=== PATIENT | female | born 1985 | race Caucasian/White ===

== ENCOUNTER 2022-05-26 08:01 | Emergency (ER) | payer BC, SELFPAY ==
[2022-05-26 08:05] VITALS: BP 122/63; PULSE 95; RESP 18; TEMP 36.5; O2SAT 98; BMI 34.7
[2022-05-26 08:13] VITALS: BP 122/63; PULSE 95; RESP 18; TEMP 36.5; O2SAT 98
--- NOTE | 2022-05-26 08:13 | HMH.EDUTC ---
[facility] [place] Clinical Impression: Otitis media Qualifiers: Otitis media type: suppurative Chronicity: acute Laterality: right Recurrence: non-recurrent Spontaneous tympanic membrane rupture: without spontaneous rupture Qualified Code(s): H66.001 - Acute suppurative otitis media without spontaneous rupture of ear drum, right ear Disposition: Home, Self-Care Condition on Discharge: Good Instructions: Middle Ear Infection Additional Instructions: Start antibiotic as soon as possible and be sure to take as ordered for full length of time even though he should start feeling better in 24-48 hours. Tylenol or Motrin as needed for pain or fever Encourage fluids, water, Gatorade, Powerade, Pedialyte if /toddler/child Warm compresses often helps when placed over ear Return immediately for new or worsening symptoms no noticeable improvement in 48-72 hours and in 10-14 days to ensure the ears are return to baseline. Follow-up with primary care Prescriptions: Amoxicillin [Amoxicillin 500mg Tab] 500 mg PO BID 10 Days #20 tab Transmission Status: Pending to [facility] Fluticasone Propionate [Flonase 50mcg nasal spray 16gm] 1 spr NS DAILY 14 Days #9.9 ml Transmission Status: Pending to [facility] Referrals: Jamari Lee APRN [Primary Care Provider] - Time of Disposition: 08:17 Medical Decision Making - Dmitriy Inquiry Pt receiving controlled substance: No Vital Signs: 05/26/22 08:05 Temperature 97.7 F Temperature Source Oral Pulse Rate [Left Brachial] 95 H Respiratory Rate 18 Blood Pressure [Left Arm] 122/63 Blood Pressure Mean [Left Arm] 82 Blood Pressure Source [Left Arm] Automatic Cuff Blood Pressure Position [Left Arm] Sitting 02 Sat by Pulse Oximetry 98 Oxygen Delivery Method Room Air [facility] [place] HPI - General Chief complaint: Urgent [facility] Stated complaint: ear pain,dizzy Time Seen by Provider: 05/26/22 08:13 Mode of Arrival: Ambulatory Source of Information: Patient Limitations: No Limitations Description of Symptoms (Recalled from Triage Doc. by RN): PATIENT C/O STOPPED UP RIGHT EAR AND DIZZINESS X 1 WEEK HEENT Symptoms (Recalled from RN notes): Yes Resp Symptoms (Recalled from RN notes): No Skin Symptoms (Recalled from RN notes): No MS Symptoms (Recalled from RN notes): No Functional Status (Recalled from RN notes): WNL - History of Present Illness Provider Complaint: 37 yr old female presents for rt ear fullnes,cant hear out of rt ear and dizzy for 1 week - Related Data Home Medications Medication Instructions Recorded Confirmed acyclovir 400 mg tablet 400 mg PO .prn tab 03/28/22 03/28/22 buspirone 10 mg tablet 10 mg PO DAILY tab 03/28/22 03/28/22 omeprazole 20 mg capsule,delayed 20 mg PO DAILY cap 03/28/22 03/28/22 release sertraline 50 mg tablet 50 mg PO tab 03/28/22 03/28/22 Previous Rx's Medication Instructions Recorded benzonatate 100 mg capsule 100 mg PO TID PRN #30 cap 03/28/22 zkmcnxiwvzeezzm-tppzaigrapuxwnv-AJ 10 ml PO Q6H PRN #200 ml 03/30/22 2 mg-30 mg-10 mg/5 mL oral syrup Amoxicillin [Amoxicillin 500mg Tab] 500 mg PO BID 10 Days #20 tab 05/26/22 Fluticasone Propionate [Flonase 1 spr NS DAILY 14 Days #9.9 ml 05/26/22 50mcg nasal spray 16gm] Allergies Allergy/AdvReac Type Severity Reaction Status Date / Time No Known Allergies Allergy Verified 03/28/22 13:09 - Worker's Comp Is this a Worker's Comp case?: No [facility] History - Hepatitis A Screen Attestation statement:: This patient has been screened for Hepatitis A risk factors. I have reviewed the patient's past medical history: Yes Medical History: Reports:: Anxiety, Depression, Gastroesophageal Reflux Disease(GERD) - Social History Smoking Status: Never smoker Alcohol Intake: never Substance Use Type: denies use Occupational Status: unemployed - Psychiatric History Pschychiatric History:: Reports:: Anxiety, Depression Family Hx:: No significant family history R
== END 2022-05-26 08:20 | disposition home or self-care (01) ==
PROVIDERS: Emergency Provider Nurse Practitioner Family; PCP Nurse Practitioner Family
DX: H66.001 Acute suppurative otitis media without spontaneous rupture of ear drum, right ear (principal); H92.03 Otalgia, bilateral; R42 Dizziness and giddiness; H93.8X1 Other specified disorders of right ear
CPT/HCPCS: 99212; G0463

== ENCOUNTER 2022-07-05 17:09 | Emergency (ER) | payer BC, SELFPAY ==
--- NOTE | 2022-07-05 17:18 | EXP.UTC ---
Discharge Plan Disposition Patient Disposition: Home, Self-Care Condition: Good Prescriptions Prescriptions: New azithromycin [Zithromax] 250 mg tablet 250 mg PO UD DOSE PK Qty: 6 0RF Rx Instructions: Take two (2) tablets today, then one (1) tablet days #2 thru #5 methylprednisolone 4 mg Tablets,Dose Pack 4 mg PO DIRECTED Qty: 21 0RF ondansetron 4 mg Tablet,Disintegrating 4 mg PO Q8H PRN (Reason: Nausea) Qty: 20 0RF No Action sertraline 50 mg tablet 50 mg PO omeprazole 20 mg capsule,delayed release(DR/EC) 20 mg PO DAILY buspirone 10 mg tablet 10 mg PO DAILY acyclovir 400 mg tablet 400 mg PO .prn benzonatate 100 mg capsule 100 mg PO TID PRN (Reason: cough) Qty: 30 0RF idhrglmnisfhwki-gxiwdeyfa-BY 2-30-10 mg/5 mL syrup 10 ml PO Q6H PRN (Reason: cold symptoms) Qty: 200 0RF Rx Instructions: Tessalon ineffective amoxicillin 500 MG tablet 500 mg PO BID 10 Days Qty: 20 0RF fluticasone propionate 120 SPR/BOT bottle 1 spr NS DAILY 14 Days Qty: 9.9 0RF Referrals Follow up/Referrals: Jamari Lee APRN [Primary Care Provider] - See instructions Activity Restrictions/Add. Instructions Additional Instructions/Restrictions: Drink plenty of fluids. Take tylenol or ibuprofen for pain or fever. Take the medications as directed. Follow up with your regular doctor. GO TO THE ER FOR ANY WORSENING SYMPTOMS Quarantine until you know the results of your covid-19 test. Notify your school or workplace of your results and follow their instructions regarding return to work/school. Clinical Impressions Clinical Impression: Otitis media, Benign paroxysmal positional vertigo Stand Alone Forms Stand Alone Forms: Work/School Release Instructions Patient Instructions: DI for Benign Paroxysmal Positional Vertigo Discharge ED Provider: Ivan Hylton [facility] General Stated complaint: Dizzy nausa Time Seen by Provider: 07/05/22 17:19 History of Present Illness Provider Complaint: She states that she has been having right ear pain and intermittent dizziness since this morning. She has a history of getting vertigo when she has ear infections. Related Data Home Medications Medication Instructions Recorded Confirmed acyclovir 400 mg tablet 400 mg PO .prn 03/28/22 03/28/22 buspirone 10 mg tablet 10 mg PO DAILY 03/28/22 03/28/22 omeprazole 20 mg capsule,delayed 20 mg PO DAILY 03/28/22 03/28/22 release sertraline 50 mg tablet 50 mg PO 03/28/22 03/28/22 Previous Rx's Medication Instructions Recorded benzonatate 100 mg capsule 100 mg PO TID PRN cough #30 caps 03/28/22 orhyunkchnuvrdz-gajxesmemeuelwj-VN 10 ml PO Q6H PRN cold symptoms 03/30/22 2 mg-30 mg-10 mg/5 mL oral syrup #200 mL amoxicillin 500 mg tablet 500 mg PO BID 10 days #20 tabs 05/26/22 fluticasone propionate 50 1 spr intranasal DAILY 14 days 05/26/22 mcg/actuation nasal #9.9 mL spray,suspension azithromycin 250 mg tablet 250 mg PO UD DOSE PK #6 tabs 07/05/22 (Zithromax) methylprednisolone 4 mg tablets in 4 mg PO DIRECTED #21 tabs 07/05/22 a dose pack ondansetron 4 mg disintegrating 4 mg PO Q8H PRN Nausea #20 tabs 07/05/22 tablet Allergies Allergy/AdvReac Type Severity Reaction Status Date / Time No Known Allergies Allergy Verified 03/28/22 13:09 PFSH PFSH Social History Smoking Status: Never smoker alcohol intake: never substance use type: denies use current occupational status: unemployed Travel in the last 8 weeks: None ROS Obtained: Yes All systems reviewed & no additional complaints except as documented Constitutional Constitutional: Denies chills, Reports fever(s) and Reports poor appetite Eyes Eyes: Denies eye discharge ENT Ears, Nose, Mouth, and Throat: Reports otalgia, Denies hearing loss, Denies sinus pain and Reports sore throat Cardiovascular Cardiovascular: Denies chest pain and Denies dyspnea Respiratory
[2022-07-05 17:19] VITALS: BP 113/67; PULSE 89; RESP 16; TEMP 36.9; O2SAT 96; BMI 34.3
[2022-07-05 18:01] VITALS: BP 113/67; PULSE 89; RESP 16; TEMP 36.9
== END 2022-07-05 18:07 | disposition home or self-care (01) ==
PROVIDERS: Emergency Provider Nurse Practitioner Family; PCP Nurse Practitioner Family
DX: H66.90 Otitis media, unspecified, unspecified ear (principal); H81.10 Benign paroxysmal vertigo, unspecified ear
CPT/HCPCS: 99212; C9803; G0463; U0003; U0005

== ENCOUNTER 2022-10-11 09:57 | Emergency (ER) | payer BC, SELFPAY ==
--- NOTE | 2022-10-11 10:45 | EXP.UTC ---
Discharge Plan Disposition Patient Disposition: Home, Self-Care Condition: Good Prescriptions Prescriptions: New azithromycin [Zithromax] 250 mg tablet 250 mg PO UD DOSE PK Qty: 6 0RF Rx Instructions: Take two (2) tablets today, then one (1) tablet days #2 thru #5 benzonatate [benzonatate] 100 mg capsule 100 mg PO TIDP PRN (Reason: Cough) Qty: 30 0RF methylprednisolone 4 mg Tablets,Dose Pack 4 mg PO DIRECTED Qty: 21 0RF No Action sertraline 50 mg tablet 50 mg PO omeprazole 20 mg capsule,delayed release(DR/EC) 20 mg PO DAILY buspirone 10 mg tablet 10 mg PO DAILY acyclovir 400 mg tablet 400 mg PO .prn fluticasone propionate 50 mcg/actuation spray,suspension 1 spray NS DAILY 14 Days Qty: 9.9 1RF phentermine 37.5 mg tablet 37.5 mg PO DAILY Label Comments: Patient states she only takes 1/2 tablet Rx Instructions: must administer 30 minutes before or 1-2 hours after breakfast fluticasone propionate [Flonase Allergy Relief] 50 mcg/actuation spray,suspension 1 spray intranasal DAILY Qty: 16 2RF Rx Instructions: administer into each nostril azelastine 205.5 mcg (0.15 %) spray,non-aerosol 1 spray intranasal HS Qty: 30 2RF Rx Instructions: administer into each nostril ondansetron 4 mg Tablet,Disintegrating 4 mg PO Q8H PRN (Reason: Nausea) Qty: 20 0RF Referrals Follow up/Referrals: Jamari Lee APRN [Primary Care Provider] - See instructions Activity Restrictions/Add. Instructions Additional Instructions/Restrictions: Drink plenty of fluids. Take tylenol or ibuprofen for pain or fever. Take the medications as directed. Follow up with your regular doctor. GO TO THE ER FOR ANY WORSENING SYMPTOMS Clinical Impressions Clinical Impression: Bronchitis, Acute viral syndrome Stand Alone Forms Stand Alone Forms: Work/School Release Instructions Patient Instructions: DI for Acute Bronchitis, DI for Viral Syndrome Discharge ED Provider: Ivan Hylton [facility] [place] Stated complaint: DIXON, body aches, congestion Time Seen by Provider: 10/11/22 10:45 History of Present Illness Provider Complaint: She states that for the past 2 days she has had sore throat, chills, body aches and low grade fever. Related Data Home Medications Medication Instructions Recorded Confirmed acyclovir 400 mg tablet 400 mg PO .prn 03/28/22 10/03/22 buspirone 10 mg tablet 10 mg PO DAILY 03/28/22 10/03/22 omeprazole 20 mg capsule,delayed 20 mg PO DAILY 03/28/22 10/03/22 release sertraline 50 mg tablet 50 mg PO 03/28/22 10/03/22 phentermine 37.5 mg tablet 37.5 mg PO DAILY weight loss 08/02/22 10/03/22 Previous Rx's Medication Instructions Recorded ondansetron 4 mg disintegrating 4 mg PO Q8H PRN Nausea #20 tabs 07/05/22 tablet fluticasone propionate 50 1 spray intranasal DAILY 14 days 08/02/22 mcg/actuation nasal #9.9 mL spray,suspension azelastine 205.5 mcg (0.15 %) 1 spray intranasal HS #30 mL 10/03/22 nasal spray fluticasone propionate 50 1 spray intranasal DAILY #16 grams 10/03/22 mcg/actuation nasal spray,suspension (Flonase Allergy Relief) azithromycin 250 mg tablet 250 mg PO UD DOSE PK #6 tabs 10/11/22 (Zithromax) benzonatate 100 mg capsule 100 mg PO TIDP PRN Cough #30 caps 10/11/22 methylprednisolone 4 mg tablets in 4 mg PO DIRECTED #21 tabs 10/11/22 a dose pack Allergies Allergy/AdvReac Type Severity Reaction Status Date / Time No Known Allergies Allergy Verified 10/11/22 11:02 [facility] Disclaimer: The information contained in this section may have been updated after the patient was seen, as this information can be updated by other users. Medical History Anxiety Bilateral serous otitis media Depression Surgical History History of placement of ear tubes Histo
[2022-10-11 10:57] VITALS: BP 108/77; PULSE 87; RESP 16; TEMP 37; O2SAT 97; BMI 32.4
[2022-10-11 11:05] LABS: UTC Strep Screen (Rapid) Negative (Negative)
[2022-10-11 11:29] VITALS: BP 108/77; PULSE 87; RESP 16; TEMP 37
[2022-10-11 11:54] LABS: Influenza A, PCR Not Detected (NotDetected); Influenza B, PCR Not Detected (NotDetected)
[2022-10-11 12:18] LABS: Coronavirus 19, PCR Detected (NotDetected)
== END 2022-10-11 11:29 | disposition home or self-care (01) ==
PROVIDERS: Emergency Provider Nurse Practitioner Family; PCP Nurse Practitioner Family
DX: U07.1 COVID-19 (principal); H65.93 Unspecified nonsuppurative otitis media, bilateral; J02.9 Acute pharyngitis, unspecified; R50.9 Fever, unspecified; R05.9 Cough, unspecified; R11.0 Nausea; M79.10 Myalgia, unspecified site; R09.81 Nasal congestion; F32.A Depression, unspecified; F41.9 Anxiety disorder, unspecified; Z79.51 Long term (current) use of inhaled steroids; Z79.52 Long term (current) use of systemic steroids; Z79.899 Other long term (current) drug therapy
CPT/HCPCS: 87880; 99213; C9803; G0463; U0003; U0005

== ENCOUNTER → 2022-11-08 06:06 | Outpatient (CLI) | payer BC, SELFPAY ==
[2022-11-08 18:20] LABS: Chloride 107 mmol/L (98-107); Potassium 4.2 mmoL/L (3.5-5.1); Sodium 141 mmol/L (136-145)
[2022-11-08 18:22] LABS: Alanine Aminotransferase 14 U/L (12-78); Aspartate Amino Transferase 34 U/L (14-36); Blood Urea Nitrogen 15 mg/dl (7-17); Estimated Glomerular Filt Rate 82 ml/min (>60); GFR (African American) 99 ML/MIN (>60)
[2022-11-08 18:23] LABS: Albumin Level 4.2 g/dl (3.5-5.0); Albumin/Globulin Ratio 1.5 (1.1-1.8); Alkaline Phosphatase 83 U/L (38-126); Anion Gap 12.2 mEq/L (5-15); Bilirubin,Total 0.6 mg/dl (0.2-1.3); Calcium 8.9 mg/dl (8.4-10.2); Carbon Dioxide 26 mmol/L (22.0-30.0); Chol/HDL Ratio 3.8 (1-3.5); Cholesterol 218 mg/dl (140-200); Globulin 2.8 g/dL (1.3-3.2); Glucose 78 mg/dl (74-100); HDL Cholesterol 57 mg/dl (40-60); Triglycerides 138 mg/dl (30-150); VLDL Cholesterol 28 mg/dL (0-40)
[2022-11-08 18:24] LABS: Basophils # 0.1 K/mm3 (0-0.2); Basophils % 1.2 % (0.1-2.0); Eosinophils # 0.4 K/mm3 (0.0-0.4); Eosinophils % 4.8 % (0.1-12.0); Hematocrit 42.7 % (37.0-47.0); Hemoglobin 13.8 g/dL (12.2-16.2); Lymphocytes # 2.7 K/mm3 (0.7-4.5); Lymphocytes % 36.7 % (10-50); Mean Corpuscular HGB Conc 32.4 g/dL (31.8-35.4); Mean Corpuscular Hemoglobin 28.6 pg (27.0-31.2); Mean Corpuscular Volume 88.3 fl (81-99); Mean Platelet Volume 7.4 fl (7.4-10.4); Monocytes # 0.3 K/mm3 (0.1-1.0); Monocytes % 4.5 % (1.7-9.3); Neutrophils # 3.9 K/mm3 (1.8-7.8); Neutrophils % 52.6 % (37.0-80.0); Platelet Count 346 K/mm3 (142-424); Red Blood Count 4.84 M/mm3 (4.20-5.40); Red Cell Distribution Width 12.4 % (11.5-17.5); White Blood Count 7.3 K/mm3 (4.8-10.8)
[2022-11-08 18:34] LABS: Direct LDL Cholesterol 88.56 mg/dL (100-129)
[2022-11-08 18:51] LABS: Thyroid Stimulating Hormone 0.98 uIU/mL (0.465-4.68)
== END ==
PROVIDERS: PCP Nurse Practitioner Family; Visit Provider Nurse Practitioner Family
DX: R53.83 Other fatigue (principal)
CPT/HCPCS: 80053; 80061; 84443; 85025

== ENCOUNTER 2023-01-22 19:55 | Emergency (ER) | payer BC, SELFPAY ==
[2023-01-22 20:03] VITALS: BP 137/78; PULSE 98; O2SAT 100
[2023-01-22 20:07] VITALS: BP 137/78; PULSE 88; RESP 18; TEMP 36.6; O2SAT 98; BMI 32.3
--- NOTE | 2023-01-22 20:16 | CT_ITS ---
PROCEDURE INFORMATION: Exam: CT Abdomen And Pelvis With Contrast Exam date and time: 01/22/2023 8:58 PM Age: 37 years old Clinical indication: Abdominal pain; Periumbilical; Prior surgery; Surgery date: 6+ months; Surgery type: Cysts removed; Additional info: Abd pain TECHNIQUE: Imaging protocol: Computed tomography of the abdomen and pelvis with contrast. Radiation optimization: All CT scans at this facility use at least one of these dose optimization techniques: automated exposure control; mA and/or kV adjustment per patient size (includes targeted exams where dose is matched to clinical indication); or iterative reconstruction. Contrast material: ISOVUE; Contrast volume: 75 ml; Contrast route: IV; REPORTING DATA: Count of CT and Cardiac NM exams in prior 12 months: This patient has received 0 known CTs and 0 known cardiac nuclear medicine studies in the 12 months prior to the current study. COMPARISON: No relevant prior studies available. FINDINGS: Liver: Normal. No mass. Gallbladder and bile ducts: Normal. No calcified stones. No ductal dilation. Pancreas: Normal. No ductal dilation. Spleen: Normal. No splenomegaly. Adrenal glands: Normal. No mass. Kidneys and ureters: Normal. No hydronephrosis. Stomach and bowel: See Appendix finding. Appendix: The appendix is not visualized with surgical changes at the cecum suggesting appendectomy. Intraperitoneal space: Unremarkable. No free air. No significant fluid collection. Vasculature: Unremarkable. No abdominal aortic aneurysm. Lymph nodes: Unremarkable. No enlarged lymph nodes. Urinary bladder: Unremarkable as visualized. Reproductive: Enlargement of the ovaries left greater than right with left ovary having multiple cysts largest measures up to 4 cm in diameter. Bones/joints: Unremarkable. No acute fracture. Soft tissues: Normal. IMPRESSION: Enlargement of the ovaries left greater than right with left ovary having multiple cysts largest measures up to 4 cm in diameter. Recommend further evaluation with pelvic ultrasound for ovarian torsion.
[2023-01-22 20:26] LABS: Microscopic, Urine URINE MICROSCOPIC (MICROSCOPIC)
[2023-01-22 20:28] LABS: Chloride 105 mmol/L (98-107); Potassium 3.5 mmoL/L (3.5-5.1); Sodium 139 mmol/L (136-145)
[2023-01-22 20:30] LABS: Amylase 94 U/L (30-110); Blood Urea Nitrogen 18 mg/dl (7-17); Creatinine Clearance Estimated 136 mL/min (50-200); Estimated Glomerular Filt Rate 82 ml/min (>60); GFR (African American) 99 ML/MIN (>60)
[2023-01-22 20:31] VITALS: BP 123/81
[2023-01-22 20:31] LABS: Alanine Aminotransferase 15 U/L (12-78); Albumin Level 4.7 g/dl (3.5-5.0); Albumin/Globulin Ratio 1.3 (1.1-1.8); Alkaline Phosphatase 61 U/L (38-126); Anion Gap 11.5 mEq/L (5-15); Aspartate Amino Transferase 21 U/L (14-36); Basophils # 0.1 K/mm3 (0-0.2); Basophils % 1.1 % (0.1-2.0); Bilirubin,Total 0.4 mg/dl (0.2-1.3); Calcium 8.9 mg/dl (8.4-10.2); Carbon Dioxide 26 mmol/L (22.0-30.0); Eosinophils # 0.4 K/mm3 (0.0-0.4); Eosinophils % 4.3 % (0.1-12.0); Globulin 3.5 g/dL (1.3-3.2); Glucose 51 mg/dl (74-100); Hemoglobin 15.1 g/dL (12.2-16.2); Lipase 97 U/L (23-300); Lymphocytes # 2.8 K/mm3 (0.7-4.5); Lymphocytes % 33.1 % (10-50); Mean Corpuscular HGB Conc 32.9 g/dL (31.8-35.4); Mean Corpuscular Hemoglobin 28.6 pg (27.0-31.2); Mean Platelet Volume 7.4 fl (7.4-10.4); Monocytes # 0.5 K/mm3 (0.1-1.0); Monocytes % 6.2 % (1.7-9.3); Neutrophils # 4.7 K/mm3 (1.8-7.8); Neutrophils % 55.3 % (37.0-80.0); Platelet Count 269 K/mm3 (142-424); Red Blood Count 5.29 M/mm3 (4.20-5.40); Red Cell Distribution Width 12.8 % (11.5-17.5); Total Protein,Serum 8.2 g/dl (6.3-8.2); White Blood Count 8.4 K/mm3 (4.8-10.8)
[2023-01-22 20:34] LABS: Appearance,Urine CLEAR (Clear); Bilirubin,Urine Negative (Negative); Blood, Urine Negative (Negative); Color,Urine YELLOW (Yellow); Glucose,Urine (UA) Negative (Negative); Ketones,Urine Negative (Negative); Leukocyte Esterase,Urine Negative (Negative); Nitrate,Urine Negative (Negative); Protein,Urine Negative (Negative); Specific Gravity, Urine >= 1.030 (1.005-1.030); Urobilinogen,Urine 0.2 EU/dl (0.2)
[2023-01-22 20:37] LABS: C-Reactive Protein 4.2 mg/L (0-4)
--- NOTE | 2023-01-22 20:40 | HMH.EDUROGF ---
Discharge Plan Disposition Patient Disposition: Home, Self-Care Chief Complaint: Urogenital-Female Prescriptions Prescriptions: No Action buspirone 10 mg tablet 10 mg PO DAILY sertraline 50 mg tablet 50 mg PO DAILY Referrals Follow up/Referrals: Jamari Lee APRN [Primary Care Provider] - See instructions Clinical Impressions Clinical Impression: Ovarian cyst, Pelvic pain Instructions Patient Instructions: DI for Ovarian Cyst Discharge ED Provider: Ceci (ED)Cooper Female Urogenital HPI General Chief complaint: Urogenital-Female Stated complaint: abd pain Time Seen by Provider: 01/22/23 20:41 Mode of Arrival: Ambulatory Source of Information: Patient and Medical Record Limitations: No Limitations Description of Symptoms (Recalled from ER Triage Doc. by RN): Pt arrives via private vehicle. C/O lower central abdominal pain that radiates into left lower abdominal pain and right lower abdominal pain. States she woke up with the pain. Also states c/o mild cramping following urination for prior week. States that she has been taking azo to treat it. History of Present Illness HPI Narrative: pt with abd pain w/o diarrhea or vomiting - no vaginal bleeding - hx of endometrosis MD Complaint: dysuria Onset (ago): hour(s) Severity: moderate Duration: intermittent : No Associated symptoms: denies other symptoms Related Data Home Medications Medication Instructions Recorded Confirmed buspirone 10 mg tablet 10 mg PO DAILY Depression 01/22/23 01/22/23 sertraline 50 mg tablet 50 mg PO DAILY Depression 01/22/23 01/22/23 Allergies Allergy/AdvReac Type Severity Reaction Status Date / Time No Known Allergies Allergy Verified 11/08/22 15:54 [facility] Disclaimer: The information contained in this section may have been updated after the patient was seen, as this information can be updated by other users. Medical History Anxiety Bilateral serous otitis media Depression Surgical History History of placement of ear tubes History of removal of ovarian cyst Social History Smoking Status: Never smoker alcohol intake: never substance use type: denies use current occupational status: unemployed Travel in the last 8 weeks: None ROS Obtained: Yes All systems reviewed & no additional complaints except as documented Physical Exam General General appearance: alert Head Head exam: normocephalic Eye Eye exam: Present PERRL and EOMI ENT ENT exam: Present mucous membranes moist Neck Neck exam: Present full ROM and trachea midline Respiratory Respiratory exam: Absent respiratory distress Cardiovascular Cardiovascular exam: Present regular rate Abdominal Exam Abdominal exam: Present soft and tenderness; Absent guarding or rebound Abdominal tenderness: Present diffuse and mild Extremities Exam Extremities exam: Present full ROM Neurological Exam Neurological exam: Present alert, oriented X3 and CN II-XII intact; Absent motor sensory deficit Skin Skin exam: Absent rash Medical Decision Making Medical Records Medical records reviewed: Yes I reviewed the patient's medical records. Dmitriy Inquiry Pt receiving controlled substance: No Vital Signs: 01/22/23 20:07 01/22/23 20:03 01/22/23 20:31 Temperature 98 F Temperature Source Oral Pulse Rate 98 H Pulse Rate [Apical] 88 Respiratory Rate 18 Blood Pressure 137/78 123/81 Blood Pressure [Right Arm] 137/78 Blood Pressure Mean 93 Blood Pressure Mean [Right Arm] 97 Blood Pressure Source [Right Arm] Automatic Cuff Blood Pressure Position [Right Arm] Sitting 02 Sat by Pulse Oximetry 98 100 Oxygen Delivery Method Room Air 01/22/23 21:31 01/22/23 22:01 Temperature Temperature Source Pulse Rate 77 Pulse Rate [Apical] Respiratory Rate
[2023-01-22 20:45] LABS: Urine Pregnancy, HCG Qual. Negative (Negative)
[2023-01-22 20:49] LABS: Procalcitonin < 0.030 ng/mL (0.0-2.0)
--- NOTE | 2023-01-22 20:53 | PC.NURSE ---
Pt gone to RAD via wheelchair
--- NOTE | 2023-01-22 21:02 | PC.NURSE ---
PT back from RAD
[2023-01-22 21:08] LABS: Erythrocyte Sedimentation Rate 5 mm/hr (0-20)
--- NOTE | 2023-01-22 21:08 | PC.NURSE ---
Rounded on pt. Pt provided with warm blanket. No other needs or complaints voiced at this time. Call light within reach.
[2023-01-22 21:29] LABS: Bacteria,Urine Trace /lpf; Mucus,Urine Trace /lpf
[2023-01-22 21:31] VITALS: BP 113/70; PULSE 77; O2SAT 100
--- NOTE | 2023-01-22 21:51 | US_ITS ---
PROCEDURE INFORMATION: Exam: US Pelvis, Transvaginal Exam date and time: 01/22/2023 10:25 PM Age: 37 years old Clinical indication: Pain and abnormal findings; Abnormal imaging test; Pelvic pain; Prior surgery; Surgery date: 6+ months; Surgery type: Endometriosis; Additional info: CT reasing TECHNIQUE: Imaging protocol: Real-time transvaginal pelvic ultrasound with image documentation. Transvaginal imaging was used for better evaluation of the endometrium, adnexa, and/or cervix. COMPARISON: CT ABDOMEN PELVIS W CON 01/22/2023 8:58 PM FINDINGS: Uterus: Uterus is normal. Multiple nabothian cysts and several cystic areas in the uterus. Small uterine fibroid. Uterine fibroid measures 0.7 x 0.8 x 1.4 cm. The uterus measures 8.2 with a 4.4 by 5.3 cm. The endometrial stripe 1 cm. Right ovary/adnexa: Innumerable cysts. Normal ovarian blood flow. Right ovary measures 5.3 x 3.2 cm. Left ovary/adnexa: Enlarged left ovary with a few lesions likely reflecting endometriomas. Largest measures 2.5 x 2.2 cm. Normal ovarian blood flow. Left ovary measures 7.5 x 5.4 cm. Intraperitoneal space: No free fluid. IMPRESSION: No acute findings. No torsion. Probable endometriomas in the left ovary and simple cysts in the right ovary. No free fluid. Small uterine fibroid.
[2023-01-22 22:01] VITALS: BP 111/65
--- NOTE | 2023-01-22 22:20 | PC.NURSE ---
Pt gone to U/S via wheelchair
--- NOTE | 2023-01-22 22:53 | PC.NURSE ---
Pt back from U/S
[2023-01-22 22:59] VITALS: BP 111/65; PULSE 80; RESP 16; TEMP 36.6; O2SAT 97
--- NOTE | 2023-01-22 23:05 | PC.NURSE ---
Dr. Ornelas at to update pt on results
== END 2023-01-22 23:12 | disposition home or self-care (01) ==
PROVIDERS: Emergency Provider Emergency Medicine; PCP Nurse Practitioner Family
DX: N94.9 Unspecified condition associated with female genital organs and menstrual cycle (principal); N83.209 Unspecified ovarian cyst, unspecified side
CPT/HCPCS: 74177; 76830; 80053; 81001; 81025; 82150; 83690; 84145; 85025; 85651; 86140; 96361; 96374; 99284; 99285; J2405; Q9967

== ENCOUNTER 2023-03-04 16:51 | Outpatient (CLI) | payer BC, SELFPAY ==
[2023-03-04 17:42] LABS: Adenovirus F 40/41, stool Not Detected (NotDetected); Astrovirus Not Detected (NotDetected); Campylobacter Not Detected (NotDetected); Clostridium Difficile A/B, PCR Not Detected (NotDetected); Cyclospora Cayetanesis Not Detected (NotDetected); Entamoeba histolytica Not Detected (NotDetected); Enteroaggregative E coli Not Detected (NotDetected); Enteropathogenic E coli Not Detected (NotDetected); Enterotoxigenic E coli Not Detected (NotDetected); Giardia lamblia Not Detected (NotDetected); Norovirus Not Detected (NotDetected); Plesimonas Shigalloides, PCR Not Detected (NotDetected); Rotavirus A Not Detected (NotDetected); Salmonella, PCR Not Detected (NotDetected); Sapovirus Not Detected (NotDetected); Shiga-like toxin E coli Not Detected (NotDetected); Shigella Enterovasive E coli Not Detected (NotDetected); Vibrio Cholerae Not Detected (NotDetected); Vibrio, PCR Not Detected (NotDetected); Yersinia Entercolitica, PCR Not Detected (NotDetected)
[2023-03-04 18:00] VITALS: BP 118/72; PULSE 88; RESP 16; O2SAT 100
[2023-03-04 18:19] LABS: Microscopic, Urine URINE MICROSCOPIC (MICROSCOPIC)
[2023-03-04 18:33] LABS: Basophils % 0.6 % (0.1-2.0); Eosinophils # 0.2 K/mm3 (0.0-0.4); Eosinophils % 4.5 % (0.1-12.0); Hematocrit 42.9 % (37.0-47.0); Hemoglobin 14.3 g/dL (12.2-16.2); Lymphocytes # 1.2 K/mm3 (0.7-4.5); Lymphocytes % 24.2 % (10-50); Mean Corpuscular HGB Conc 33.2 g/dL (31.8-35.4); Mean Corpuscular Hemoglobin 28.6 pg (27.0-31.2); Mean Corpuscular Volume 85.9 fl (81-99); Mean Platelet Volume 7.3 fl (7.4-10.4); Monocytes # 0.6 K/mm3 (0.1-1.0); Monocytes % 11.3 % (1.7-9.3); Neutrophils # 2.9 K/mm3 (1.8-7.8); Neutrophils % 59.4 % (37.0-80.0); Platelet Count 207 K/mm3 (142-424); Red Blood Count 4.99 M/mm3 (4.20-5.40); Red Cell Distribution Width 12.7 % (11.5-17.5); White Blood Count 4.9 K/mm3 (4.8-10.8)
[2023-03-04 18:34] LABS: Appearance,Urine CLEAR (Clear); Blood, Urine Negative (Negative); Color,Urine YELLOW (Yellow); Glucose,Urine (UA) Negative (Negative); Ketones,Urine TRACE (Negative); Leukocyte Esterase,Urine Negative (Negative); Nitrate,Urine Negative (Negative); Protein,Urine 1+ (Negative); Specific Gravity, Urine 1.025 (1.005-1.030); Urobilinogen,Urine 0.2 EU/dl (0.2)
[2023-03-04 18:42] LABS: Bilirubin,Urine 1+ (Negative)
[2023-03-04 18:45] LABS: Alanine Aminotransferase 35 U/L (12-78); Albumin Level 3.5 g/dl (3.5-5.0); Albumin/Globulin Ratio 1.2 (1.1-1.8); Alkaline Phosphatase 61 U/L (38-126); Aspartate Amino Transferase 47 U/L (14-36); Bilirubin,Total 0.3 mg/dl (0.2-1.3); Blood Urea Nitrogen 11 mg/dl (7-17); Carbon Dioxide 25 mmol/L (22.0-30.0); Estimated Glomerular Filt Rate 82 ml/min (>60); GFR (African American) 99 ML/MIN (>60); Total Protein,Serum 6.5 g/dl (6.3-8.2)
[2023-03-04 18:46] LABS: Calcium 7.9 mg/dl (8.4-10.2); Glucose 88 mg/dl (74-100)
[2023-03-04 18:53] LABS: Bacteria,Urine 3+ /lpf; Mucus,Urine 3+ /lpf; RBC,Urine Occasional #/hpf (0-3)
[2023-03-04 18:55] LABS: Sodium 137 mmol/L (136-145)
[2023-03-04 18:56] LABS: Chloride 102 mmol/L (98-107)
[2023-03-04 19:03] LABS: Anion Gap 12.9 mEq/L (5-15); Potassium 2.9 mmoL/L (3.5-5.1)
[2023-03-04 19:07] VITALS: BP 110/67; PULSE 76; RESP 16; O2SAT 100
[2023-03-04 23:52] LABS: Cryptosporidium Detected (NotDetected)
[2023-03-05 08:57] LABS: Urine Pregnancy, HCG Qual. Positive (Negative)
[2023-03-05 09:26] LABS: HCG,Quantitative 1332 mIU/ml (0-5.42)
== END 2023-03-04 18:50 | disposition home or self-care (01) ==
PROVIDERS: PCP Physician Assistant; Visit Provider Physician Assistant
DX: E86.0 Dehydration (principal); R11.2 Nausea with vomiting, unspecified
CPT/HCPCS: 36415; 80053; 81001; 81025; 84702; 85025; 87086; 87507; 96365; G0463

== ENCOUNTER → 2023-03-08 17:04 | Outpatient (CLI) | payer BC, SELFPAY ==
[2023-03-08 18:16] LABS: HCG,Quantitative 3878 mIU/ml (0-5.42)
[2023-03-08 18:40] LABS: Alanine Aminotransferase 209 U/L (12-78); Albumin Level 3.7 g/dl (3.5-5.0); Albumin/Globulin Ratio 1.3 (1.1-1.8); Alkaline Phosphatase 78 U/L (38-126); Aspartate Amino Transferase 108 U/L (14-36); Bilirubin,Total 0.3 mg/dl (0.2-1.3); Blood Urea Nitrogen 7 mg/dl (7-17); Calcium 8.5 mg/dl (8.4-10.2); Carbon Dioxide 27 mmol/L (22.0-30.0); Chloride 101 mmol/L (98-107); Estimated Glomerular Filt Rate 95 ml/min (>60); GFR (African American) 115 ML/MIN (>60); Globulin 2.9 g/dL (1.3-3.2); Glucose 84 mg/dl (74-100); Sodium 139 mmol/L (136-145); Total Protein,Serum 6.6 g/dl (6.3-8.2)
== END ==
PROVIDERS: PCP Physician Assistant; Visit Provider Physician Assistant
DX: E87.6 Hypokalemia (principal); Z32.01 Encounter for pregnancy test, result positive
CPT/HCPCS: 80053; 84702

== ENCOUNTER 2023-03-21 07:35 | Emergency (ER) | payer BC, SELFPAY ==
[2023-03-21 07:36] VITALS: BP 125/83; PULSE 106; RESP 18; TEMP 36.6; O2SAT 100; BMI 31.9
--- NOTE | 2023-03-21 07:54 | HMH.EDGENADL ---
Discharge Plan Disposition Patient Disposition: Home, Self-Care Condition: Good Chief Complaint: Vaginal Bleeding Prescriptions Prescriptions: No Action promethazine 12.5 mg tablet 12.5 mg PO TID PRN (Reason: nausea and vomiting) Qty: 30 0RF nitazoxanide [Alinia] 500 mg tablet 500 mg PO BID 3 Days Qty: 6 0RF Rx Instructions: must administer with a meal/food potassium chloride 20 mEq tablet extended release 20 meq PO DAILY Qty: 7 0RF PNV,calcium 72-iron,carb-folic 29 mg iron- 1 mg tablet 1 tab PO DAILY Qty: 30 2RF buspirone 10 mg tablet 10 mg PO DAILY sertraline 50 mg tablet 50 mg PO DAILY Referrals Follow up/Referrals: Chastity Bauman PA [Primary Care Provider] - See instructions Clinical Impressions Clinical Impression: Vaginal bleeding in patient at less than 20 weeks gestation Instructions Patient Instructions: Early Bleeding Print Language Print Language: Sinhala Discharge ED Provider: Randall Leach General Adult HPI General Chief complaint: Vaginal Bleeding Stated complaint: 7 Weeks , bleeding Time Seen by Provider: 03/21/23 10:19 History of Present Illness HPI narrative: Patient presents to the emergency department with lower abdominal cramping and vaginal bleeding. She states that she is approximately 7 weeks . Denies any dysuria, hematuria or frequency. States that this is her first . She has had somewhat intermittent scant amounts of dark vaginal bleeding since she learned she was . She denies any fever, chills, nausea or vomiting. Related Data Home Medications Medication Instructions Recorded Confirmed buspirone 10 mg tablet 10 mg PO DAILY Depression 01/22/23 03/04/23 sertraline 50 mg tablet 50 mg PO DAILY Depression 01/22/23 03/04/23 Previous Rx's Medication Instructions Recorded promethazine 12.5 mg tablet 12.5 mg PO TID PRN nausea and 03/04/23 vomiting #30 tabs nitazoxanide 500 mg tablet (Alinia) 500 mg PO BID 3 days #6 tabs 03/05/23 potassium chloride 20 mEq 20 meq PO DAILY #7 tabs 03/05/23 tablet,extended release vitamins with calcium 1 tab PO DAILY #30 tabs 03/05/23 no.72-iron 29 mg-folic acid 1 mg tablet Allergies Allergy/AdvReac Type Severity Reaction Status Date / Time No Known Allergies Allergy Verified 03/04/23 16:06 [facility] Disclaimer: The information contained in this section may have been updated after the patient was seen, as this information can be updated by other users. Medical History Anxiety Bilateral serous otitis media Depression Surgical History History of placement of ear tubes History of removal of ovarian cyst Social History Smoking Status: Never smoker alcohol intake: never substance use type: denies use current occupational status: unemployed Travel in the last 8 weeks: None ROS Obtained: Yes All systems reviewed & no additional complaints except as documented Genitourinary Female Genitourinary: Reports other (Vaginal bleeding during ) Physical Exam General General appearance: alert and in no apparent distress Head Head exam: atraumatic and normocephalic Eye Eye exam: Present normal appearance and PERRL Respiratory Respiratory exam: Present normal lung sounds bilaterally Cardiovascular Cardiovascular exam: Present regular rate, normal rhythm and normal heart sounds Abdominal Exam Abdominal exam: Present soft, tenderness (Minimal lower quadrant abdominal tenderness bilaterally. No guarding. No rebound. Normal bowel sounds. Nonsurgical abdomen.) and normal bowel sounds Extremities Exam Extremities exam: Present normal inspection Neurological Exam Neurological exam: Present alert and oriented X3 Psychiatric Psychiatric ex
--- NOTE | 2023-03-21 07:58 | US_ITS ---
FINAL REPORT CLINICAL HISTORY: vaginal bleeding FINDINGS: Sonographic images of the pelvis were obtained. A single, living intrauterine is noted. A yolk sac is present and measures 0.44 cm. [place] to rump length measures 11.2 cm which corresponds to 7 weeks 2 days gestation. Heartbeat is identified and measures 111 beats per minute. There is a small cystic area adjacent to the gestational sac versus a small subchorionic hemorrhage. A 6.5 cm complex cystic mass is seen in the left ovary which may represent a hemorrhagic/complex cyst or endometrioma. There is a 1.4 cm right ovarian cyst. IMPRESSION: Single, living, intrauterine gestation with 7 weeks 2 days gestational age. Small cystic area adjacent to the gestational sac versus a small subchorionic hemorrhage. Follow-up ultrasound may be helpful. Bilateral ovarian cysts. Reviewed, Interpreted and Dictated by Jerson Chamberlain III, MD Transcribed by Megan Crenshaw Authenticated and [facility]
[2023-03-21 08:00] VITALS: BP 122/69; PULSE 93; RESP 16; O2SAT 98
--- NOTE | 2023-03-21 08:09 | PC.NURSE ---
Patient to US
--- NOTE | 2023-03-21 08:11 | PC.NURSE ---
pt going for us
[2023-03-21 08:15] LABS: Microscopic, Urine URINE MICROSCOPIC (MICROSCOPIC)
[2023-03-21 08:16] LABS: Appearance,Urine CLEAR (Clear); Bilirubin,Urine Negative (Negative); Blood, Urine 2+ (Negative); Color,Urine YELLOW (Yellow); Glucose,Urine (UA) Negative (Negative); Ketones,Urine Negative (Negative); Leukocyte Esterase,Urine Negative (Negative); Nitrate,Urine Negative (Negative); PH,Urine 5.5 (5.0-8.5); Protein,Urine Negative (Negative); Specific Gravity, Urine >= 1.030 (1.005-1.030); Urobilinogen,Urine 0.2 EU/dl (0.2)
[2023-03-21 08:41] LABS: Bacteria,Urine 2+ /lpf
--- NOTE | 2023-03-21 08:46 | PC.NURSE ---
Patient back from
--- NOTE | 2023-03-21 08:52 | PC.NURSE ---
Rounded on patient; call sanchez within reach of patient
[2023-03-21 09:00] VITALS: BP 108/62; PULSE 91; RESP 18; O2SAT 100
[2023-03-21 09:30] VITALS: BP 122/74; PULSE 93; RESP 18; O2SAT 99
[2023-03-21 10:00] VITALS: BP 122/71; PULSE 87; RESP 16; O2SAT 99
--- NOTE | 2023-03-21 10:10 | PC.NURSE ---
Rounded on patient; call sanchez within reach
[2023-03-21 10:27] VITALS: BP 117/76; PULSE 97; RESP 16; TEMP 36.6
== END 2023-03-21 10:22 | disposition home or self-care (01) ==
PROVIDERS: Emergency Provider Emergency Medicine; PCP Physician Assistant
DX: O26.851 Spotting complicating pregnancy, first trimester (principal); Z3A.01 Less than 8 weeks gestation of pregnancy
CPT/HCPCS: 76801; 81001; 87086; 99284

== ENCOUNTER 2023-04-02 14:12 | Emergency (ER) | payer BC, SELFPAY ==
[2023-04-02] VITALS (9 sets, daily range): BP systolic 103–130; BP diastolic 58–88; PULSE 75–112; RESP 16–18; TEMP 36.6–36.7; O2SAT 96–100; BMI 33.1; BMI 31.8
--- NOTE | 2023-04-02 14:23 | US_ITS ---
FINAL REPORT CLINICAL HISTORY: approx 9 wks , vaginal bleeding FINDINGS: PELVIC ULTRASOUND A single intrauterine gestation is present. [place] lump length is 17.3 mm consistent with 8 weeks 2 days gestation. No movement is noted. No heart tones are recorded. There is a hypoechoic area that may reflect subchorionic hemorrhage. There are multiple left ovarian cysts measuring up to 6.4 cm in aggregate. There is a right corpus luteal cyst. IMPRESSION: Findings concerning for demise. Recommend clinical correlation with quantitative beta HCG. Recommend gynecologic consult and ultrasound follow-up. Possible subchorionic hemorrhage. Multiple left ovarian cysts. Reviewed, Interpreted and Dictated by Sen Valle MD Transcribed by Eyal Pichardo Authenticated and [facility]
--- NOTE | 2023-04-02 14:24 | PC.NURSE ---
rad notified of u/s order
--- NOTE | 2023-04-02 14:27 | PC.WOUNDNOTE ---
DR BARRAGAN AT BEDSIDE
[2023-04-02 14:34] LABS: Microscopic, Urine URINE MICROSCOPIC (MICROSCOPIC)
--- NOTE | 2023-04-02 14:34 | HMH.EDUROGF ---
Discharge Plan Disposition Patient Disposition: Home, Self-Care Condition: Good Prescriptions Prescriptions: No Action promethazine 12.5 mg tablet 12.5 mg PO TID PRN (Reason: nausea and vomiting) Qty: 30 0RF nitazoxanide [Alinia] 500 mg tablet 500 mg PO BID 3 Days Qty: 6 0RF Rx Instructions: must administer with a meal/food potassium chloride 20 mEq tablet extended release 20 meq PO DAILY Qty: 7 0RF PNV,calcium 72-iron,carb-folic 29 mg iron- 1 mg tablet 1 tab PO DAILY Qty: 30 2RF buspirone 10 mg tablet 10 mg PO DAILY sertraline 50 mg tablet 50 mg PO DAILY Referrals Follow up/Referrals: Chastity Bauman PA [Primary Care Provider] - See instructions Activity Restrictions/Add. Instructions Additional Instructions/Restrictions: Follow-up tomorrow with your clarifier. Return for severe bleeding or other concerns. Pelvic rest. Tylenol as needed for discomfort. Clinical Impressions Clinical Impression: demise due to miscarriage, Incomplete miscarriage Stand Alone Forms Stand Alone Forms: Work/School Release Discharge ED Provider: Fredrick Narayanan Female Urogenital HPI General Chief complaint: Vaginal Bleeding Stated complaint: 9 Wks , abd pain vaginal bleeding Time Seen by Provider: 04/02/23 14:25 Mode of Arrival: Ambulatory Limitations: No Limitations Description of Symptoms (Recalled from ER Triage Doc. by RN): PT REPORTS ABOUT 9 WEEKS GESTATION, . REPORTS UPPER ABDOMINAL CRAMPING, SMALL AMOUNT DARK BROWN VAGINAL DISCHARGE WITH WIPING. INTERCOURSE YESTERDAY. STATES ALL SYMPTOMS RESOLVED History of Present Illness HPI Narrative: Patient presents at approximate 9 weeks of with vaginal spotting that began earlier today. On further questioning she has had this intermittently for two or three weeks. She denies pelvic pain at this time. She has had some epigastric discomfort for the last couple days but is currently pain-free with is back to the epigastrium. Related Data Home Medications Medication Instructions Recorded Confirmed buspirone 10 mg tablet 10 mg PO DAILY Depression 01/22/23 03/04/23 sertraline 50 mg tablet 50 mg PO DAILY Depression 01/22/23 03/04/23 Previous Rx's Medication Instructions Recorded promethazine 12.5 mg tablet 12.5 mg PO TID PRN nausea and 03/04/23 vomiting #30 tabs nitazoxanide 500 mg tablet (Alinia) 500 mg PO BID 3 days #6 tabs 03/05/23 potassium chloride 20 mEq 20 meq PO DAILY #7 tabs 03/05/23 tablet,extended release vitamins with calcium 1 tab PO DAILY #30 tabs 03/05/23 no.72-iron 29 mg-folic acid 1 mg tablet Allergies Allergy/AdvReac Type Severity Reaction Status Date / Time No Known Allergies Allergy Verified 03/04/23 16:06 [facility] Disclaimer: The information contained in this section may have been updated after the patient was seen, as this information can be updated by other users. Medical History Anxiety Bilateral serous otitis media Depression Surgical History History of placement of ear tubes History of removal of ovarian cyst Social History Smoking Status: Never smoker alcohol intake: never substance use type: denies use current occupational status: unemployed Travel in the last 8 weeks: None ROS Obtained: Yes All systems reviewed & no additional complaints except as documented Physical Exam General General appearance: alert and in no apparent distress Head Head exam: atraumatic, normocephalic and normal inspection Eye Eye exam: Present normal appearance, PERRL and EOMI ENT ENT exam: Present normal exam, normal oropharynx, mucous membranes moist, TM's normal bilaterally and normal external ear exam Neck Neck exam: Present normal inspection, full ROM and trachea mid
--- NOTE | 2023-04-02 14:35 | PC.NURSE ---
PT TO US
[2023-04-02 14:44] LABS: Appearance,Urine CLEAR (Clear); Bilirubin,Urine Negative (Negative); Blood, Urine Negative (Negative); Color,Urine YELLOW (Yellow); Glucose,Urine (UA) Negative (Negative); Ketones,Urine Negative (Negative); Leukocyte Esterase,Urine Negative (Negative); Nitrate,Urine Negative (Negative); Protein,Urine Negative (Negative); Specific Gravity, Urine >= 1.030 (1.005-1.030); Urobilinogen,Urine 0.2 EU/dl (0.2)
[2023-04-02 14:47] LABS: Basophils % 0.4 % (0.1-2.0); Eosinophils # 0.5 K/mm3 (0.0-0.4); Eosinophils % 5.3 % (0.1-12.0); Hematocrit 45.7 % (37.0-47.0); Hemoglobin 14.9 g/dL (12.2-16.2); Lymphocytes # 2.5 K/mm3 (0.7-4.5); Lymphocytes % 26.9 % (10-50); Mean Corpuscular HGB Conc 32.6 g/dL (31.8-35.4); Mean Corpuscular Hemoglobin 28.4 pg (27.0-31.2); Mean Corpuscular Volume 87.3 fl (81-99); Mean Platelet Volume 7.5 fl (7.4-10.4); Monocytes # 0.5 K/mm3 (0.1-1.0); Neutrophils # 5.9 K/mm3 (1.8-7.8); Neutrophils % 62.4 % (37.0-80.0); Platelet Count 274 K/mm3 (142-424); Red Blood Count 5.24 M/mm3 (4.20-5.40); Red Cell Distribution Width 13.2 % (11.5-17.5); White Blood Count 9.5 K/mm3 (4.8-10.8)
[2023-04-02 14:53] LABS: Alanine Aminotransferase 20 U/L (12-78); Albumin Level 4.3 g/dl (3.5-5.0); Albumin/Globulin Ratio 1.4 (1.1-1.8); Alkaline Phosphatase 56 U/L (38-126); Anion Gap 12.8 mEq/L (5-15); Aspartate Amino Transferase 25 U/L (14-36); Bilirubin,Total 0.3 mg/dl (0.2-1.3); Blood Urea Nitrogen 11 mg/dl (7-17); Carbon Dioxide 27 mmol/L (22.0-30.0); Chloride 103 mmol/L (98-107); Creatinine Clearance Estimated 158 mL/min (50-200); Estimated Glomerular Filt Rate 95 ml/min (>60); GFR (African American) 115 ML/MIN (>60); Globulin 3.1 g/dL (1.3-3.2); Glucose 91 mg/dl (74-100); Potassium 3.8 mmoL/L (3.5-5.1); Sodium 139 mmol/L (136-145); Total Protein,Serum 7.4 g/dl (6.3-8.2)
[2023-04-02 14:57] LABS: Squamous Epithelial Cell,Urine Occasional #/hpf (0-5)
--- NOTE | 2023-04-02 15:04 | PC.NURSE ---
pt return from u/s
[2023-04-02 15:41] LABS: HCG,Quantitative 22507 mIU/ml (0-5.42)
--- NOTE | 2023-04-02 15:54 | PC.NURSE ---
contacted rad to check on status of u/s results, states scan is in locked states looks as though it is being read. notified YANELY GREENBERG
--- NOTE | 2023-04-02 15:59 | PC.NURSE ---
rounded on pt at this time. warm blanket provided
--- NOTE | 2023-04-02 16:04 | PC.NURSE ---
rounded on pt, visitor at BS, states no needs at this time, updated pt that radiology stated u/s is being read.
--- NOTE | 2023-04-02 16:30 | PC.NURSE ---
rad staff reports there is a preliminary report and they are sending it down to ER
--- NOTE | 2023-04-02 16:33 | PC.NURSE ---
preliminary report given to YANELY GREENBERG
--- NOTE | 2023-04-02 16:41 | PC.NURSE ---
at bs with ER while ER discussing test results with pt.
--- NOTE | 2023-04-02 16:43 | PC.NURSE ---
requested disc of images for pt to take to her [employer]
== END 2023-04-02 17:06 | disposition home or self-care (01) ==
PROVIDERS: Emergency Provider Emergency Medicine; PCP Physician Assistant
DX: O03.4 Incomplete spontaneous abortion without complication (principal)
CPT/HCPCS: 76817; 80053; 81001; 84702; 85025; 86900; 86901; 99284; 99285

== ENCOUNTER 2023-06-23 16:21 | Emergency (ER) | payer SELFPAY ==
[2023-06-23 16:55] VITALS: BP 144/87; PULSE 85; RESP 18; TEMP 36.6; O2SAT 98; BMI 35.5
[2023-06-23 17:21] VITALS: BP 144/87; PULSE 85; RESP 18; TEMP 36.6; O2SAT 98
--- NOTE | 2023-06-23 17:24 | EXP.UTC ---
Discharge Plan Disposition Patient Disposition: Home, Self-Care Condition: Good Prescriptions Prescriptions: New amoxicillin 875 mg tablet 875 mg PO BID Qty: 20 0RF methylprednisolone [Medrol ([place])] 4 mg tablets,dose pack See Rx Instructions .Route .COMPLEX 6 Days Qty: 21 0RF Rx Instructions: taper pack; cetirizine 10 mg tablet 10 mg PO DAILY Qty: 30 0RF fluticasone propionate [Flonase Allergy Relief] 50 mcg/actuation spray,suspension 1 - 2 spray intranasal DAILY Qty: 16 0RF Rx Instructions: administer into each nostril No Action potassium chloride 20 mEq tablet extended release 20 meq PO DAILY Qty: 7 0RF PNV,calcium 72-iron,carb-folic 29 mg iron- 1 mg tablet 1 tab PO DAILY Qty: 30 2RF promethazine 12.5 mg tablet 12.5 mg PO TID PRN (Reason: nausea and vomiting) Qty: 30 0RF sertraline 50 mg tablet 50 mg PO DAILY Qty: 90 0RF omeprazole 20 mg capsule,delayed release(DR/EC) 20 mg PO DAILY Qty: 90 3RF acyclovir 400 mg tablet 400 mg PO DAILY Qty: 90 0RF cetirizine 10 mg tablet 10 mg PO DAILY Qty: 90 0RF buspirone 10 mg tablet 10 mg PO DAILY fluticasone propionate [Flonase Allergy Relief] 50 mcg/actuation spray,suspension 1 spray intranasal DAILY Rx Instructions: administer into each nostril Referrals Follow up/Referrals: Chastity Bauman PA [Primary Care Provider] - See instructions Stephanie Caldwell APRN [Nurse Practitioner] - See instructions (call office for appointment) Activity Restrictions/Add. Instructions Additional Instructions/Restrictions: Take medication as prescribed Follow up with ENT for furhter evaluation and treatment Return if needed Straight to ER if any life threatening symptoms Follow up with your Family Doctor if no improvement or any worsening of symptoms Clinical Impressions Clinical Impression: Otitis media Qualifiers: Otitis media type: unspecified Laterality: right Qualified Code(s): H66.91 - Otitis media, unspecified, right ear Instructions Patient Instructions: Middle Ear Infection, DI for Vertigo Discharge ED Provider: Cristel Sams [facility] General Stated complaint: fluid in ears Mode of Arrival: Ambulatory Source of Information: Patient Limitations: No Limitations Time Seen by Provider: 06/23/23 17:25 Description of Symptoms (Recalled from Triage Doc. by RN): PATIENT C/O RIGHT EAR PAIN AND DIZZINESS X 2 DAYS HEENT Symptoms (Recalled from RN notes): Yes Resp Symptoms (Recalled from RN notes): No Skin Symptoms (Recalled from RN notes): No MS Symptoms (Recalled from RN notes): No Functional Status (Recalled from RN notes): WNL History of Present Illness Provider Complaint: Patient states that she has ear problems States that she has been having pain and fullness in her right ear that has got worse over the last couple of days and had dizziness on and off like she gets with them States that she has been taking her cetirizine and using her flonase but wasnt helping so she got some Sudafed and still not helped much Related Data Home Medications Medication Instructions Recorded Confirmed buspirone 10 mg tablet 10 mg PO DAILY Depression 01/22/23 05/29/23 fluticasone propionate 50 1 spray intranasal DAILY Allergy 06/23/23 06/23/23 mcg/actuation nasal Symptoms spray,suspension (Flonase Allergy Relief) Previous Rx's Medication Instructions Recorded potassium chloride 20 mEq 20 meq PO DAILY #7 tabs 03/05/23 tablet,extended release acyclovir 400 mg tablet 400 mg PO DAILY #90 tabs 05/24/23 omeprazole 20 mg capsule,delayed 20 mg PO DAILY #90 caps 05/24/23 release vitamins with calcium 1 tab PO DAILY #30 tabs 05/24/23 no.72-iron 29 mg-folic acid 1 mg tablet promethazine 12.5 mg tablet 12.5 mg PO TID PRN nausea and 05/24/23 vomiting #30 tabs sertraline 50 mg tablet 50 mg PO DAILY Depression #90 tabs 05/24/23 cetirizine 10 mg tablet 10 mg PO DAILY allergi
== END 2023-06-23 17:40 | disposition home or self-care (01) ==
PROVIDERS: Emergency Provider Nurse Practitioner; PCP Physician Assistant
DX: H66.91 Otitis media, unspecified, right ear (principal); F41.9 Anxiety disorder, unspecified; F32.A Depression, unspecified
CPT/HCPCS: 99212; 99214; G0463

== ENCOUNTER → 2023-09-10 14:01 | Outpatient (POV) | payer SELFPAY | PROVIDERS: Visit Provider Specialist/Technologist | DX: Z00.00 Encounter for general adult medical examination without abnormal findings (principal) ==

== ENCOUNTER → 2023-10-10 11:34 | Outpatient (CLI) | payer OTHER, SELFPAY ==
--- NOTE | 2023-10-10 11:34 | MR_ITS ---
FINAL REPORT CLINICAL HISTORY: Asymmetrical hearing loss. LOSS OF HEARING RIGHT EAR FINDINGS: Multiplanar MR imaging of the brain was performed without and with contrast, with attention to the posterior fossa, cerebellopontine angles and internal auditory canals. There is no evidence of intracranial hemorrhage or mass. The ventricular size is within normal limits. There is no evidence of shift of the midline structures. No area of abnormal restricted diffusion is identified. Normal major vessel vascular flow voids are seen. No abnormal contrast enhancement is identified within the brain. There is a retention cyst or polyp in the floor of the left maxillary sinus. No mass or abnormal contrast enhancement is seen within the cerebellopontine angles or internal auditory canals. No focal abnormality is identified of the temporal bones. IMPRESSION: No acute intracranial abnormality identified. No mass or abnormal contrast enhancement identified within the cerebellopontine angles or internal auditory canals. Reviewed, Interpreted and Dictated by Jerson Chamberlain III, MD Transcribed by Mee Fritz Authenticated and [facility]
== END ==
LOC: RAD 11:34
PROVIDERS: PCP Physician Assistant; Visit Provider Nurse Practitioner
DX: H91.8X3 Other specified hearing loss, bilateral (principal)
CPT/HCPCS: 70553; A9576

== ENCOUNTER 2024-09-22 14:15 | Outpatient (POV) | payer OTHER, SELFPAY | END 2024-09-22 23:59 | disposition home or self-care (01) | LOC: SC 09-23 06:59 | PROVIDERS: Visit Provider Dermatology | DX: Z00.00 Encounter for general adult medical examination without abnormal findings (principal) ==

== ENCOUNTER 2025-06-30 19:05 | Emergency (ER) | payer OTHER, SELFPAY ==
[2025-06-30 19:18] VITALS: BP 128/89; PULSE 77; RESP 18; TEMP 37.1; O2SAT 100; BMI 31.9
--- NOTE | 2025-06-30 19:23 | PC.NURSE ---
ice pack provided to patient
--- NOTE | 2025-06-30 19:34 | ED_ITS ---
<Statement entered by Mukul Tuttle DO - 07/01/25 09:06> I was consulted by the ANJELICA, and we discussed the complexity of problems being addressed. I approved the treatment and management plan for this patient's care in the emergency department, thus performing a substantive portion of the medical decision making. I did independently evaluate the patient and obtained history. I do agree with the history and assessment listed above. In summary, this patient had presented after falling off a horse. She was having significant pain in the knee. X-rays show concern for potential tibial plateau fracture so we did proceed with a CT scan of the knee. Prior to the read returning, I did personally interpret this image and felt that this was most consistent with a Schatzker type II tibial plateau fracture. I instructed the midlevel provider to discuss this case with orthopedics. She had an interactive discussion with Dr. Jara who felt that it was appropriate to place the patient in a knee immobilizer and have her nonweightbearing with crutches until follow-up in clinic tomorrow. Patient acknowledged understanding and importance. All questions were answered and all parties were agreeable with the decision of discharge home. Mukul Tuttle DO Discharge Plan Disposition Patient Disposition: Home, Self-Care Condition: Good Prescriptions Prescriptions: New hydrocodone-acetaminophen 5-325 mg tablet 1 tab PO Q8H PRN (Reason: pain) Qty: 12 0RF No Action promethazine 12.5 mg tablet 12.5 mg PO TID PRN (Reason: nausea and vomiting) Qty: 30 0RF sertraline 50 mg tablet 50 mg PO DAILY Qty: 90 0RF omeprazole 20 mg capsule,delayed release(DR/EC) 20 mg PO DAILY Qty: 90 3RF acyclovir 400 mg tablet 400 mg PO DAILY Qty: 90 0RF cetirizine 10 mg tablet 10 mg PO DAILY Qty: 90 0RF buspirone 10 mg tablet 10 mg PO DAILY Referrals Follow up/Referrals: Jamari Lee APRN [Primary Care Provider, Family Practice] - See instructions Alfredo Jara DO [Staff Physician, Orthopedics] - See instructions Activity Restrictions/Add. Instructions Additional Instructions/Restrictions: You were evaluated on an emergency basis. It is very important that you follow- up with your primary care provider and any specialist who we discussed within the next 2 days in order to better assess your health more comprehensively. For example, incidental findings on imaging or laboratory results that were performed today may be discovered, which do not require immediate medical care, but may impact your health in the future. If your symptoms worsen or persist, please return to the emergency department immediately for reassessment. Take all medications as prescribed. In queue for allowing me to participate in your health care, and I hope you feel better soon. Clinical Impressions Clinical Impression: Closed fracture of right tibial plateau Closed fracture of tibial plateau Qualifiers: Encounter type: initial encounter Laterality: right Qualified Code(s): S82.141A - Displaced bicondylar fracture of right tibia, initial encounter for closed fracture Instructions Patient Instructions: DI for Shinbone Fracture Print Language Print Language: [place] Discharge ED Provider: Mukul Tuttle Adult HPI General Chief complaint: PAIN Stated complaint: AO 06/30/25 1830 Injury Right knee Time Seen by Provider: 06/30/25 19:21 Mode of Arrival: Ambulatory Source of Information: Patient Description of Symptoms (Recalled from ER Triage Doc. by RN): patient presents to the ED for right knee pain. patient did fall off a horse at home. landed on her feet, no loss of consciousness, patient did not hit her head. Patient endorses her knee popped, and rotated inward. History of Present Illness HPI narrative: 40-year-old female presents emergency department complaints of right medial knee pain after falling off a horse prior to arrival. She denies hitting her head or loss of consciousness. She has not take any medication for pain prior to arrival. Related Data Home Medications ?Medication ?Instructions ?Recorded ?Confirmed buspirone 10 mg tablet 10 mg PO DAILY Depression 01/22/24 Previous Rx's ?Medication ?Instructions ?Recorded acyclovir 400 mg tablet 400 mg PO DAILY #90 tabs omeprazole 20 mg capsule,delayed 20 mg PO DAILY #90 ca ps 05/24/23 release promethazine 12.5 mg tablet 12.5 mg PO TID PRN nausea and 05/24/23 vomiting #30 tabs sertraline 50 mg tablet 50 mg PO DAILY Depression #9 0 tabs 05/24/23 cetirizine 10 mg tablet 10 mg PO DAILY allergies #90 tabs 05/31/23 hydrocodone 5 mg-acetaminophen 325 1 tab PO Q8H PRN pa in #12 tabs 06/30/25 mg tablet Allergies Allergy/AdvReac Type Severity Reaction Status Date / Time No Known Allergies Allergy Verified 01/22/24 14:05 [facility] Disclaimer: The information contained in this section may have been updated after the p vijay was seen, as this information can be updated by other users. Medical History (Updated 06/30/25 @ 21:57 by Constanza Bobby) Pulsatile tinnitus of right ear Monomeric tympanic membrane of right ear Asymmetrical hearing loss Right SNHL Eustachian tube obstruction Bilateral serous otitis media Depression Anxiety Surgical History History of placement of ear tubes History of removal of ovarian cyst Social History Smoking Status: Never smoker alcohol intake: never substance use type: denies use current occupational status: unemployed Travel in the last 8 weeks?: None Other Medical History Have you received the Pneumonia Vaccine: No ROS Obtained: Yes All systems reviewed & no additional complaints except as documented Musculoskeletal Musculoskeletal: Reports arthralgias Physical Exam Narrative Physical exam: General: Awake, aware, in no acute distress HEENT: Normocephalic, no evidence of trauma CV: RRR, no murmurs, rubs, or gallops Pulm: CTA bilaterally with no rhonchi, rales, wheezes ABD: Nontender, no swelling, guarding, or rebound tenderness Psych, appropriate mood and affect Musculoskeletal: Patient with 5 out of 5 strength in all extremities as well as 2+ pulses. Patient is intact. She reports pain that is predominantly on the medial aspect of her right knee. No obvious deformity noted patient with decreased range of motion. General General appearance: alert Respiratory Respiratory exam: Present normal lung sounds bilaterally Cardiovascular Cardiovascular exam: Present regular rate Neurological Exam Neurological exam: Present alert Medical Decision Making Medical Records Screening: Per USPSTF and CDC recommendations, given the prevalence of disease in our region, it is our hospital?s policy to screen for HIV and viral Hepatitis for all patients aged 18 and over and those with ongoing risk factors. Dmitriy Inquiry Pt receiving controlled substance: Yes Dmitriy was queried for this patient: Yes Risks and benefits of using a controlled substance: were discussed with pt by me Vital Signs: 06/30/25 19:18 06/30/25 22:12 Temperature 98.7 F 98.2 F Temperature Source Temporal Artery Scan Temporal Artery Scan Pulse Rate 74 Pulse Rate [Right Radial] 77 Respiratory Rate 18 18 Blood Pressure 118/76 Blood Pressure [Right Arm] 128/89 Blood Pressure Mean [Right Arm] 102 Blood Pressure Source Automatic Cuff Blood Pressure Source [Right Arm] Automatic Cuff Blood Pressure Position Sitting Blood Pressure Position [Right Arm] Sitting 02 Sat by Pulse Oximetry 100 Oxygen Delivery Method Room Air Room Air Orders (Tests/Meds): ED MEDICATIONS Discontinued Medications Generic Name Dose Route Start Last Admin Trade Name Bebeto PRN Reason Stop Dose Admin Hydrocodone Bitart/Acetaminophen 1 tab 06/30/25 19:39 06/30/25 19:44 Hydrocodone/Apap 5/325 Mg Tablet PO 06/30/25 19:40 1 tab ONCE ONE Administration Hydrocodone Bitart/Acetaminophen 1 tab 06/30/25 21:52 06/30/25 22:03 Hydrocodone/Apap 5/325 Mg Tablet PO 06/30/25 21:53 1 tab ONCE ONE Administration ORDERS Category Date Time Status CT knee RT wo con Stat Cat Scan 06/30/25 20:51 Completed Knee XR right 3 views [XR knee RT 3V] Stat Exams 06/30/25 19:39 Completed Medical Decision Narrative: Initial impression of presenting illness: 40-year-old female presents emergency department complaints of right knee pain after falling off her horse prior to arrival. Denies hitting her head or loss of consciousness. She complains of pain predominantly on the medial aspect of her right knee. She has not any medication for pain prior to arrival. Differential diagnosis includes but is not limited to: Fracture, dislocation, ligament injury, meniscus injury Patient arrives hemodynamically stable, afebrile, without respiratory distress with vital signs interpreted by myself. Initial physical exam reveals tenderness on palpation to the medial aspect of patient's right knee. With decreased range of motion due to pain. Patient is intact with 2+ pulses and 5 out of 5 strength in all extremities. Exam is unremarkable Initial diagnostic plan: [place] for pain, ice for swelling, x-ray Results from initial plan were reviewed and interpreted by myself, pertinent positives include: X-ray of right knee concerning for tibial plateau fracture and recommended CT for further evaluation. CT exam appear to have a tibial plateau fracture. Interventions in the ED: Patient was given [place] for pain control. She was also placed in a knee immobilizer with crutches. Patient was made aware of the results and the findings, upon reevaluation patient has remained stable throughout stay, symptoms remained stable. Upon reevaluation patient is resting in her room. She still reports pain to her knee. Sensations intact with 2+ pulses Consultation/discussion with other physicians: Spoke with orthopedic provider Dr. Jara regarding patient's CT findings. He recommended placing patient in a knee immobilizer with crutches and remaining nonweightbearing until following up with the clinic tomorrow. Disposition: Reviewed findings today's workup with patient and informed her that she does appear to have a tibial plateau fracture. Advised her that she needs to use the knee immobilizer at all times with crutches and remain nonweightbearing until cleared by orthopedics ducted her to contact their office tomorrow morning to schedule outpatient follow-up tomorrow. Advised her that we will also give her a prescription for [place] to help bridge her until she is followed up with orthopedics. Advised that this medication is narcotic based and can cause constipation as well as drowsiness. Advised her she may use ibuprofen with this medication but she should not use any additional Tylenol as they medicine already has Tylenol in it. Patient made aware of findings and had a detailed discussion with symptomatic care and return precautions, patient voiced understanding. Critical Care Critical Care Time Critical Care Time: No
--- OUTSIDE RECORDS SUMMARY | 2025-06-30 19:36 | XMS_ITS | Clinical Summary ---
Author Organization [facility] Address [address] [place] [address] Care Team Providers Care Security Field Supervisor Name Role Phone Unavailable Primary Care Provider Unavailabl e Social History Tobacco Use Types Packs/Day Years Used Date Smoking Tobacco: Never Assessed Comments Unknown Sex and Gender Information Value Date Recorded Sex Assigned at Not on file Legal Sex Female 8:34 PM EDT Gender Identity Not on file Sexual Orientation Not on file Plan of Treatment Health Maintenance Due Date Last Done Comments [facility]-Depression Screening 1987 [facility]-/Child/Adol SDOH Screenings 1987 [facility]-Varicella Vaccines (1 of 2 - 13+ 2-dose series) 2000 [facility]- SDOH Screenings 2005 [facility]-Adult SDOH Screenings 2005 [facility]-Hepatitis B Vaccines (1 of 3 - 19+ 3-dose series) 2006 [facility]-Pap Smear 2008 HPV Vaccines (1 - 3-dose SCDM series) 2014 [facility]-Cervical Cancer Screening 2017 [facility]-HPV/Cotest 2017 [id number] Vaccine (3 - 2023- season) 2024 08/02/2021, 06/26/2021 [facility]-Influenza Vaccine (#1) 2025 07/25/2021 [facility]-DTaP,Tdap,and Td Vaccines (2 - Td or Tdap) 05/19/2031 05/19/2021 [facility]-Zoster Vaccines (1 of 2) 2037 [facility]-HIB Vaccines Aged Out No longer e ligible based on patient's age to complete this topic [facility]-Hepatitis A Vaccines Aged Out No longer eligible based on patient's age to complete this topic [facility]-IPV Vaccines Aged Out No longer e ligible based on patient's age to complete this topic [facility]-Pneumococcal Vaccine: Pediatrics (0 to 5 Years) and At-Risk Patients (6 to 49 Years) Aged Out No longer eligible b ased on patient's age to complete this topic [facility]-Rotavirus Vaccines Aged Out No lo nger eligible based on patient's age to complete this topic Insurance [employer] [address]
--- OUTSIDE RECORDS SUMMARY | 2025-06-30 19:37 | XMS_ITS | Patient Health Record ---
Author Organization [facility] Address [address] [place] [address] Support Name Relationship Address Phone ARNULFO Macario Guarantor Unknown [phone] Reason For Referral No Information Medications Medication SIG (Take, Route, Frequency, Duration) Notes Start Date End Date Status Delsym *Please review a nd pick correct strength-formulation from Zentric options. If intended option is not shown, discontinue and re-order from Quick Search* Active Cefdinir 300 MG 1 cap(s) orally every 12 hours; Duration: 10 day(s) 12/18/2016 Active ZyrTEC Allergy 10 MG 1 tab(s) orally once a day 12/18/2016 Active Immunizations Vaccine Route Administration Date Status Comme nts PFIZER Covid 19 1st Dose (0.3ml) 12yr & up IM Intramuscular 06/26/2021 Administered PFIZER Covid 19 2nd Dose (0.3ml) 12yr & up IM Intramuscular 08/02/2021 Administered Plan Of Treatment No Information Insurance Providers Payer Name Payer Address Payer Phone Subscriber Number Group Number Insured Name Patient Relationship to Insured Coverage Start Date Coverage End Date [facility] [address] [place] [address] [id number] ARNULFO Macario Self - patient is the insured Medical (General) History Medical History History ICD Code depression poss . no confirmed test Surgical History Surgery Date(Month/Year) wisdom tooth extraction 2008
--- OUTSIDE RECORDS SUMMARY | 2025-06-30 19:37 | XMS_ITS | Patient Health Record ---
Author Organization [id number] [facility] Address [address] [place], [place] [id number] Support Name Relationship Address Phone Carli Painter Emergency Contact Unknown [phone] Mimi Vyas Guarantor Unknown [phone] Reason For Referral No Information Plan Of Treatment No Information Insurance Providers Payer Name Payer Address Payer Phone Subscriber Number Group Number Insured Name Patient Relationship to Insured Coverage Start Date Coverage End Date [employer] NON-HMO [address] [place], [place] [id number] Mimi Vyas Self - patient is the insured 8 8
--- NOTE | 2025-06-30 19:39 | XR_ITS ---
PROCEDURE INFORMATION: Exam: XR Right Knee Exam date and time: 06/30/2025 7:50 PM Age: 40 years old Clinical indication: Injury or trauma; Fall; Blunt trauma; Knee; Right; Additional info: Medial pain after falling off horse TECHNIQUE: Imaging protocol: Radiologic exam of the right knee. Views: 3 views. COMPARISON: No relevant prior studies available. FINDINGS: Bones/joints: There is a thin subtle 2.5 mm lucent line at the lateral base of the lateral tibial spine on the AP projection. No definite cortical disruption is appreciated. There is a transverse band of sclerosis within the lateral tibial condyle 1.4 cm below the tibial plateau. No other bony finding is identified. Good preservation of the knee joint. Soft tissues: No large knee joint effusion appreciated. No soft tissue swelling appreciated. IMPRESSION: Small lucent line at the cortical surface at the lateral base of the lateral tibial spine and very mild transverse sclerosis within the lateral tibial condyle approximately 1.4 cm below the knee joint. A nondisplaced lateral tibial plateau fracture is a definite consideration. A follow-up noncontrast CT or MRI of the right knee is recommended in further evaluation.
[2025-06-30] MEDS: HYDROCODONE/APAP 5/325 MG TABLET 1 TAB PO ×2 (19:44→22:03)
--- NOTE | 2025-06-30 20:51 | CT_ITS ---
PROCEDURE INFORMATION: Exam: CT Right Lower Extremity Without Contrast, Knee Exam date and time: 06/30/2025 9:13 PM Age: 40 years old Clinical indication: Pain; Knee; Right; Additional info: Tibial plateau fracture? TECHNIQUE: Imaging protocol: CT of the right lower extremity without contrast was performed. Exam focused on the knee. Radiation optimization: All CT scans at this facility use at least one of these dose optimization techniques: automated exposure control; mA and/or kV adjustment per patient size (includes targeted exams where dose is matched to clinical indication); or iterative reconstruction. COMPARISON: CR XR KNEE RT 3V 06/30/2025 7:50 PM FINDINGS: Bones/joints: There is a comminuted fracture involving the lateral tibial plateau/condyle. There is an anterior to posterior fracture line with a cortical step-off at the lateral tibial spine corresponding to the abnormality on the right knee series performed earlier same day. The more lateral aspect of the fracture is predominantly located within the posterior lateral tibial plateau and condyle with involvement of the posterior cortex. There is approximately 2-3 mm of depression of the posterior right lateral tibial plateau. No other acute bony abnormality of the right knee is identified. Soft tissues: There is a lipohemarthrosis noted within the patellofemoral compartment of the right knee. IMPRESSION: Comminuted fracture involving the right lateral tibial plateau/condyle that is most prominent posteriorly with approximately 2-3 mm of depression of the posterior tibial plateau. Associated lipohemarthrosis resulting in mild joint distension. COMMENT: THIS REPORT CONTAINS FINDINGS THAT MAY BE CRITICAL TO PATIENT CARE. The exam findings were verbally communicated by me to MAGNETOMETER OPERATOR Constanza Bobby via telephone conference at 9:58 PM EDT on 06/30/2025. The findings were acknowledged and understood.
--- NOTE | 2025-06-30 21:06 | PC.NURSE ---
patient to CT with radiology staff via wheelchair
--- NOTE | 2025-06-30 21:15 | PC.NURSE ---
patient back from CT. family as bedside, call light in reach.
--- NOTE | 2025-06-30 21:47 | PC.NURSE ---
provider at bedside updating patient
[2025-06-30 22:12] VITALS: BP 118/76; PULSE 74; RESP 18; TEMP 36.8; O2SAT 100
== END 2025-06-30 22:12 | disposition home or self-care (01) ==
PROVIDERS: Emergency Provider Student in an Organized Health Care Education/Training Program; PCP Nurse Practitioner Family
DX: S82.141A Displaced bicondylar fracture of right tibia, initial encounter for closed fracture (principal); V80.010A Animal-rider injured by fall from or being thrown from horse in noncollision accident, initial encounter
CPT/HCPCS: 73562; 73700; 99283; 99284

== ENCOUNTER 2025-07-01 14:01 | Outpatient (RCR) | payer OTHER, SELFPAY | END 2025-07-01 23:59 | disposition home or self-care (01) | LOC: PT 14:01 | PROVIDERS: Visit Provider Orthopaedic Surgery | DX: S82.141A Displaced bicondylar fracture of right tibia, initial encounter for closed fracture (principal) | CPT/HCPCS: 97760 ==

== ENCOUNTER 2025-07-14 19:41 | Outpatient (CLI) | payer OTHER, SELFPAY ==
--- NOTE | 2025-07-14 19:45 | XR_ITS ---
FINAL REPORT CLINICAL HISTORY: right knee fx FINDINGS: RIGHT KNEE Three views were obtained. There is a lateral tibial plateau fracture which does not appear significantly depressed on plain radiographs. Moderate joint effusion is identified. IMPRESSION: Lateral tibial plateau fracture. Reviewed, Interpreted and Dictated by Viola Sim MD Transcribed by Mee Fritz Authenticated and [facility]
--- OUTSIDE RECORDS SUMMARY | 2025-07-14 19:45 | XMS_ITS | Patient Health Record ---
Author Organization [id number] [facility] Address [address] [place], [place] [id number] Support Name Relationship Address Phone Carli Painter Emergency Contact Unknown [phone] Mimi Vyas Guarantor Unknown [phone] Reason For Referral No Information Plan Of Treatment No Information Insurance Providers Payer Name Payer Address Payer Phone Subscriber Number Group Number Insured Name Patient Relationship to Insured Coverage Start Date Coverage End Date [employer] NON-HMO [address] [place], [place] [id number] Mimi Vyas Self - patient is the insured 8 8
--- OUTSIDE RECORDS SUMMARY | 2025-07-14 19:45 | XMS_ITS | Patient Health Record ---
Author Organization [facility] Address [address] [place] [address] Support Name Relationship Address Phone ARNULFO Macario Guarantor Unknown [phone] Reason For Referral No Information Medications Medication SIG (Take, Route, Frequency, Duration) Notes Start Date End Date Status Delsym *Please review a nd pick correct strength-formulation from awe.sm options. If intended option is not shown, discontinue and re-order from Quick Search* Active Cefdinir 300 MG 1 cap(s) orally every 12 hours; Duration: 10 day(s) 12/18/2016 Active ZyrTEC Allergy 10 MG 1 tab(s) orally once a day 12/18/2016 Active Immunizations Vaccine Route Administration Date Status Comme nts PFIZER Covid 19 2nd Dose (0.3ml) 12yr & up IM Intramuscular 08/02/2021 Administered PFIZER Covid 19 1st Dose (0.3ml) 12yr & up IM Intramuscular 06/26/2021 Administered Plan Of Treatment No Information Insurance Providers Payer Name Payer Address Payer Phone Subscriber Number Group Number Insured Name Patient Relationship to Insured Coverage Start Date Coverage End Date [facility] [address] [place] [address] [id number] ARNULFO Macario Self - patient is the insured Medical (General) History Medical History History ICD Code depression poss . no confirmed test Surgical History Surgery Date(Month/Year) wisdom tooth extraction 2008
== END 2025-07-14 23:59 | disposition home or self-care (01) ==
LOC: RAD 19:43
PROVIDERS: PCP Family Medicine; Visit Provider Orthopaedic Surgery
DX: S82.141A Displaced bicondylar fracture of right tibia, initial encounter for closed fracture (principal)
CPT/HCPCS: 73562

== ENCOUNTER 2025-08-11 12:30 | Outpatient (CLI) | payer OTHER, SELFPAY ==
--- NOTE | 2025-08-11 12:32 | XR_ITS ---
FINAL REPORT CLINICAL HISTORY: right knee pain COMPARISON: 07/14/2025 FINDINGS: AP, lateral and oblique views of the right knee were obtained. There is no acute osseous abnormality of the right knee. There is minimal lateral subluxation of the patella without dislocation. The joint space is preserved. The soft tissues are normal. There is no joint effusion. IMPRESSION: No acute osseous abnormality of the right knee. Minimal lateral patellar subluxation. Reviewed, Interpreted and Dictated by Viola Sim MD Transcribed by Tiki Edmonds Authenticated and [facility]
== END 2025-08-11 23:59 | disposition home or self-care (01) ==
LOC: RAD 12:31
PROVIDERS: Visit Provider Orthopaedic Surgery
DX: S83.011A Lateral subluxation of right patella, initial encounter (principal); X58.XXXA Exposure to other specified factors, initial encounter
CPT/HCPCS: 73562

== ENCOUNTER 2025-08-12 13:05 | Outpatient (CLI) | payer OTHER, SELFPAY | END 2025-08-12 23:59 | disposition home or self-care (01) | LOC: LAB 13:06 | DX: N91.2 Amenorrhea, unspecified (principal) | CPT/HCPCS: 36415; 84144; 84702 ==

== ENCOUNTER 2025-08-14 14:56 | Outpatient (CLI) | payer OTHER, SELFPAY ==
--- OUTSIDE RECORDS SUMMARY | 2025-08-14 15:00 | XMS_ITS | Patient Health Record ---
Author Organization [id number] [facility] Address [address] [place], [place] [id number] Support Name Relationship Address Phone Carli Painter Emergency Contact Unknown Mimi Vyas Guarantor Unknown [phone] Reason For Referral No Information Plan Of Treatment No Information Insurance Providers Payer Name Payer Address Payer Phone Subscriber Number Group Number Insured Name Patient Relationship to Insured Coverage Start Date Coverage End Date [employer] PPO [address] [place], [place] [id number] Mimi Vyas Self - patient is the insured 8 8
--- OUTSIDE RECORDS SUMMARY | 2025-08-14 15:00 | XMS_ITS | Referral Summary ---
Author Organization [employer] ([place], [place], [place], [place]) Address [address] [place] [address] Care Team Providers Care Orthotic And Prosthetic Technician Name Role Phone Unavailable Primary Care Provider Unavailabl e Allergies No known active allergies Social History Tobacco Use Types Packs/Day Years Used Date Smoking Tobacco: Never Assessed Food Insecurity Answer Date Recorded Food run out past 12 months Not on file 03/04 Food did not last past 12 months Not on file 03/13/2024 Employment Answer Date Recorded Help finding and keeping a job Not on file 0 03/13/2024 Family and Community Support Answer Jonas e Recorded Help with Day to Day Activities Not on file 03/13/2024 Feeling Lonely or Isolated Not on file 03/13 Educational Attainment Answer Date Luis rded Speak language other than Georgian at home Not on file 03/13/2024 Want help with school or training Not on file 03/13/2024 Substance Use Answer Date Recorded Used prescription meds for non-medical reasons N ot on file 03/13/2024 Used illegal drugs past 12 months Not on file 03/13/2024 Comments Unknown Sex and Gender Information Value Date Recorded Sex Assigned at Not on file Legal Sex Female 7:29 PM CDT Gender Identity Not on file Sexual Orientation Not on file Plan of Treatment Not on file
--- OUTSIDE RECORDS SUMMARY | 2025-08-14 15:00 | XMS_ITS | Clinical Summary ---
Author Organization [employer] ([place], [place], [place], [place]) Address [address] [place] [address] Care Team Providers Care Welder Metal Fab Name Role Phone Unavailable Primary Care Provider [...] Date Luis rded Speak language other than Uruguayan at home Not on file 03/13/2024 Want [...] Health Maintenance Due Date Last Done Comments Depression Screening (12+) 1999 Tobacco Cessation Counseling and Screening (12+) 1999 HIV Screening 2002 Hepatitis C Screening 2005 Pap Smear 2008 COVID-19 VACCINE (3 - 2024-2 6 season) 2025 08/02/2021, 06/26/2021 Influenza Vaccine (#1) 2025 DTAP/TDAP/TD VACCINES (2 - T d or Tdap) 05/19/2031 05/19/2021 Pneumococcal Vaccine: 0-49 Years Aged Out No longer eligible b ased on patient's age to complete this topic
--- OUTSIDE RECORDS SUMMARY | 2025-08-14 15:01 | XMS_ITS | Data Portability ---
Author Organization [facility] Address [address] [place] [address] Assessment No assessment recorded. Plan of Treatment Reminders Order Date Submit Date Provider Last Modified By Organization Details Last Modified Time Details Appointments None recorded. Lab HIV 1 + 2, meaningful use set 2024 025 [email or web address], [address] [place], [address], 5 15:08:06 Hepatitis C IgG Ab, qual, serum 2024 025 [facility] [address] [facility], [place], [address], 5 15:08:04 lipid panel, serum or plasma 2024 025 [facility], [address] [place], [address], 5 15:08:02 rapid flu (A+B) [address], [address] [facility], [place], [address], 5 11:01:32 rapid SARS CoV 2 Ag, QL, IA, upper respiratory specimen [address], [address] [place], [address], 5 11:01:30 CBC w/ auto diff 2024 025 [facility] ([place]), [address] [place], [address], 5 15:08:00 CMP, serum or plasma 2024 025 [facility] ([place]), [address] [place], [address], 5 15:08:01 dhea-sulfat e, serum 2024 025 [facility] ([place]), [address] [place], [address], 5 15:08:05 insulin, serum 2024 025 [facility] ([place]), [address] [place], [address], 5 15:08:06 TSH, serum, reflex free T4 [email or web address] [place] [address] ([place]), [address] [place], [address], 5 08:53:50 testosteron e, free + total, serum 2024 025 [facility] ([place]), [address] [place], [address], 5 15:08:03 prolactin, serum 2024 025 [facility] ([place]), [address] [place], [address], 5 15:08:05 cobalamin and folate panel, serum 2024 025 [facility]), [address] [place], [address], 15:08:03 Referral None recorded. Procedures None recorded. Surgeries None recorded. Imaging None recorded. Medication Orders acyclovir 400 mg tablet 2024 [facility], [address] [place] [address], [address], [place], [address], 11:46:52 Zepbound 2.5 mg/0.5 mL subcutaneou s pen injector 2024 [facility], [address] [place] [address], [facility] [address], [place], [address], 11:46:54 Patient TargetsNo targets recorded. Patient Instructions Encounter Date Encounter Id Patient Instructions Last Modified By Organization Details Last Modified Time 12/21/2024 [id number] cough: care instructions [email or web address] Not available 12/21/2024 11:01:29 12/30/2024 [id number] body mass index: care instructions Not available 12/30/2024 11:38:16 learning about healthy weight Not available 12/30/2024 11:38:16 Reason for Referral None Reported. Results Created Date Observation Date Name Description Value Unit Range Abnormal Flag Note LastModifiedBy Organization Detail LastModifiedTime 12/21/1912/22/2024 CBC WITH DIFFE RENTI AL/PL ATELE T WBC 4.0 x10e3 /uL 3.4-10 .8 normal Not Available [facility] ([facility]) [address] [place], [address], 12/28/2024 15:08:00 12/21/19 25 12/22/2024 CBC WITH DIFFE RENTI AL/PL ATELE T RBC 5.42 x10e6 /uL 3.77-5 .28 above high normal Not Available [facility] ([facility]) [address] [place], [address], 12/28/2024 15:08:00 12/21/19 25 12/22/2024 CBC WITH DIFFE RENTI AL/PL ATELE T hemoglobin 15.4 g/dL 11.1-1 5.9 normal Not Available [facility] ([facility]) [address] [place], [address], 12/28/2024 15:08:00 12/21/19 25 12/22/2024 CBC WITH DIFFE RENTI AL/PL ATELE T hematocrit 48.4 % 34.0-4 6.6 above high normal Not Available [facility] ([facility]) [address] [place], [address], 12/28/2024 15:08:00 12/21/19 25 12/22/2024 CBC WITH DIFFE RENTI AL/PL ATELE T MCV 89 fL 79-97 normal Not Available [facility] ([facility]) [address] [place], [address], 12/28/2024 15:08:00 12/21/19 25 12/22/2024 CBC WITH DIFFE RENTI AL/PL ATELE T MCH 28.4 pg 26.6-3 3.0 normal Not Available [facility] ([facility]) [address] [place], [address], 12/28/2024 15:08:00 12/21/19 25 12/22/2024 CBC WITH DIFFE RENTI AL/PL ATELE T MCHC 31.8 g/dL 31.5-3 5.7 normal Not Available [facility] ([facility]) [address] [place], [address], 12/28/2024 15:08:00 12/21/19 25 12/22/2024 CBC WITH DIFFE RENTI AL/PL ATELE T RDW 11.9 % 11.7-1 5.4 Not Available [facility] ([facility]) [address] [place], [address], 12/28/2024 15:08:00 12/21/19 25 12/22/2024 CBC WITH DIFFE RENTI AL/PL ATELE T platelets 219 x10e3 /uL 150-45 0 normal Not Available [facility] ([facility]) [address] [facility], [place], [address], 12/28/2024 15:08:00 12/21/19 25 12/22/2024 CBC WITH DIFFE RENTI AL/PL ATELE T neutrophils 47 % not estab. normal Not Available [facility] ([facility]) [address] [facility], [place], [address], 12/28/2024 15:08:00 12/21/19 25 12/22/2024 CBC WITH DIFFE RENTI AL/PL ATELE T lymphs 35 % not estab. normal Not Available [facility] ([facility]) [address] [facility], [place], [address], 12/28/2024 15:08:00 12/21/19 25 12/22/2024 CBC WITH DIFFE RENTI AL/PL ATELE T monocytes 13 % not estab. normal Not Available [facility] ([facility]) [address] [facility], [place], [address], 12/28/2024 15:08:00 12/21/19 25 12/22/2024 CBC WITH DIFFE RENTI AL/PL ATELE T eos 5 % not estab. normal Not Available [facility] ([facility]) [address] [facility], [place], [address], 12/28/2024 15:08:00 12/21/19 25 12/22/2024 CBC WITH DIFFE RENTI AL/PL ATELE T basos 0 % not estab. normal Not Available [facility] ([facility]) [address] [facility], [place], [address], 12/28/2024 15:08:00 12/21/19 25 12/22/2024 CBC WITH DIFFE RENTI AL/PL ATELE T immature cells AQUATIC PERFORMER Not Available [facility] ([facility]) [address] [place], [address], 12/28/2024 15:08:00 12/21/19 25 12/22/2024 CBC WITH DIFFE RENTI AL/PL ATELE T neutrophils (absolute) 1.9 x10e3 /uL 1.4-7. 0 normal Not Available [facility] ([facility]) [address] [place], [address], 12/28/2024 15:08:00 12/21/19 25 12/22/2024 CBC WITH DIFFE RENTI AL/PL ATELE T lymphs (absolute) 1.4 x10e3 /uL 0.7-3. 1 normal Not Available [facility] ([facility]) [address] [place], [address], 12/28/2024 15:08:00 12/21/19 25 12/22/2024 CBC WITH DIFFE RENTI AL/PL ATELE T monocytes(ab solute) 0.5 x10e3 /uL 0.1-0. 9 normal Not Available [facility] ([facility]) [address] [place], [address], 12/28/2024 15:08:00 12/21/19 25 12/22/2024 CBC WITH DIFFE RENTI AL/PL ATELE T eos (absolute) 0.2 x10e3 /uL 0.0-0. 4 normal Not Available [facility] ([facility]) [address] [place], [address], 12/28/2024 15:08:00 12/21/19 25 12/22/2024 CBC WITH DIFFE RENTI AL/PL ATELE T baso (absolute) 0.0 x10e3 /uL 0.0-0. 2 normal Not Available [facility] ([facility]) [address] [place], [address], 12/28/2024 15:08:00 12/21/19 25 12/22/2024 CBC WITH DIFFE RENTI AL/PL ATELE T immature granulocytes 0 % not estab. Not Available [facility] ([facility]) [address] [facility], [place], [address], 12/28/2024 15:08:00 12/21/19 25 12/22/2024 CBC WITH DIFFE RENTI AL/PL ATELE T immature grans (abs) 0.0 x10e3 /uL 0.0-0. 1 Not Available [facility] ([facility]) [address] [facility], [place], [address], 12/28/2024 15:08:00 12/21/19 25 12/22/2024 CBC WITH DIFFE RENTI AL/PL ATELE T NRBC AQUATIC PERFORMER Not Available [facility] ([facility]) [address] [facility], [place], [address], 12/28/2024 15:08:00 12/21/19 25 12/22/2024 CBC WITH DIFFE RENTI AL/PL ATELE T hematology comments: AQUATIC PERFORMER Not Available [facility] ([facility]) [address] [facility], [place], [address], 12/28/2024 15:08:00 12/21/19 25 12/22/2024 COMP. METAB OLIC PANEL (14) glucose 89 mg/dL 70-99 normal Not Available [facility] ([facility]) [address] [facility], [place], [address], 12/28/2024 15:08:13 12/21/19 25 12/22/2024 COMP. METAB OLIC PANEL (14) BUN 12 mg/dL 6-20 normal Not Available [facility] ([facility]) [address] [facility], [place], [address], 12/28/2024 15:08:13 12/21/19 25 12/22/2024 COMP. METAB OLIC PANEL (14) creatinine 0.77 mg/dL 0.57-1 .00 normal Not Available [facility] ([facility]) [address] [facility], [place], [address], 12/28/2024 15:08:13 12/21/19 25 12/22/2024 COMP. METAB OLIC PANEL (14) eGFR 102 mL/mi n/1.7 3 >59 normal Not Available [facility] ([facility]) [address] [facility], [place], [address], 12/28/2024 15:08:13 12/21/19 25 12/22/2024 COMP. METAB OLIC PANEL (14) BUN/creatini ne ratio 16 9-23 normal Not Available [facility] ([facility]) [address] [facility], [place], [address], 12/28/2024 15:08:13 12/21/19 25 12/22/2024 COMP. METAB OLIC PANEL (14) sodium 140 mmol/ L 134-14 4 normal Not Available [facility] ([facility]) [address] [facility], [place], [address], 12/28/2024 15:08:13 12/21/19 25 12/22/2024 COMP. METAB OLIC PANEL (14) potassium 3.5 mmol/ L 3.5-5. 2 normal Not Available [facility] ([facility]) [address] [facility], [place], [address], 12/28/2024 15:08:13 12/21/19 25 12/22/2024 COMP. METAB OLIC PANEL (14) chloride 104 mmol/ L 96-106 normal Not Available [facility] ([facility]) [address] [facility], [place], [address], 12/28/2024 15:08:13 12/21/19 25 12/22/2024 COMP. METAB OLIC PANEL (14) carbon dioxide, total 21 mmol/ L 20-29 normal Not Available [facility] ([facility]) [address] [facility], [place], [address], 12/28/2024 15:08:13 12/21/19 25 12/22/2024 COMP. METAB OLIC PANEL (14) calcium 9.0 mg/dL 8.7-10 .2 normal Not Available [facility] ([facility]) [address] [place], [address], 12/28/2024 15:08:13 12/21/19 25 12/22/2024 COMP. METAB OLIC PANEL (14) protein, total 7.3 g/dL 6.0-8. 5 normal Not Available [facility] ([facility]) [address] [place], [address], 12/28/2024 15:08:13 12/21/19 25 12/22/2024 COMP. METAB OLIC PANEL (14) albumin 4.4 g/dL 3.9-4. 9 normal Not Available [facility] ([facility]) [address] [place], [address], 12/28/2024 15:08:13 12/21/19 25 12/22/2024 COMP. METAB OLIC PANEL (14) globulin, total 2.9 g/dL 1.5-4. 5 Not Available [facility] ([facility]) [address] [place], [address], 12/28/2024 15:08:13 12/21/19 25 12/22/2024 COMP. METAB OLIC PANEL (14) bilirubin, total 0.2 mg/dL 0.0-1. 2 normal Not Available [facility] ([facility]) [address] [place], [address], 12/28/2024 15:08:13 12/21/19 25 12/22/2024 COMP. METAB OLIC PANEL (14) alkaline phosphatase 64 IU/L 44-121 normal Not Available [facility] ([facility]) [address] [place], [address], 12/28/2024 15:08:13 12/21/19 25 12/22/2024 COMP. METAB OLIC PANEL (14) AST (SGOT) 16 IU/L 0-40 normal Not Available [facility] ([facility]) [address] [place], [address], 12/28/2024 15:08:13 12/21/19 25 12/22/2024 COMP. METAB OLIC PANEL (14) ALT (SGPT) 14 IU/L 0-32 normal Not Available [facility] ([facility]) [address] [place], [address], 12/28/2024 15:08:13 12/21/19 25 12/22/2024 LIPID PANEL WITH LDL/H DL RATIO cholesterol, total 175 mg/dL 100-19 9 normal Not Available [facility] ([facility]) [address] [place], [address], 12/28/2024 15:08:14 12/21/19 25 12/22/2024 LIPID PANEL WITH LDL/H DL RATIO triglyceride s 93 mg/dL 0-149 normal Not Available [facility] ([facility]) [address] [place], [address], 12/28/2024 15:08:14 12/21/19 25 12/22/2024 LIPID PANEL WITH LDL/H DL RATIO HDL cholesterol 51 mg/dL >39 normal Not Available [facility] ([facility]) [address] [place], [address], 12/28/2024 15:08:14 12/21/19 25 12/22/2024 LIPID PANEL WITH LDL/H DL RATIO VLDL cholesterol syed 17 mg/dL 5-40 Not Available [facility] ([facility]) [address] [place], [address], 12/28/2024 15:08:14 12/21/19 25 12/22/2024 LIPID PANEL WITH LDL/H DL RATIO LDL chol calc ([facility]) 107 mg/dL 0-99 above high normal Not Available [facility] ([facility]) [address] [facility], [place], [address], 12/28/2024 15:08:14 12/21/19 25 12/22/2024 LIPID PANEL WITH LDL/H DL RATIO LDL calc comment: AQUATIC PERFORMER Not Available [facility] ([facility]) [address] [facility], [place], [address], 12/28/2024 15:08:14 12/21/19 25 12/22/2024 LIPID PANEL WITH LDL/H DL RATIO LDL/HDL ratio 2.1 ratio 0.0-3. 2 LDL/H DL Ratio Men Women 1/2 Avg.R isk 1.0 1.5 Avg.R isk 3.6 3.2 2X Avg.R isk 6.2 5.0 3X Avg.R isk 8.0 6.1 Not Available [facility] ([facility]) [address] [place], [address], 12/28/2024 15:08:14 12/21/19 25 12/22/2024 VITAM IN B12 AND FOLAT E vitamin B12 489 pg/mL 232-12 45 normal Not Available [facility] ([facility]) [address] [facility], [place], [address], 12/28/2024 15:08:16 12/21/19 25 12/22/2024 VITAM IN B12 AND FOLAT E folate (folic acid), serum 19.4 NG/mL >3.0 normal A serum folat e fernando ntrat ion of less than 3.1 ng/mL is consi dered to repre sent clini syed defic iency . Not Available [facility] ([facility]) [address] [facility], [place], [address], 12/28/2024 15:08:16 12/21/19 25 12/26/2024 TESTO STERO NE, FREE+ TOTAL LC/MS free testosterone (direct) 0.4 pg/mL 0.0-4. 2 Not Available [facility] ([facility]) [address] [facility], [place], [address], 12/28/2024 15:08:16 12/21/19 25 12/28/2024 TESTO STERO NE, FREE+ TOTAL LC/MS testosterone , total, lc/MS 16.8 NG/dL 10.0-5 5.0 Not Available [facility] ([facility]) [address] [facility], [place], [address], 12/28/2024 15:08:16 12/21/19 25 12/22/2024 HCV ANTIB LUDMILA CASCA DE(PC R/GEN O) HCV Ab Non Reacti ve non reacti ve Not Available [facility] ([facility]) [address] [facility], [place], [address], 12/28/2024 15:08:04 12/21/19 25 12/22/2024 HCV ANTIB LUDMILA CASCA DE(PC R/GEN O) interpretati on: Commen t Not infec suha with HCV unles s early or acute infec tion is suspe cted (whic h may be delay ed in an immun ocomp romis ed indiv idual ), or other evide nce exist s to indic ate HCV infec tion. Not Available [facility] ([facility]) [address] [facility], [place], [address], 12/28/2024 15:08:04 12/21/1912/28/2024 DHEA- SULFA TE, SERUM DHEA-sulfate , lcms 124 ug/dL This test was devel oped and its perfo rmanc e leandro cteri stics deter mined by [facility]. It has not been clear ed or appro shan by the Food and Drug Admin istra tion. Refer ence Range : Adult Femal es (31 - 40y): 17 - 286 Not Available [facility] [address] [place] [address], [place], [address], 12/28/2024 15:08:15 12/21/19 25 12/22/2024 PROLA CTIN prolactin 6.1 NG/mL 4.8-33 .4 normal Not Available [facility] ([facility]) [address] [place], [address], 12/28/2024 15:08:18 12/21/19 25 12/22/2024 HIV AB/P2 4 AG WITH REFLE X HIV Ab/P24 Ag screen Non Reacti ve non reacti ve HIV-1 /HIV- 2 antib odies and HIV-1 p24 antig en were NOT detec suha. There is no labor atory evide nce of HIV infec tion. HIV Negat fay Not Available [facility] ([facility]) [address] [place], [address], 12/28/2024 15:08:06 12/21/19 25 12/22/2024 INSUL IN insulin 6.6 uIU/m L 2.6-24 .9 normal Not Available [facility] ([facility]) [address] [place], [address], 12/28/2024 15:08:20 12/21/19 25 12/22/2024 TSH+F REE T4 TSH 1.160 uIU/m L 0.450- 4.500 normal Not Available [facility] ([facility]) [address] [place], [address], 12/28/2024 15:08:13 12/21/19 25 12/22/2024 TSH+F REE T4 T4,free(dire ct) 1.13 NG/dL 0.82-1 .77 normal Not Available [facility] ([facility]) [address] [place], [address], 12/28/2024 15:08:13 12/21/19 25 12/21/2024 rapid SARS CoV 2 Ag, QL, IA, upper respi rator y speci men SARS CoV Ag negati ve Not Available [facility] [address] [facility], [place], [address], 12/21/2024 11:01:11 12/21/19 25 12/21/2024 rapid flu (A+B) Flu A negati ve Not Available [facility] [address] [facility], [place], [address], 12/21/2024 11:00:28 12/21/19 25 12/21/2024 rapid flu (A+B) Flu B negati ve Not Available [facility] [address] [facility], [place], [address], 12/21/2024 11:00:28 Result Notes None recorded. Problems Name Problem SNOMED Code Status Onset Date Resolution Date Notes Provider Name and Address Organization Details Recorded Time Irregular periods 37044175 Active 025 Tiki Nye NP [address] [place] [address], [address], [employer] 5 10:58:34 Vitamin D deficiency 84297120 Active 025 Tiki Nye NP [address] [place] [address], [address] 8, [employer] 5 10:59:46 Fatigue 70676554 Active 025 Tiki Nye NP [address] [place] [address], [address] 8, [employer] 5 10:59:50 Cough 77115027 Active 025 Tiki Nye NP [address] [place] [address], [address] 8, [employer] 5 11:00:54 Herpes simplex 64253643 Active 025 Tiki Nye NP [address] [place] [address], [address], [employer] 5 11:32:53 Problem Notes None recorded. Procedures Surgical History Date Name Laterality Status Provider Name and Address Organization Details Recorded Time 06/18/20 24 Date of Last Pap Smear completed [employer] 12/30/2024 11:14:51 Appendectomy completed [employer] 12/21/2024 09:54:40 excision of melanoma completed [employer] 12/21/2024 09:54:56 Ear Tube completed [email or web address] [facility] [employer] 12/21/2024 09:55:20 Imaging Results None recorded. Procedure Notes None recorded. Medical Equipment None Reported. Allergies No known drug allergies Medications Name Sig Start Date Stop Date Status Note LastModified by Organization Details LastModified Time metformin 500 mg tablet Take 1 tablet twice a day by oral route. active Not Available Not Available No t Available Zyrtec 10 mg tablet Take 1 tablet every day by oral route. active Not Available Not Available No t Available acyclovir 400 mg tablet Take 2 tablets twice a day by oral route for 5 days. active Not Available Not Available No t Available omeprazole 20 mg capsule,fabrizio yed release active Not Available Not Available Not Available Vitamin C active Not Available Not Mariana ilable Not Available biotin active Not Available Not Availa ble Not Available Pregnitude 200 mcg-2,000 mg oral powder packet Take by oral route. active Not Available Not Available Not Available Flonase Allergy Relief 1 puff in each nare daily active Not Available Not Available No t Available Wegov[employer] 0.25 mg/0.5 mL subcutaneous pen injector Inject 0.5 mL every week by subcutaneou s route for 30 days. 2024 active Not Available Not Available Not Avai lable Zepbound 2.5 mg/0.5 mL subcutaneous pen injector Inject 0.5 mL every week by subcutaneou s route for 30 days. 2024 active Not Available Not Available Not Avai lable Vitals Date Recorded Body weight Body mass index (BMI) Body height Body temperature Heart rate Oxygen saturation Oxygen saturation in Arterial blood by Pulse oximetry Systolic And Diastolic Provider Name and Address Organization Details Last Updated DateTime 5 00356.8 3 g 34.4 kg/m2 165.1 cm 98.1 [degF] 98 /min 98 % 98 % 116/74 mm[Hg] [employer]. 09:59:23 Date Recorded Body height Body mass index (BMI) Body weight Body temperature Heart rate Oxygen saturation Oxygen saturation in Arterial blood by Pulse oximetry Systolic And Diastolic Provider Name and Address Organization Details Last Updated DateTime 165.1 cm 34.6 kg/m2 52534.2 1 g 97.6 [degF] 75 /min 98 % 98 % 128/80 mm[Hg] [employer]. 11:16:22 Social History Question Answer Notes LastModified by Organizat ion Details LastModified Time Tobacco Smoking Status Never Smoker [employer]. 12/21/2024 09:52:42 Do You Have An Advance Directive? No [email or web address] Information not available 12/30/2024 Is Your Home Air Conditioned? Yes [email or web address] Information not available 12/30/2024 If You Are , What Was Your Level Of Alcohol Consumption Prior To ? None Information not available 12/30/2024 Do You Wear A Helmet When Biking? No Information not available 12/30/2024 Are You Blind Or Do You Have Difficulty Seeing? No [email or web address] Information not available 12/30/2024 What Is Your Level Of Caffeine Consumption? Moderate [email or web address] Information not available 12/30/2024 What Type Of Color Shop Helper Do You Use? Relative Information not available 12/30/2024 Are You Deaf Or Do You Have Serious Difficulty Hearing? No [email or web address] Information not available 12/30/2024 What Type Of Diet Are You Following? REGULAR [email or web address] Information not available 12/30/2024 Who Is Your Employer? [employer] [email or web address] Information not available 12/30/2024 How Many Days Of Moderate To Strenuous Exercise, Like A Brisk Walk, Did You Do In The Last 7 Days? 2 Information not available 12/30/2024 Have There Been Any Changes To Your Family Or Social Situation? No [email or web address] Information no t available 12/30/2024 Are There Any Guns Present In Your Home? No Information not available 12/30/2024 Which Of Your Hands Is Dominant? Right [email or web address] Information not available 12/30/2024 What Is Your Home Situation? Other [email or web address] Information not available 12/30/2024 Do You Have A Medical Power Of Corporate Wellness Coordinator? No Information not available 12/30/2024 What Was The Date Of Your Most Recent Tobacco Screening? 12/30/2024 [email or web address] Information not available 12/30/2024 Are There Any Occupational Health Risks Where You Work? No [email or web address] Information not available 12/30/2024 Do You Have Any Pets? Yes [email or web address] Information not available 12/30/2024 Do You Use Protection During Sex? No [email or web address] Information not available 12/30/2024 What Is Your Relationship Status? Information not available 12/21/2024 Have You Repeated Any Grades? No Information not available 12/30/2024 Do You Use Your Seat Belt Or Car Seat Routinely? Yes Information not available 12/30/2024 Are You Sexually Active? Yes [email or web address] Information not available 12/21/2024 Do You Have Any Siblings? 2 [email or web address] Information not available 12/30/2024 Do You Have Smoke And Carbon Monoxide Detectors In Your Home? Yes [email or web address] Information not available 12/30/2024 Are You Passively Exposed To Smoke? No [email or web address] Information no t available 12/30/2024 Are There Any Smokers In Your House? No [email or web address] Information not available 12/30/2024 How Much Tobacco Do You Smoke? No [email or web address] Information not available 12/21/2024 What Types Of Sporting Activities Do You Participate In? None At This Time [email or web address] Information not available 12/30/2024 Do You Use Sunscreen Routinely? Yes [email or web address] Information not available 12/30/2024 Has Tobacco Cessation Counseling Been Provided? Yes Information not available 12/21/2024 On What Date Was Tobacco Cessation Counseling Provided? 12/30/2024 [email or web address] Information not available 12/30/2024 How Many Years Have You Smoked Tobacco? 0 Information not available 12/21/2024 Do You Have Difficulty Walking Or Climbing Stairs? No [email or web address] Information not available 12/30/2024 Sex: Female Functional Status Question Answer Note LastModified by Organizat ion Details LastModified Time Do you use any illicit or recreational drugs? No Information not available 12/21/2024 What is your level of alcohol consumption? None [email or web address] Information not available 12/21/2024 Are you currently employed? Yes [email or web address] Information not available 12/30/2024 Are you able to walk independently without assistance or assistive devices? [email or web address] Information not available 12/30/2024 Do you have difficulty doing errands alone? No [email or web address] Information not available 12/30/2024 Are you able to care for yourself independently? Yes [email or web address] Information not available 12/30/2024 Do you have difficulty dressing, bathing, grooming, or toileting? No [email or web address] Information not available 12/30/2024 What is your exercise level? Occasional [email or web address] Information not available 12/30/2024 Mental Status Question Answer Note LastModified by Organization D etails LastModified Time Do you have difficulty concentrating, remembering or making decisions? No [email or web address] Information no t available 12/30/2024 Are you or have you been involved with bullying? No [email or web address] Information not available 12/30/2024 Family History Relationship Description Onset Age of this Age Resolved Age Notes LastModified by Organization Details LastModified Time Paternal Grandmother Arthritis Not available 11:14:51 Paternal Grandmother Hypertensive disorder [email or web address] Not available 2024 11:14:51 Medical History Condition Response Allergies (Food, seasonal, environmental ) Y Other Y Obesity Y Gynecological History Statement/Question Response Abnormal Pap N Flow Moderate Date of LMP 12/02/2024 Frequency of Cycle (Q days) 25-28 Menses Monthly Y HPV Vaccine Y Duration of Flow (days) 4-5 Date of Last Pap Smear 06/18/2024 Age at Menarche 14 LMP Approximate Obstetrics History GPAL:G 0 P 0 0 0 0 Past Encounters Encounter ID Performer Location Encounter Start Date Encounter Closed Date Diagnosis/Indication Diagnosis SNOMED-CT Code Diagnosis ICD10 Code Diagnosis IMO Codes Diagnosis Note [id number] Tiki Nye NP [facility] [address] [place] [address] 12/21/2024 09:38:07 12/21/2024 11:18:58 Adult health examination 653713363 Z00.00 Irregular periods 969675 07 N92.6 Hyperlipid emia screening 950056401 Z13.220 Vitamin D deficiency 347 41189 E55.9 Fatigue 21014847 R53.83 Viral screening 10721829 4 Z11.59 Cough 71290629 R05.9 [id number] Tiki Nye NP [facility] [address] [place] [address] 12/30/2024 10:54:47 12/30/2024 11:37:15 Body mass index 30+ - obesity 696344583 Z68.30 STOP metformin Herpes simplex 81673385 B00.9 Health Concerns Section Related Observation LastModified by Organization Detai ls LastModified Time None Recorded Concern Status LastModified by Organization Details LastModified Time None Recorded Advance Directives Directive N: Payers Insurance Date Sequence Insurance Name Policy Number Policy Prabhakar Covered Member ID Prabhakar Member ID Guarantor Name 06/18/2025 1 [place] PREFERRED PRIMARY (HMO) [id number] Mimi Macario [id number] Mimi Macario Notes Date Note Type Note Provider Name and Address Organization Details Recorded Time 12/21/2024 text/html ROS as noted in the HPI Patient patient presented to clinic today to establish care. Patient also reports that she had vomiting and diarrhea yesterday. Patient also complains of intermittent productive cough with greenish sputum. Patient denies any fever or any other symptoms at this time. Patient does state that she is interested in weight loss. Patient states that she sees Dr. Cruz in [place] for fertility. Patient states that she has tried IVF several times without success. Patient states that the last time that she was able to lose weight that she did get however miscarried. Patient states that she has been trying to watch her diet and exercise, but has not had significant results. Patient does report irregular menses. Patient states that she is currently taking metformin. Patient states that her fertility specialist did order her pregnitude but has not started taking it yet. Patient has no further complaints or concerns today. Tiki Nye NP [address] [place], [address], [employer] 12/21/2024 12:51:38 12/30/2024 text/html ROS as noted in the HPI Patient presented to clinic today to f/u on labwork and discuss weight loss. Patient states that she has tried several different things to lose weight patient states that she exercises routinely and eats healthy and organic. Patient states that she did try to tirzepatide in the past but states that she did not continue taking it because the office that she went to was too far away. Patient states that she has been taking metformin to try to lose weight. Patient states that her goal is to be able to lose weight and be able to become . Patient states that she has had little to no success with metformin. Patient also complaining today of fever blister and states that she would like to have a refill of acyclovir. Patient has no additional complaints or concerns for today's visit. Tiki Nye NP [address] [place], [address], [employer] 12/30/2024 12:26:41 OBGyn Episode No OBEpisode recorded.
--- OUTSIDE RECORDS SUMMARY | 2025-08-14 15:01 | XMS_ITS | Patient Health Record ---
Author Organization [facility] Address [address] [place] [address] Support Name Relationship Address Phone ARNULFO Macario Guarantor Unknown [phone] Reason For Referral No Information Medications Medication SIG (Take, Route, Frequency, Duration) Notes Start Date End Date Status Delsym *Please review a nd pick correct strength-formulation from [employer] options. If intended option is not shown, [...] Insured Coverage Start Date Coverage End Date [facility] [address] [place] [address] [id number] ARNULFO Macario Self - patient is the insured Medical (General) History Medical History History ICD Code depression poss . no confirmed test Surgical History Surgery Date(Month/Year) wisdom tooth extraction 2008
== END 2025-08-14 23:59 | disposition home or self-care (01) ==
LOC: LAB 14:58
PROVIDERS: PCP Obstetrics & Gynecology
DX: N91.2 Amenorrhea, unspecified (principal)
CPT/HCPCS: 36415; 84702

== ENCOUNTER 2025-08-16 14:52 | Outpatient (CLI) | payer OTHER, SELFPAY ==
--- OUTSIDE RECORDS SUMMARY | 2025-08-16 14:54 | XMS_ITS | Referral Summary ---
Author Organization [email or web address] ([place], [place], [place], [place]) Address [address] [place] [address] Care Team Providers Care Technical Sme Name Role Phone Unavailable Primary Care Provider [...] Date Luis rded Speak language other than [place]inean at home Not on file 03/13/2024 Want [...]
--- OUTSIDE RECORDS SUMMARY | 2025-08-16 14:55 | XMS_ITS | Clinical Summary ---
Author Organization [employer] ([place], [place], [place], [place]) Address [address] [place] [address] Care Team Providers Care Intraoperative Neuro Tech Name Role Phone Unavailable Primary Care Provider [...] Date Luis rded Speak language other than Cypriot at home Not on file 03/13/2024 Want [...]
--- OUTSIDE RECORDS SUMMARY | 2025-08-16 14:55 | XMS_ITS | Patient Health Record ---
Author Organization [id number] [facility] Address [address] [place], [place] [id number] Support Name Relationship Address Phone Carli Painter Emergency Contact Unknown Mimi Vyas Guarantor Unknown [phone] Reason For Referral No Information Plan Of Treatment No Information Insurance Providers Payer Name Payer Address Payer Phone Subscriber Number Group Number Insured Name Patient Relationship to Insured Coverage Start Date Coverage End Date [employer] PPO [address] [place], [place] [id number] Mimi Vyas Self - patient is the insured 8 [phone]
--- OUTSIDE RECORDS SUMMARY | 2025-08-16 14:55 | XMS_ITS | Patient Health Record ---
Author Organization [facility] Address [address] [place] [address] Support Name Relationship Address Phone ARNULFO Macario Guarantor Unknown [phone] Reason For Referral No Information Medications Medication SIG (Take, Route, Frequency, Duration) Notes Start Date End Date Status Delsym *Please review a nd pick correct strength-formulation from [employer] options. If intended option is not shown, [...] Insured Coverage Start Date Coverage End Date [facility] [address] [place] [address] [id number] ARNULFO Macario Self - patient is the insured Medical (General) History Medical History History ICD Code depression poss . no confirmed test Surgical History Surgery Date(Month/Year) wisdom tooth extraction 2008
== END 2025-08-16 23:59 | disposition home or self-care (01) ==
LOC: LAB 14:53
PROVIDERS: Visit Provider Obstetrics & Gynecology Reproductive Endocrinology
DX: Z32.00 Encounter for pregnancy test, result unknown (principal)
CPT/HCPCS: 36415; 84702

== ENCOUNTER 2025-08-18 11:03 | Outpatient (CLI) | payer OTHER, SELFPAY ==
--- OUTSIDE RECORDS SUMMARY | 2025-08-18 11:07 | XMS_ITS | Patient Health Record ---
Author Organization [id number] [facility] Address [address] [place], [place] [phone] Support Name Relationship Address Phone Carli Painter Emergency Contact Unknown [phone] Mimi Vyas Guarantor Unknown [phone] Reason For Referral No Information Plan Of Treatment No Information Insurance Providers Payer Name Payer Address Payer Phone Subscriber Number Group Number Insured Name Patient Relationship to Insured Coverage Start Date Coverage End Date [employer] PPO [address] [place], [place] [id number] Mimi Vyas Self - patient is the insured 8 8
--- OUTSIDE RECORDS SUMMARY | 2025-08-18 11:07 | XMS_ITS | Clinical Summary ---
Author Organization [employer] ([place], [place], [place], [place]) Address [address] [place] [address] Care Team Providers Care Package Clerk Name Role Phone Unavailable Primary Care Provider [...] Date Luis rded Speak language other than Dutch at home Not on file 03/13/2024 Want [...]
--- OUTSIDE RECORDS SUMMARY | 2025-08-18 11:07 | XMS_ITS | Referral Summary ---
Author Organization [employer] ([place], [place], [place], [place]) Address [address] [place] [address] Care Team Providers Care Desolderer Name Role Phone Unavailable Primary Care Provider [...] Date Luis rded Speak language other than Burundian at home Not on file 03/13/2024 Want [...]
--- OUTSIDE RECORDS SUMMARY | 2025-08-18 11:08 | XMS_ITS | Patient Health Record ---
Author Organization [facility] Address [address] [place] [address] Support Name Relationship Address Phone ARNULFO Macario Guarantor Unknown [phone] Reason For Referral No Information Medications Medication SIG (Take, Route, Frequency, Duration) Notes Start Date End Date Status Delsym *Please review a nd pick correct strength-formulation from [employer] options. If intended option is not shown, [...] Insured Coverage Start Date Coverage End Date [facility] [address] [place] [address] [id number] ARNULFO Macario Self - patient is the insured Medical (General) History Medical History History ICD Code depression poss . no confirmed test Surgical History Surgery Date(Month/Year) wisdom tooth extraction 2008
--- OUTSIDE RECORDS SUMMARY | 2025-08-18 11:08 | XMS_ITS | Data Portability ---
Author Organization [employer] [facility] Address [address] [place] [address] Assessment No assessment recorded. Plan of Treatment Reminders Order Date Submit Date Provider Last Modified By Organization Details Last Modified Time Details Appointments None recorded. Lab HIV 1 + 2, meaningful use set 2024 025 [facility]IR [facility] [place] [address] [place], [address], 5 15:08:06 Hepatitis C IgG Ab, qual, serum 2024 025 [facility]UPAHOEHOE [facility] [address] [facility], [place], [address], 5 15:08:04 lipid panel, serum or plasma 2024 025 [facility], [address] [place], [address], 5 15:08:02 rapid flu (A+B) [address], [address] [facility], [place], [address], 5 11:01:32 rapid SARS CoV 2 Ag, QL, IA, upper respiratory specimen [address], [address] [place], [address], 5 11:01:30 CBC w/ auto diff 2024 025 [facility] ([place]), [address] [place], [address], 5 15:08:00 CMP, serum or plasma 2024 025 [facility] ([place]), [address] [place], [address], 5 15:08:01 dhea-sulfat e, serum 2024 025 [facility] ([place]), [address] [place], [address], 5 15:08:05 insulin, serum 2024 025 [facility] ([place]), [address] [place], [address], 5 15:08:06 TSH, serum, reflex free T4 [email or web address] [place] [address] ([place]), [address] [place], [address], 5 08:53:50 testosteron e, free + total, serum 2024 025 [facility] ([place]), [address] [place], [address], 5 15:08:03 prolactin, serum 2024 025 [facility] ([place]), [address] [place], [address], 5 15:08:05 cobalamin and folate panel, serum 2024 025 [facility]), [address] [place], [address], 15:08:03 Referral None recorded. Procedures None recorded. Surgeries None recorded. Imaging None recorded. Medication Orders acyclovir 400 mg tablet 2024 [facility], [address] [place] [address], [address], [place], [address], 11:46:52 Zepbound 2.5 mg/0.5 mL subcutaneou s pen injector 2024 [facility], [address] [place] [address], [facility], [place], [address], 11:46:54 Patient TargetsNo targets recorded. Patient Instructions Encounter Date Encounter Id Patient Instructions Last Modified By Organization Details Last Modified Time 12/21/2024 [id number] cough: care instructions [email or web address] Not available 12/21/2024 11:01:29 12/30/2024 [id number] body mass index: care instructions Not available 12/30/2024 11:38:16 learning about healthy weight Not available 12/30/2024 11:38:16 Reason for Referral None Reported. Results Created Date Observation Date Name Description Value Unit Range Abnormal Flag Note LastModifiedBy Organization Detail LastModifiedTime 12/21/1912/22/2024 CBC WITH DIFFE RENTI AL/PL ATELE T WBC 4.0 x10e3 /uL 3.4-10 .8 normal Not Available [facility] ([facility]) [address] [place], [address], 12/28/2024 15:08:00 12/21/19 25 12/22/2024 CBC WITH DIFFE RENTI AL/PL ATELE T RBC 5.42 x10e6 /uL 3.77-5 .28 above high normal Not Available [facility] ([facility]) [address] [place], [address], 12/28/2024 15:08:00 12/21/19 25 12/22/2024 CBC WITH DIFFE RENTI AL/PL ATELE T hemoglobin 15.4 g/dL 11.1-1 5.9 normal Not Available [facility] ([facility]) [address] [place], [address], 12/28/2024 15:08:00 12/21/19 25 12/22/2024 CBC WITH DIFFE RENTI AL/PL ATELE T hematocrit 48.4 % 34.0-4 6.6 above high normal Not Available [facility] ([facility]) [address] [place], [address], 12/28/2024 15:08:00 12/21/19 25 12/22/2024 CBC WITH DIFFE RENTI AL/PL ATELE T MCV 89 fL 79-97 normal Not Available [facility] ([facility]) [address] [place], [address], 12/28/2024 15:08:00 12/21/19 25 12/22/2024 CBC WITH DIFFE RENTI AL/PL ATELE T MCH 28.4 pg 26.6-3 3.0 normal Not Available [facility] ([facility]) [address] [place], [address], 12/28/2024 15:08:00 12/21/19 25 12/22/2024 CBC WITH DIFFE RENTI AL/PL ATELE T MCHC 31.8 g/dL 31.5-3 5.7 normal Not Available [facility] ([facility]) [address] [place], [address], 12/28/2024 15:08:00 12/21/19 25 12/22/2024 CBC WITH DIFFE RENTI AL/PL ATELE T RDW 11.9 % 11.7-1 5.4 Not Available [facility] ([facility]) [address] [place], [address], 12/28/2024 15:08:00 12/21/19 25 12/22/2024 CBC WITH DIFFE RENTI AL/PL ATELE T platelets 219 x10e3 /uL 150-45 0 normal Not Available [facility] ([facility]) [address] [facility], [place], [address], 12/28/2024 15:08:00 12/21/19 25 12/22/2024 CBC WITH DIFFE RENTI AL/PL ATELE T neutrophils 47 % not estab. normal Not Available [facility] ([facility]) [address] [facility], [place], [address], 12/28/2024 15:08:00 12/21/19 25 12/22/2024 CBC WITH DIFFE RENTI AL/PL ATELE T lymphs 35 % not estab. normal Not Available [facility] ([facility]) [address] [facility], [place], [address], 12/28/2024 15:08:00 12/21/19 25 12/22/2024 CBC WITH DIFFE RENTI AL/PL ATELE T monocytes 13 % not estab. normal Not Available [facility] ([facility]) [address] [facility], [place], [address], 12/28/2024 15:08:00 12/21/19 25 12/22/2024 CBC WITH DIFFE RENTI AL/PL ATELE T eos 5 % not estab. normal Not Available [facility] ([facility]) [address] [facility], [place], [address], 12/28/2024 15:08:00 12/21/19 25 12/22/2024 CBC WITH DIFFE RENTI AL/PL ATELE T basos 0 % not estab. normal Not Available [facility] ([facility]) [address] [facility], [place], [address], 12/28/2024 15:08:00 12/21/19 25 12/22/2024 CBC WITH DIFFE RENTI AL/PL ATELE T immature cells FAMILY AND CONSUMER EDUCATION TEACHER Not Available [facility] ([facility]) [address] [place], [address], 12/28/2024 15:08:00 12/21/19 25 12/22/2024 CBC WITH DIFFE RENTI AL/PL ATELE T neutrophils (absolute) 1.9 x10e3 /uL 1.4-7. 0 normal Not Available [facility] ([facility]) [address] [place], [address], 12/28/2024 15:08:00 12/21/19 25 12/22/2024 CBC WITH DIFFE RENTI AL/PL ATELE T lymphs (absolute) 1.4 x10e3 /uL 0.7-3. 1 normal Not Available [facility] ([facility]) [address] [place], [address], 12/28/2024 15:08:00 12/21/19 25 12/22/2024 CBC WITH DIFFE RENTI AL/PL ATELE T monocytes(ab solute) 0.5 x10e3 /uL 0.1-0. 9 normal Not Available [facility] ([facility]) [address] [place], [address], 12/28/2024 15:08:00 12/21/19 25 12/22/2024 CBC WITH DIFFE RENTI AL/PL ATELE T eos (absolute) 0.2 x10e3 /uL 0.0-0. 4 normal Not Available [facility] ([facility]) [address] [place], [address], 12/28/2024 15:08:00 12/21/19 25 12/22/2024 CBC WITH DIFFE RENTI AL/PL ATELE T baso (absolute) 0.0 x10e3 /uL 0.0-0. 2 normal Not Available [facility] ([facility]) [address] [place], [address], 12/28/2024 15:08:00 12/21/19 25 12/22/2024 CBC WITH DIFFE RENTI AL/PL ATELE T immature granulocytes 0 % not estab. Not Available [facility] ([facility]) [address] [facility], [place], [address], 12/28/2024 15:08:00 12/21/19 25 12/22/2024 CBC WITH DIFFE RENTI AL/PL ATELE T immature grans (abs) 0.0 x10e3 /uL 0.0-0. 1 Not Available [facility] ([facility]) [address] [facility], [place], [address], 12/28/2024 15:08:00 12/21/19 25 12/22/2024 CBC WITH DIFFE RENTI AL/PL ATELE T NRBC FAMILY AND CONSUMER EDUCATION TEACHER Not Available [facility] ([facility]) [address] [facility], [place], [address], 12/28/2024 15:08:00 12/21/19 25 12/22/2024 CBC WITH DIFFE RENTI AL/PL ATELE T hematology comments: FAMILY AND CONSUMER EDUCATION TEACHER Not Available [facility] ([facility]) [address] [facility], [place], [address], 12/28/2024 15:08:00 12/21/19 25 12/22/2024 COMP. METAB OLIC PANEL (14) glucose 89 mg/dL 70-99 normal Not Available [facility] ([facility]) [address] [facility], [place], [address], 12/28/2024 15:08:13 12/21/19 25 12/22/2024 COMP. METAB OLIC PANEL (14) BUN 12 mg/dL 6-20 normal Not Available [facility] ([facility]) [address] [facility], [place], [address], 12/28/2024 15:08:13 12/21/19 25 12/22/2024 COMP. METAB OLIC PANEL (14) creatinine 0.77 mg/dL 0.57-1 .00 normal Not Available [facility] ([facility]) [address] [facility], [place], [address], 12/28/2024 15:08:13 12/21/19 25 12/22/2024 COMP. METAB OLIC PANEL (14) eGFR 102 mL/mi n/1.7 3 >59 normal Not Available [facility] ([facility]) [address] [facility], [place], [address], 12/28/2024 15:08:13 12/21/19 25 12/22/2024 COMP. METAB OLIC PANEL (14) BUN/creatini ne ratio 16 9-23 normal Not Available [facility] ([facility]) [address] [facility], [place], [address], 12/28/2024 15:08:13 12/21/19 25 12/22/2024 COMP. METAB OLIC PANEL (14) sodium 140 mmol/ L 134-14 4 normal Not Available [facility] ([facility]) [address] [facility], [place], [address], 12/28/2024 15:08:13 12/21/19 25 12/22/2024 COMP. METAB OLIC PANEL (14) potassium 3.5 mmol/ L 3.5-5. 2 normal Not Available [facility] ([facility]) [address] [facility], [place], [address], 12/28/2024 15:08:13 12/21/19 25 12/22/2024 COMP. METAB OLIC PANEL (14) chloride 104 mmol/ L 96-106 normal Not Available [facility] ([facility]) [address] [facility], [place], [address], 12/28/2024 15:08:13 12/21/19 25 12/22/2024 COMP. METAB OLIC PANEL (14) carbon dioxide, total 21 mmol/ L 20-29 normal Not Available [facility] ([facility]) [address] [facility], [place], [address], 12/28/2024 15:08:13 12/21/19 25 12/22/2024 COMP. METAB OLIC PANEL (14) calcium 9.0 mg/dL 8.7-10 .2 normal Not Available [facility] ([facility]) [address] [place], [address], 12/28/2024 15:08:13 12/21/19 25 12/22/2024 COMP. METAB OLIC PANEL (14) protein, total 7.3 g/dL 6.0-8. 5 normal Not Available [facility] ([facility]) [address] [place], [address], 12/28/2024 15:08:13 12/21/19 25 12/22/2024 COMP. METAB OLIC PANEL (14) albumin 4.4 g/dL 3.9-4. 9 normal Not Available [facility] ([facility]) [address] [place], [address], 12/28/2024 15:08:13 12/21/19 25 12/22/2024 COMP. METAB OLIC PANEL (14) globulin, total 2.9 g/dL 1.5-4. 5 Not Available [facility] ([facility]) [address] [place], [address], 12/28/2024 15:08:13 12/21/19 25 12/22/2024 COMP. METAB OLIC PANEL (14) bilirubin, total 0.2 mg/dL 0.0-1. 2 normal Not Available [facility] ([facility]) [address] [place], [address], 12/28/2024 15:08:13 12/21/19 25 12/22/2024 COMP. METAB OLIC PANEL (14) alkaline phosphatase 64 IU/L 44-121 normal Not Available [facility] ([facility]) [address] [place], [address], 12/28/2024 15:08:13 12/21/19 25 12/22/2024 COMP. METAB OLIC PANEL (14) AST (SGOT) 16 IU/L 0-40 normal Not Available [facility] ([facility]) [address] [place], [address], 12/28/2024 15:08:13 12/21/19 25 12/22/2024 COMP. METAB OLIC PANEL (14) ALT (SGPT) 14 IU/L 0-32 normal Not Available [facility] ([facility]) [address] [place], [address], 12/28/2024 15:08:13 12/21/19 25 12/22/2024 LIPID PANEL WITH LDL/H DL RATIO cholesterol, total 175 mg/dL 100-19 9 normal Not Available [facility] ([facility]) [address] [place], [address], 12/28/2024 15:08:14 12/21/19 25 12/22/2024 LIPID PANEL WITH LDL/H DL RATIO triglyceride s 93 mg/dL 0-149 normal Not Available [facility] ([facility]) [address] [place], [address], 12/28/2024 15:08:14 12/21/19 25 12/22/2024 LIPID PANEL WITH LDL/H DL RATIO HDL cholesterol 51 mg/dL >39 normal Not Available [facility] ([facility]) [address] [place], [address], 12/28/2024 15:08:14 12/21/19 25 12/22/2024 LIPID PANEL WITH LDL/H DL RATIO VLDL cholesterol syed 17 mg/dL 5-40 Not Available [facility] ([facility]) [address] [place], [address], 12/28/2024 15:08:14 12/21/19 25 12/22/2024 LIPID PANEL WITH LDL/H DL RATIO LDL chol calc (rust) 107 mg/dL 0-99 above high normal Not Available [facility] ([facility]) [address] [facility], [place], [address], 12/28/2024 15:08:14 12/21/19 25 12/22/2024 LIPID PANEL WITH LDL/H DL RATIO LDL calc comment: FAMILY AND CONSUMER EDUCATION TEACHER Not Available [facility] ([facility]) [address] [facility], [place], [address], 12/28/2024 15:08:14 12/21/19 25 12/22/2024 LIPID PANEL WITH LDL/H DL RATIO LDL/HDL ratio 2.1 ratio 0.0-3. 2 LDL/H DL Ratio Men Women 1/2 Avg.R isk 1.0 1.5 Avg.R isk 3.6 3.2 2X Avg.R isk 6.2 5.0 3X Avg.R isk 8.0 6.1 Not Available [facility] ([facility]) [address] [place], [address], 12/28/2024 15:08:14 12/21/19 25 12/22/2024 VITAM IN B12 AND FOLAT E vitamin B12 489 pg/mL 232-12 45 normal Not Available [facility] ([facility]) [address] [facility], [place], [address], 12/28/2024 15:08:16 12/21/19 25 12/22/2024 VITAM IN B12 AND FOLAT E folate (folic acid), serum 19.4 NG/mL >3.0 normal A serum folat e fernando ntrat ion of less than 3.1 ng/mL is consi dered to repre sent clini syed defic iency . Not Available [facility] ([facility]) [address] [facility], [place], [address], 12/28/2024 15:08:16 12/21/19 25 12/26/2024 TESTO STERO NE, FREE+ TOTAL LC/MS free testosterone (direct) 0.4 pg/mL 0.0-4. 2 Not Available [facility] ([facility]) [address] [facility], [place], [address], 12/28/2024 15:08:16 12/21/19 25 12/28/2024 TESTO STERO NE, FREE+ TOTAL LC/MS testosterone , total, lc/MS 16.8 NG/dL 10.0-5 5.0 Not Available [facility] ([facility]) [address] [facility], [place], [address], 12/28/2024 15:08:16 12/21/19 25 12/22/2024 HCV ANTIB LUDMILA CASCA DE(PC R/GEN O) HCV Ab Non Reacti ve non reacti ve Not Available [facility] ([facility]) [address] [facility], [place], [address], 12/28/2024 15:08:04 12/21/19 25 12/22/2024 HCV ANTIB LUDMILA CASCA DE(PC R/GEN O) interpretati on: Commen t Not infec suha with HCV unles s early or acute infec tion is suspe cted (whic h may be delay ed in an immun ocomp romis ed indiv idual ), or other evide nce exist s to indic ate HCV infec tion. Not Available [facility] ([facility]) [address] [facility], [place], [address], 12/28/2024 15:08:04 12/21/1912/28/2024 DHEA- SULFA TE, SERUM [...] - 286 Not Available [facility] [address] [place] [address], [place], [address], 12/28/2024 15:08:15 12/21/19 25 12/22/2024 PROLA CTIN prolactin 6.1 NG/mL 4.8-33 .4 normal Not Available [facility] ([facility]) [address] [place], [address], 12/28/2024 15:08:18 12/21/19 25 12/22/2024 HIV AB/P2 4 AG WITH REFLE X HIV Ab/P24 Ag screen Non Reacti ve non reacti ve HIV-1 /HIV- 2 antib odies and HIV-1 p24 antig en were NOT detec suha. There is no labor atory evide nce of HIV infec tion. HIV Negat fay Not Available [facility] ([facility]) [address] [place], [address], 12/28/2024 15:08:06 12/21/19 25 12/22/2024 INSUL IN insulin 6.6 uIU/m L 2.6-24 .9 normal Not Available [facility] ([facility]) [address] [place], [address], 12/28/2024 15:08:20 12/21/19 25 12/22/2024 TSH+F REE T4 TSH 1.160 uIU/m L 0.450- 4.500 normal Not Available [facility] ([facility]) [address] [place], [address], 12/28/2024 15:08:13 12/21/19 25 12/22/2024 TSH+F REE T4 T4,free(dire ct) 1.13 NG/dL 0.82-1 .77 normal Not Available [facility] ([facility]) [address] [place], [address], 12/28/2024 15:08:13 12/21/19 25 12/21/2024 rapid SARS CoV 2 Ag, QL, IA, upper respi rator y speci men SARS CoV Ag negati ve Not Available [facility] [address] [facility], [place], [address], 12/21/2024 11:01:11 12/21/19 25 12/21/2024 rapid flu (A+B) Flu A negati ve Not Available [facility] [address] [facility], [place], [address], 12/21/2024 11:00:28 12/21/19 25 12/21/2024 rapid flu (A+B) Flu B negati ve Not Available [facility] [address] [facility], [place], [address], 12/21/2024 11:00:28 Result Notes None recorded. Problems Name Problem SNOMED Code Status Onset Date Resolution Date Notes Provider Name and Address Organization Details Recorded Time Irregular periods 72982904 Active 025 Tiki Nye NP [address] [place] [address], [address], [employer] 5 10:58:34 Vitamin D deficiency 77750616 Active 025 Tiki Nye NP [address] [place] [address], [address] 8, [employer] 5 10:59:46 Fatigue 75804223 Active 025 Tiki Nye NP [address] [place] [address], [address] 8, [employer] 5 10:59:50 Cough 44747202 Active 025 Tiki Nye NP [address] [place] [address], [address] 8, [employer] 5 11:00:54 Herpes simplex 70067918 Active 025 SUMMER LEONE NP [address] [place] [address], [address] 8, [employer] 5 10:14:08 Problem Notes None recorded. Procedures Surgical History Date Name Laterality Status Provider Name and Address Organization Details Recorded Time 06/18/20 24 Date of Last Pap Smear completed [employer] 12/30/2024 11:14:51 Appendectomy completed [employer] 12/21/2024 09:54:40 excision of melanoma completed [employer] 12/21/2024 09:54:56 Ear Tube completed [facility] [facility]. 12/21/2024 09:55:20 Imaging Results None recorded. Procedure [...] day by oral route for 5 days. 2024 active Not Available Not Available Not Avai lable omeprazole 20 mg capsule,fabrizio yed release active [...] and Address Organization Details Last Updated DateTime 76991.8 3 g 34.4 kg/m2 165.1 cm 98.1 [degF] 98 /min 98 % 98 % 116/74 mm[Hg] [employer] 5 09:59:23 Date Recorded Body height Body mass index (BMI) Body weight Body temperature Heart rate Oxygen saturation Oxygen saturation in Arterial blood by Pulse oximetry Systolic And Diastolic Provider Name and Address Organization Details Last Updated DateTime 5 165.1 cm 34.6 kg/m2 52415.2 1 g 97.6 [degF] 75 /min 98 % 98 % 128/80 mm[Hg] [employer]. 5 11:16:22 Social History Question Answer Notes LastModified by Organizat ion Details LastModified Time Tobacco Smoking Status Never Smoker [employer]. 12/21/2024 09:52:42 Do You Have An Advance Directive? No [email or web address] Information not available 12/30/2024 Is Your Home Air Conditioned? Yes Information not available 12/30/2024 If You Are , What Was Your Level Of Alcohol Consumption Prior To ? None [email or web address] Information not available 12/30/2024 Do You Wear A Helmet When Biking? No [email or web address] Information not available 12/30/2024 Are You Blind Or Do You Have Difficulty Seeing? No [email or web address] Information not available 12/30/2024 What Is Your Level Of Caffeine Consumption? Moderate [email or web address] Information not available 12/30/2024 What Type Of Wire Walker Do You Use? Relative [email or web address] Information not available 12/30/2024 Are You Deaf Or Do You Have Serious Difficulty Hearing? No [email or web address] Information not available 12/30/2024 What Type Of Diet Are You Following? REGULAR [email or web address] Information not available 12/30/2024 Who Is Your Employer? [employer] [email or web address] Information not available 12/30/2024 How Many Days Of Moderate To Strenuous Exercise, Like A Brisk Walk, Did You Do In The Last 7 Days? 2 [email or web address] Information not available 12/30/2024 Have There Been Any Changes To Your Family Or Social Situation? No [email or web address] Information no t available 12/30/2024 Are There Any Guns Present In Your Home? No [email or web address] Information not available 12/30/2024 Which Of Your Hands Is Dominant? Right [email or web address] Information not available 12/30/2024 What Is Your Home Situation? Other [email or web address] Information not available 12/30/2024 Do You Have A Medical Power Of Etl Software Engineer? No [email or web address] Information not available 12/30/2024 What Was The Date Of Your Most Recent Tobacco Screening? 12/30/2024 [email or web address] Information not available 12/30/2024 Are There Any Occupational Health Risks Where You Work? No [email or web address] Information not available 12/30/2024 Do You Have Any Pets? Yes [email or web address] Information not available 12/30/2024 Do You Use Protection During Sex? No [email or web address] Information not available 12/30/2024 What Is Your Relationship Status? [email or web address] Information not available 12/21/2024 Have You Repeated Any Grades? No [email or web address] Information not available 12/30/2024 Do You Use Your Seat Belt Or Car Seat Routinely? Yes [email or web address] Information not available 12/30/2024 Are You Sexually Active? Yes [email or web address] Information not available 12/21/2024 Do You Have Any Siblings? 2 [email or web address] Information not available 12/30/2024 Do You Have Smoke And Carbon Monoxide Detectors In Your Home? Yes [email or web address] Information not available 12/30/2024 Are You Passively Exposed To Smoke? No [email or web address] Information no t available 12/30/2024 Are There Any Smokers In Your House? No [email or web address] Information not available 12/30/2024 How Much Tobacco Do You Smoke? No [email or web address] Information not available 12/21/2024 What Types Of Sporting Activities Do You Participate In? None At This Time [email or web address] Information not available 12/30/2024 Do You Use Sunscreen Routinely? Yes [email or web address] Information not available 12/30/2024 Has Tobacco Cessation Counseling Been Provided? Yes [email or web address] Information not available 12/21/2024 On What Date Was Tobacco Cessation Counseling Provided? 12/30/2024 Information not available 12/30/2024 How Many Years Have You Smoked Tobacco? 0 [email or web address] Information not available 12/21/2024 Do You Have Difficulty Walking Or Climbing Stairs? No [email or web address] Information not available 12/30/2024 Sex: Female Functional Status Question Answer Note LastModified by Organizat ion Details LastModified Time Do you use any illicit or recreational drugs? No [email or web address] Information not available 12/21/2024 What is your level of alcohol consumption? None [email or web address] Information not available 12/21/2024 Are you currently employed? Yes [email or web address] Information not available 12/30/2024 Are you able to walk independently without assistance or assistive devices? YESWOREST [email or web address] Information not available 12/30/2024 Do you have difficulty doing errands alone? No [email or web address] Information not available 12/30/2024 Are you able to care for yourself independently? Yes Information not available 12/30/2024 Do you have difficulty dressing, bathing, grooming, or toileting? No [email or web address] Information not available 12/30/2024 What is your exercise level? Occasional [email or web address] Information not available 12/30/2024 Mental Status Question Answer Note LastModified by Organization D etails LastModified Time Do you have difficulty concentrating, remembering or making decisions? No [email or web address] Information no t available 12/30/2024 Are you or have you been involved with bullying? No [email or web address] Information not available 12/30/2024 Family History Relationship Description Onset Age of this Age Resolved Age Notes LastModified by Organization Details LastModified Time Paternal Grandmother Arthritis [email or web address] Not available 11:14:51 Paternal Grandmother Hypertensive disorder [email or web address] Not available 2024 11:14:51 Medical History Condition Response Allergies (Food, seasonal, environmental ) Y Obesity Y Other Y Gynecological History Statement/Question Response Abnormal Pap [...] ICD10 Code Diagnosis IMO Codes Diagnosis Note [id number] Tiki Nye NP [facility] [address] [place] [address] 12/21/2024 09:38:07 12/21/2024 11:18:58 Adult health examination 262555643 Z00.00 Irregular periods 255552 07 N92.6 Hyperlipid emia screening 422390205 Z13.220 Vitamin D deficiency [id number] E55.9 Fatigue [id number] R53.83 Viral screening [id number] Z11.59 Cough 45024052 R05.9 [id number] Tiki Nye NP [facility] [address] [place] [address] 12/30/2024 10:54:47 12/30/2024 11:37:15 Body mass index 30+ - obesity [id number] Z68.30 STOP metformin Herpes simplex [id number] B00.9 Health Concerns Section Related Observation LastModified by Organization Detai ls LastModified Time None Recorded Concern Status LastModified by Organization Details LastModified Time None Recorded Advance Directives Directive N: Payers Insurance Date Sequence Insurance Name Policy Number Policy Prabhakar Covered Member ID Prabhakar Member ID Guarantor Name 06/18/2025 1 [place] PR[place] (HMO) [id number] Mimi Macario [id number] Mimi Macario Notes Date Note Type [...] states that she sees Dr. Cruz in [place] for fertility. Patient states that she has [...] or concerns today. Tiki Nye NP [address] [place], [address], [employer], [employer]. 12/21/2024 12:51:38 12/30/2024 text/html ROS as noted [...] for today's visit. Tiki Nye NP [address] [place], [address], [employer] 12/30/2024 12:26:41 OBGyn Episode No OBEpisode recorded.
== END 2025-08-18 23:59 | disposition home or self-care (01) ==
LOC: LAB 11:05
PROVIDERS: Visit Provider Obstetrics & Gynecology Reproductive Endocrinology
DX: Z32.01 Encounter for pregnancy test, result positive (principal)
CPT/HCPCS: 36415; 84702

== ENCOUNTER 2025-09-09 10:20 | Outpatient (CLI) | payer OTHER, SELFPAY ==
--- NOTE | 2025-09-09 10:00 | US_ITS ---
PROCEDURE: US OB TRANSVAGINAL CLINICAL INDICATION: spotting during ; viability COMPARISON: No exams were available for comparison FINDINGS: Transvaginal sonographic images of the pelvis were obtained. From her last menstrual period she is 8weeks 1day. An intrauterine gestational sac is present with a pole with a crown-rump length of 1.84cm This correlates to a gestational age of 8weeks 3days. RICHIE will remain 04/20/2026. heart tones are present with an FHR of 176bpm. Yolk sac is noted. The yolk sac measures 6.5mm. There appears to be a small collection of fluid in the lower uterine segment possibly consistent with a small subchorionic hemorrhage. There is a nabothian cyst in the cervix that measures 0.9 cm in size. The right ovary is seen and appears normal. The left ovary is seen and appears normal. There is a cystic area within the left ovary that appears to be an endometrioma that measures 5.0 cm x 1.9 cm x 3.3 cm. It has a ground-glass appearance. There is no fluid in the cul-de-sac. IMPRESSION: 1. Viable embryo within the uterine cavity. Heart rate activity is seen. 2. The embryo measures 8 weeks 3 days and her RICHIE will remain 04/20/2026. 3. Both ovaries are seen. The right ovary contains a 5.0 cm x 3.3 cm endometrioma. 4. No fluid in the cul-de-sac. Dictated by: Tremaine Krueger MD 09/09/2025 11:09 Tremaine Krueger MD in OV 09/09/2025 11:09
--- OUTSIDE RECORDS SUMMARY | 2025-09-09 10:25 | XMS_ITS | Patient Health Record ---
Author Organization [facility] Billing Info Address [address] [place], [place] [address] Support Name Relationship Address Phone Carli Painter Emergency Contact Unknown [phone] Mimi Vyas Guarantor Unknown [phone] Reason For Referral No Information Plan Of Treatment No Information Insurance Providers Payer Name Payer Address Payer Phone Subscriber Number Group Number Insured Name Patient Relationship to Insured Coverage Start Date Coverage End Date [employer] PPO [address] [place], [place] [id number] [phone] [id number] Mimi Vyas Self - patient is the insured 8 [phone]
--- OUTSIDE RECORDS SUMMARY | 2025-09-09 10:25 | XMS_ITS | Referral Summary ---
Author Organization [employer] ([place], [place], [place], [place], [place]) Address [address] [place] [address] Care Team Providers Care Dermatological Surgeon Name Role Phone Unavailable Primary Care Provider [...] Date Luis rded Speak language other than [place]alander at home Not on file 03/13/2024 Want [...]
--- OUTSIDE RECORDS SUMMARY | 2025-09-09 10:25 | XMS_ITS | Clinical Summary ---
Author Organization [email or web address] ([place], [place], [place], [place], [place]) Address [address] [place] [address] Care Team Providers Care Director Microbiology Name Role Phone Unavailable Primary Care Provider [...] Date Luis rded Speak language other than Senegalese at home Not on file 03/13/2024 Want [...]
--- OUTSIDE RECORDS SUMMARY | 2025-09-09 10:25 | XMS_ITS | Patient Health Record ---
Author Organization [facility] Address [address] [place] [address] Support Name Relationship Address Phone ARNULFO Macario Guarantor Unknown [phone] Reason For Referral No Information Medications Medication SIG (Take, Route, Frequency, Duration) Notes Start Date End Date Status Delsym *Please review a nd pick correct strength-formulation from Plink options. If intended option is not shown, [...] Insured Coverage Start Date Coverage End Date [facility] [address] [place] [address] [id number] ARNULFO Macario Self - patient is the insured Medical (General) History Medical History History ICD Code depression poss . no confirmed test Surgical History Surgery Date(Month/Year) wisdom tooth extraction 2008
--- OUTSIDE RECORDS SUMMARY | 2025-09-09 10:25 | XMS_ITS | Data Portability ---
Author Organization [employer] [place] - MSE Address [address] [place] [id number] Assessment No assessment recorded. Plan of Treatment Reminders Order Date Submit Date Provider Last Modified By Organization Details Last Modified Time Details Appointments None recorded. Lab HIV 1 + 2, meaningful use set [address]24 [address] [facility], [address] [place], [address], 5 15:08:06 Hepatitis C IgG Ab, qual, serum 2024 025 [facility] [address] [facility], [place], [address], 5 15:08:04 lipid panel, serum or plasma 2024 025 [facility], [address] [place], [address], 5 15:08:02 rapid flu (A+B) [email or web address], [address] [facility], [place], [address], 5 11:01:32 rapid SARS CoV 2 Ag, QL, IA, upper respiratory specimen [email or web address], [address] [place], [address], 5 11:01:30 CBC w/ auto diff 2024 025 [facility] ([place]), [address] [place], [address], 5 15:08:00 CMP, serum or plasma 2024 025 [facility] ([place]), [address] [place], [address], 5 15:08:01 dhea-sulfat e, serum 2024 025 [facility] ([place]), [address] [place], [address], 5 15:08:05 insulin, serum 2024 025 [facility] ([place]), [address] [place], [address], 5 15:08:06 TSH, serum, reflex free T4 [email or web address] [place] [address] ([place]), [address] [place], [address], 5 08:53:50 testosteron e, free + total, serum 2024 025 [facility] ([place]), [address] [place], [address], 5 15:08:03 prolactin, serum 2024 025 [facility] ([place]), [address] [place], [address], 5 15:08:05 cobalamin and folate panel, serum 2024 025 [facility]), [address] [place], [address], 15:08:03 Referral None recorded. Procedures None recorded. Surgeries None recorded. Imaging None recorded. Medication Orders acyclovir 400 mg tablet 2024 [facility], [address], [place], [address], 11:46:52 Zepbound 2.5 mg/0.5 mL subcutaneou s pen injector 2024 025 [facility], [address], [place], [address], 11:46:54 Patient TargetsNo targets recorded. Patient Instructions Encounter Date Encounter Id Patient Instructions Last Modified By Organization Details Last Modified Time 12/21/2024 [id number] cough: care instructions [email or web address] Not available 12/21/2024 11:01:29 12/30/2024 [id number] body mass index: care instructions Not available 12/30/2024 11:38:16 learning about healthy weight Not available 12/30/2024 11:38:16 Reason for Referral None Reported. Results Created Date Observation Date Name Description Value Unit Range Abnormal Flag Note LastModifiedBy Organization Detail LastModifiedTime 12/21/1912/22/2024 CBC WITH DIFFE RENTI AL/PL ATELE T WBC 4.0 x10e3 /uL 3.4-10 .8 normal Not Available [facility] ([facility]) [address] [place], [address], 12/28/2024 15:08:00 12/21/19 25 12/22/2024 CBC WITH DIFFE RENTI AL/PL ATELE T RBC 5.42 x10e6 /uL 3.77-5 .28 above high normal Not Available [facility] ([facility]) [address] [place], [address], 12/28/2024 15:08:00 12/21/19 25 12/22/2024 CBC WITH DIFFE RENTI AL/PL ATELE T hemoglobin 15.4 g/dL 11.1-1 5.9 normal Not Available [facility] ([facility]) [address] [place], [address], 12/28/2024 15:08:00 12/21/19 25 12/22/2024 CBC WITH DIFFE RENTI AL/PL ATELE T hematocrit 48.4 % 34.0-4 6.6 above high normal Not Available [facility] ([facility]) [address] [place], [address], 12/28/2024 15:08:00 12/21/19 25 12/22/2024 CBC WITH DIFFE RENTI AL/PL ATELE T MCV 89 fL 79-97 normal Not Available [facility] ([facility]) [address] [place], [address], 12/28/2024 15:08:00 12/21/19 25 12/22/2024 CBC WITH DIFFE RENTI AL/PL ATELE T MCH 28.4 pg 26.6-3 3.0 normal Not Available [facility] ([facility]) [address] [place], [address], 12/28/2024 15:08:00 12/21/19 25 12/22/2024 CBC WITH DIFFE RENTI AL/PL ATELE T MCHC 31.8 g/dL 31.5-3 5.7 normal Not Available [facility] ([facility]) [address] [place], [address], 12/28/2024 15:08:00 12/21/19 25 12/22/2024 CBC WITH DIFFE RENTI AL/PL ATELE T RDW 11.9 % 11.7-1 5.4 Not Available [facility] ([facility]) [address] [place], [address], 12/28/2024 15:08:00 12/21/19 25 12/22/2024 CBC WITH DIFFE RENTI AL/PL ATELE T platelets 219 x10e3 /uL 150-45 0 normal Not Available [facility] ([facility]) [address] [facility], [place], [address], 12/28/2024 15:08:00 12/21/19 25 12/22/2024 CBC WITH DIFFE RENTI AL/PL ATELE T neutrophils 47 % not estab. normal Not Available [facility] ([facility]) [address] [facility], [place], [address], 12/28/2024 15:08:00 12/21/19 25 12/22/2024 CBC WITH DIFFE RENTI AL/PL ATELE T lymphs 35 % not estab. normal Not Available [facility] ([facility]) [address] [facility], [place], [address], 12/28/2024 15:08:00 12/21/19 25 12/22/2024 CBC WITH DIFFE RENTI AL/PL ATELE T monocytes 13 % not estab. normal Not Available [facility] ([facility]) [address] [facility], [place], [address], 12/28/2024 15:08:00 12/21/19 25 12/22/2024 CBC WITH DIFFE RENTI AL/PL ATELE T eos 5 % not estab. normal Not Available [facility] ([facility]) [address] [facility], [place], [address], 12/28/2024 15:08:00 12/21/19 25 12/22/2024 CBC WITH DIFFE RENTI AL/PL ATELE T basos 0 % not estab. normal Not Available [facility] ([facility]) [address] [facility], [place], [address], 12/28/2024 15:08:00 12/21/19 25 12/22/2024 CBC WITH DIFFE RENTI AL/PL ATELE T immature cells MANAGER ROUTE Not Available [facility] ([facility]) [address] [place], [address], 12/28/2024 15:08:00 12/21/19 25 12/22/2024 CBC WITH DIFFE RENTI AL/PL ATELE T neutrophils (absolute) 1.9 x10e3 /uL 1.4-7. 0 normal Not Available [facility] ([facility]) [address] [place], [address], 12/28/2024 15:08:00 12/21/19 25 12/22/2024 CBC WITH DIFFE RENTI AL/PL ATELE T lymphs (absolute) 1.4 x10e3 /uL 0.7-3. 1 normal Not Available [facility] ([facility]) [address] [place], [address], 12/28/2024 15:08:00 12/21/19 25 12/22/2024 CBC WITH DIFFE RENTI AL/PL ATELE T monocytes(ab solute) 0.5 x10e3 /uL 0.1-0. 9 normal Not Available [facility] ([facility]) [address] [place], [address], 12/28/2024 15:08:00 12/21/19 25 12/22/2024 CBC WITH DIFFE RENTI AL/PL ATELE T eos (absolute) 0.2 x10e3 /uL 0.0-0. 4 normal Not Available [facility] ([facility]) [address] [place], [address], 12/28/2024 15:08:00 12/21/19 25 12/22/2024 CBC WITH DIFFE RENTI AL/PL ATELE T baso (absolute) 0.0 x10e3 /uL 0.0-0. 2 normal Not Available [facility] ([facility]) [address] [place], [address], 12/28/2024 15:08:00 12/21/19 25 12/22/2024 CBC WITH DIFFE RENTI AL/PL ATELE T immature granulocytes 0 % not estab. Not Available [facility] ([facility]) [address] [facility], [place], [address], 12/28/2024 15:08:00 12/21/19 25 12/22/2024 CBC WITH DIFFE RENTI AL/PL ATELE T immature grans (abs) 0.0 x10e3 /uL 0.0-0. 1 Not Available [facility] ([facility]) [address] [facility], [place], [address], 12/28/2024 15:08:00 12/21/19 25 12/22/2024 CBC WITH DIFFE RENTI AL/PL ATELE T NRBC MANAGER ROUTE Not Available [facility] ([facility]) [address] [facility], [place], [address], 12/28/2024 15:08:00 12/21/19 25 12/22/2024 CBC WITH DIFFE RENTI AL/PL ATELE T hematology comments: MANAGER ROUTE Not Available [facility] ([facility]) [address] [facility], [place], [address], 12/28/2024 15:08:00 12/21/19 25 12/22/2024 COMP. METAB OLIC PANEL (14) glucose 89 mg/dL 70-99 normal Not Available [facility] ([facility]) [address] [facility], [place], [address], 12/28/2024 15:08:13 12/21/19 25 12/22/2024 COMP. METAB OLIC PANEL (14) BUN 12 mg/dL 6-20 normal Not Available [facility] ([facility]) [address] [facility], [place], [address], 12/28/2024 15:08:13 12/21/19 25 12/22/2024 COMP. METAB OLIC PANEL (14) creatinine 0.77 mg/dL 0.57-1 .00 normal Not Available [facility] ([facility]) [address] [facility], [place], [address], 12/28/2024 15:08:13 12/21/19 25 12/22/2024 COMP. METAB OLIC PANEL (14) eGFR 102 mL/mi n/1.7 3 >59 normal Not Available [facility] ([facility]) [address] [facility], [place], [address], 12/28/2024 15:08:13 12/21/19 25 12/22/2024 COMP. METAB OLIC PANEL (14) BUN/creatini ne ratio 16 9-23 normal Not Available [facility] ([facility]) [address] [facility], [place], [address], 12/28/2024 15:08:13 12/21/19 25 12/22/2024 COMP. METAB OLIC PANEL (14) sodium 140 mmol/ L 134-14 4 normal Not Available [facility] ([facility]) [address] [facility], [place], [address], 12/28/2024 15:08:13 12/21/19 25 12/22/2024 COMP. METAB OLIC PANEL (14) potassium 3.5 mmol/ L 3.5-5. 2 normal Not Available [facility] ([facility]) [address] [facility], [place], [address], 12/28/2024 15:08:13 12/21/19 25 12/22/2024 COMP. METAB OLIC PANEL (14) chloride 104 mmol/ L 96-106 normal Not Available [facility] ([facility]) [address] [facility], [place], [address], 12/28/2024 15:08:13 12/21/19 25 12/22/2024 COMP. METAB OLIC PANEL (14) carbon dioxide, total 21 mmol/ L 20-29 normal Not Available [facility] ([facility]) [address] [facility], [place], [address], 12/28/2024 15:08:13 12/21/19 25 12/22/2024 COMP. METAB OLIC PANEL (14) calcium 9.0 mg/dL 8.7-10 .2 normal Not Available [facility] ([facility]) [address] [place], [address], 12/28/2024 15:08:13 12/21/19 25 12/22/2024 COMP. METAB OLIC PANEL (14) protein, total 7.3 g/dL 6.0-8. 5 normal Not Available [facility] ([facility]) [address] [place], [address], 12/28/2024 15:08:13 12/21/19 25 12/22/2024 COMP. METAB OLIC PANEL (14) albumin 4.4 g/dL 3.9-4. 9 normal Not Available [facility] ([facility]) [address] [place], [address], 12/28/2024 15:08:13 12/21/19 25 12/22/2024 COMP. METAB OLIC PANEL (14) globulin, total 2.9 g/dL 1.5-4. 5 Not Available [facility] ([facility]) [address] [place], [address], 12/28/2024 15:08:13 12/21/19 25 12/22/2024 COMP. METAB OLIC PANEL (14) bilirubin, total 0.2 mg/dL 0.0-1. 2 normal Not Available [facility] ([facility]) [address] [place], [address], 12/28/2024 15:08:13 12/21/19 25 12/22/2024 COMP. METAB OLIC PANEL (14) alkaline phosphatase 64 IU/L 44-121 normal Not Available [facility] ([facility]) [address] [place], [address], 12/28/2024 15:08:13 12/21/19 25 12/22/2024 COMP. METAB OLIC PANEL (14) AST (SGOT) 16 IU/L 0-40 normal Not Available [facility] ([facility]) [address] [place], [address], 12/28/2024 15:08:13 12/21/19 25 12/22/2024 COMP. METAB OLIC PANEL (14) ALT (SGPT) 14 IU/L 0-32 normal Not Available [facility] ([facility]) [address] [place], [address], 12/28/2024 15:08:13 12/21/19 25 12/22/2024 LIPID PANEL WITH LDL/H DL RATIO cholesterol, total 175 mg/dL 100-19 9 normal Not Available [facility] ([facility]) [address] [place], [address], 12/28/2024 15:08:14 12/21/19 25 12/22/2024 LIPID PANEL WITH LDL/H DL RATIO triglyceride s 93 mg/dL 0-149 normal Not Available [facility] ([facility]) [address] [place], [address], 12/28/2024 15:08:14 12/21/19 25 12/22/2024 LIPID PANEL WITH LDL/H DL RATIO HDL cholesterol 51 mg/dL >39 normal Not Available [facility]) [address] [place], [address], 12/28/2024 15:08:14 12/21/19 25 12/22/2024 LIPID PANEL WITH LDL/H DL RATIO VLDL cholesterol syed 17 mg/dL 5-40 Not Available [facility] ([facility]) [address] [place], [address], 12/28/2024 15:08:14 12/21/19 25 12/22/2024 LIPID PANEL WITH LDL/H DL RATIO LDL chol calc ([facility]) 107 mg/dL 0-99 above high normal Not Available [facility] ([facility]) [address] [facility], [place], [address], 12/28/2024 15:08:14 12/21/19 25 12/22/2024 LIPID PANEL WITH LDL/H DL RATIO LDL calc comment: MANAGER ROUTE Not Available [facility] ([facility]) [address] [facility], [place], [address], 12/28/2024 15:08:14 12/21/19 25 12/22/2024 LIPID PANEL WITH LDL/H DL RATIO LDL/HDL ratio 2.1 ratio 0.0-3. 2 LDL/H DL Ratio Men Women 1/2 Avg.R isk 1.0 1.5 Avg.R isk 3.6 3.2 2X Avg.R isk 6.2 5.0 3X Avg.R isk 8.0 6.1 Not Available [facility] ([facility]) [address] [place], [address], 12/28/2024 15:08:14 12/21/19 25 12/22/2024 VITAM IN B12 AND FOLAT E vitamin B12 489 pg/mL 232-12 45 normal Not Available [facility] ([facility]) [address] [facility], [place], [address], 12/28/2024 15:08:16 12/21/19 25 12/22/2024 VITAM IN B12 AND FOLAT E folate (folic acid), serum 19.4 NG/mL >3.0 normal A serum folat e fernando ntrat ion of less than 3.1 ng/mL is consi dered to repre sent clini syed defic iency . Not Available [facility] ([facility]) [address] [facility], [place], [address], 12/28/2024 15:08:16 12/21/19 25 12/26/2024 TESTO STERO NE, FREE+ TOTAL LC/MS free testosterone (direct) 0.4 pg/mL 0.0-4. 2 Not Available [facility] ([facility]) [address] [facility], [place], [address], 12/28/2024 15:08:16 12/21/19 25 12/28/2024 TESTO STERO NE, FREE+ TOTAL LC/MS testosterone , total, lc/MS 16.8 NG/dL 10.0-5 5.0 Not Available [facility] ([facility]) [address] [facility], [place], [address], 12/28/2024 15:08:16 12/21/19 25 12/22/2024 HCV ANTIB LUDMILA CASCA DE(PC R/GEN O) HCV Ab Non Reacti ve non reacti ve Not Available [facility] ([facility]) [address] [facility], [place], [address], 12/28/2024 15:08:04 12/21/19 25 12/22/2024 HCV ANTIB LUDMILA CASCA DE(PC R/GEN O) interpretati on: Commen t Not infec suha with HCV unles s early or acute infec tion is suspe cted (whic h may be delay ed in an immun ocomp romis ed indiv idual ), or other evide nce exist s to indic ate HCV infec tion. Not Available [facility] ([facility]) [address] [facility], [place], [address], 12/28/2024 15:08:04 12/21/1912/28/2024 DHEA- SULFA TE, SERUM [...] - 286 Not Available [facility] [address] [place] [address], [place], [address], 12/28/2024 15:08:15 12/21/19 25 12/22/2024 PROLA CTIN prolactin 6.1 NG/mL 4.8-33 .4 normal Not Available [facility] ([facility]) [address] [place], [address], 12/28/2024 15:08:18 12/21/19 25 12/22/2024 HIV AB/P2 4 AG WITH REFLE X HIV Ab/P24 Ag screen Non Reacti ve non reacti ve HIV-1 /HIV- 2 antib odies and HIV-1 p24 antig en were NOT detec suha. There is no labor atory evide nce of HIV infec tion. HIV Negat fay Not Available [facility] ([facility]) [address] [place], [address], 12/28/2024 15:08:06 12/21/19 25 12/22/2024 INSUL IN insulin 6.6 uIU/m L 2.6-24 .9 normal Not Available [facility] ([facility]) [address] [place], [address], 12/28/2024 15:08:20 12/21/19 25 12/22/2024 TSH+F REE T4 TSH 1.160 uIU/m L 0.450- 4.500 normal Not Available [facility] ([facility]) [address] [place], [address], 12/28/2024 15:08:13 12/21/19 25 12/22/2024 TSH+F REE T4 T4,free(dire ct) 1.13 NG/dL 0.82-1 .77 normal Not Available [facility] ([facility]) [address] [place], [address], 12/28/2024 15:08:13 12/21/19 25 12/21/2024 rapid SARS CoV 2 Ag, QL, IA, upper respi rator y speci men SARS CoV Ag negati ve Not Available [facility] [address] [facility], [place], [address], 12/21/2024 11:01:11 12/21/19 25 12/21/2024 rapid flu (A+B) Flu A negati ve Not Available [facility] [address] [facility], [place], [address], 12/21/2024 11:00:28 12/21/19 25 12/21/2024 rapid flu (A+B) Flu B negati ve Not Available [facility] [address] [facility], [place], [address], 12/21/2024 11:00:28 Result Notes None recorded. Problems Name Problem SNOMED Code Status Onset Date Resolution Date Notes Provider Name and Address Organization Details Recorded Time Irregular periods 11399619 Active 025 Tiki Nye NP [address] [place] [address], [phone], [employer] 5 10:58:34 Vitamin D deficiency 35457716 Active 025 Tiki Nye NP [address] [place] [address], [phone], [employer] 5 10:59:46 Fatigue 54284599 Active 025 Tiki Nye NP [address] [place] [address], [phone] 8, [employer] 5 10:59:50 Cough 29003993 Active 025 Tiki Nye NP [address] [place] [address], [phone], [place] [employer] 5 11:00:54 Herpes simplex 10488927 Active 025 SUMMER LEONE NP [address] [place] [address], [phone], [employer] 5 10:14:08 Problem Notes None recorded. Procedures Surgical History Date Name Laterality Status Provider Name and Address Organization Details Recorded Time 06/18/20 24 Date of Last Pap Smear completed [employer] 12/30/2024 11:14:51 Appendectomy completed [email or web address] 12/21/2024 09:54:40 excision of melanoma completed [employer] 12/21/2024 09:54:56 Ear Tube completed [employer] [facility] 12/21/2024 09:55:20 Imaging Results None recorded. Procedure [...] and Address Organization Details Last Updated DateTime 04774.8 3 g 34.4 kg/m2 165.1 cm 98.1 [degF] 98 /min 98 % 98 % 116/74 mm[Hg] [facility] [employer] 5 09:59:23 Date Recorded Body height Body mass index (BMI) Body weight Body temperature Heart rate Oxygen saturation Oxygen saturation in Arterial blood by Pulse oximetry Systolic And Diastolic Provider Name and Address Organization Details Last Updated DateTime 5 165.1 cm 34.6 kg/m2 91845.2 1 g 97.6 [degF] 75 /min 98 % 98 % 128/80 mm[Hg] [employer] [employer] 5 11:16:22 Social History Question Answer Notes LastModified by Organizat ion Details LastModified Time Tobacco Smoking Status Never Smoker [employer] 12/21/2024 09:52:42 Do You Have An Advance Directive? No [email or web address] Information not available 12/30/2024 Is Your Home Air Conditioned? Yes [email or web address] Information not available 12/30/2024 If You Are , What Was Your Level Of Alcohol Consumption Prior To ? None [email or web address] Information not available 12/30/2024 Do You Wear A Helmet When Biking? No [email or web address] Information not available 12/30/2024 Are You Blind Or Do You Have Difficulty Seeing? No Information not available 12/30/2024 What Is Your Level Of Caffeine Consumption? Moderate Information not available 12/30/2024 What Type Of Sustainable Products Marketing Manager Do You Use? Relative [email or web address] Information not available 12/30/2024 Are You Deaf Or Do You Have Serious Difficulty Hearing? No [email or web address] Information not available 12/30/2024 What Type Of Diet Are You Following? REGULAR [email or web address] Information not available 12/30/2024 Who Is Your Employer? [employer] [email or web address] Information not available 12/30/2024 How Many Days Of Moderate To Strenuous Exercise, Like A Brisk Walk, Did You Do In The Last 7 Days? 2 [email or web address] Information not available 12/30/2024 Have There Been Any Changes To Your Family Or Social Situation? No [email or web address] Information no t available 12/30/2024 Are There Any Guns Present In Your Home? No [email or web address] Information not available 12/30/2024 Which Of Your Hands Is Dominant? Right [email or web address] Information not available 12/30/2024 What Is Your Home Situation? Other [email or web address] Information not available 12/30/2024 Do You Have A Medical Power Of Cosmetics Counter Manager? No [email or web address] Information not available 12/30/2024 What Was The Date Of Your Most Recent Tobacco Screening? 12/30/2024 [email or web address] Information not available 12/30/2024 Are There Any Occupational Health Risks Where You Work? No [email or web address] Information not available 12/30/2024 Do You Have Any Pets? Yes [email or web address] Information not available 12/30/2024 Do You Use Protection During Sex? No [email or web address] Information not available 12/30/2024 What Is Your Relationship Status? [email or web address] Information not available 12/21/2024 Have You Repeated Any Grades? No [email or web address] Information not available 12/30/2024 Do You Use Your Seat Belt Or Car Seat Routinely? Yes [email or web address] Information not available 12/30/2024 Are You Sexually Active? Yes Information not available 12/21/2024 Do You Have Any Siblings? 2 [email or web address] Information not available 12/30/2024 Do You Have Smoke And Carbon Monoxide Detectors In Your Home? Yes [email or web address] Information not available 12/30/2024 Are You Passively Exposed To Smoke? No [email or web address] Information no t available 12/30/2024 Are There Any Smokers In Your House? No [email or web address] Information not available 12/30/2024 How Much Tobacco Do You Smoke? No [email or web address] Information not available 12/21/2024 What Types Of Sporting Activities Do You Participate In? None At This Time [email or web address] Information not available 12/30/2024 Do You Use Sunscreen Routinely? Yes [email or web address] Information not available 12/30/2024 Has Tobacco Cessation Counseling Been Provided? Yes [email or web address] Information not available 12/21/2024 On What Date Was Tobacco Cessation Counseling Provided? 12/30/2024 [email or web address] Information not available 12/30/2024 How Many Years Have You Smoked Tobacco? 0 [email or web address] Information not available 12/21/2024 Do You Have Difficulty Walking Or Climbing Stairs? No [email or web address] Information not available 12/30/2024 Sex: Female Functional Status Question Answer Note LastModified by Organizat ion Details LastModified Time Do you use any illicit or recreational drugs? No [email or web address] Information not available 12/21/2024 What is your level of alcohol consumption? None Information not available 12/21/2024 Are you currently employed? Yes [email or web address] Information not available 12/30/2024 Are you able to walk independently without assistance or assistive devices? YESWOREST [email or web address] Information not available 12/30/2024 Do you have difficulty doing errands alone? No [email or web address] Information not available 12/30/2024 Are you able to care for yourself independently? Yes [email or web address] Information not available 12/30/2024 Do you have difficulty dressing, bathing, grooming, or toileting? No [email or web address] Information not available 12/30/2024 What is your exercise level? Occasional Information not available 12/30/2024 Mental Status Question Answer Note LastModified by Organization D etails LastModified Time Do you have difficulty concentrating, remembering or making decisions? No [email or web address] Information no t available 12/30/2024 Are you or have you been involved with bullying? No [email or web address] Information not available 12/30/2024 Family History Relationship Description Onset Age of this Age Resolved Age Notes LastModified by Organization Details LastModified Time Paternal Grandmother Arthritis [email or web address] Not available 11:14:51 Paternal Grandmother Hypertensive disorder [email or web address] Not available 2024 11:14:51 Medical History Condition [...] ICD10 Code Diagnosis IMO Codes Diagnosis Note [id number] Tiki Nye NP [facility] [address] [place] [address] 12/21/2024 09:38:07 12/21/2024 11:18:58 Adult health examination 707423069 Z00.00 Irregular periods 040739 07 N92.6 Hyperlipid emia screening 636173321 Z13.220 Vitamin D deficiency 347 34537 E55.9 Fatigue 78466698 R53.83 Viral screening 28846555 4 Z11.59 Cough 03203209 R05.9 [id number] Tiki Nye NP [facility] [address] [facility] [place] [address] 12/30/2024 10:54:47 12/30/2024 11:37:15 Body mass index 30+ - obesity 170643785 Z68.30 STOP metformin Herpes simplex 03984260 B00.9 Health Concerns Section Related Observation LastModified by Organization Detai ls LastModified Time None Recorded Concern Status LastModified by Organization Details LastModified Time None Recorded Advance Directives Directive N: Payers Insurance Date Sequence Insurance Name Policy Number Policy Prabhakar Covered Member ID Prabhakar Member ID Guarantor Name 06/18/2025 1 [place] PREFERRED PRIMARY (HMO) [id number] Mimi Macario [id number] Mimi Macario Notes Date Note Type [...] states that she sees Dr. Cruz in [place] for fertility. Patient states that she has [...] or concerns today. Tiki Nye NP [address] [place], [address], [employer] 12/21/2024 12:51:38 12/30/2024 text/html ROS as noted [...] for today's visit. Tiki Nye NP [address] [place], [address], [employer] 12/30/2024 12:26:41 OBGyn Episode No OBEpisode recorded.
== END 2025-09-09 23:59 | disposition home or self-care (01) ==
LOC: RAD 10:20
PROVIDERS: Visit Provider Nurse Practitioner Obstetrics & Gynecology
DX: O09.811 Supervision of pregnancy resulting from assisted reproductive technology, first trimester (principal); O09.291 Supervision of pregnancy with other poor reproductive or obstetric history, first trimester; O26.851 Spotting complicating pregnancy, first trimester; O99.891 Other specified diseases and conditions complicating pregnancy; N80.121 Deep endometriosis of right ovary; Z3A.08 8 weeks gestation of pregnancy
CPT/HCPCS: 76817

== ENCOUNTER 2025-09-17 17:02 | Emergency (ER) | payer OTHER, SELFPAY ==
[2025-09-17] VITALS (8 sets, daily range): BP systolic 106–135; BP diastolic 73–91; PULSE 80–99; RESP 15–18; TEMP 36.7–37.2; O2SAT 97–100; BMI 32.4
--- NOTE | 2025-09-17 17:09 | ED_ITS ---
<Statement entered by Mukul Tuttle DO - 09/18/25 01:18> I was consulted by the ANJELICA, and we discussed the complexity of problems being addressed. I approved the treatment and management plan for this patient's care in the emergency department, thus performing a substantive portion of the medical decision making. 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 She receives OB care through [facility]. The patient tells me that over the last 24 hours she has developed new onset shortness of breath and palpitations at home. She states that her shortness of breath is significantly impacting her quality of life as she is unable to perform usual activities that she is used to secondary to her shortness of breath impacting her performance and making her easily fatigued and causing her to feel out of breath. She does state that her was recently sick with streptococcal pharyngitis, but he did not have any evidence of viral infection and she is not currently feeling ill herself. She does not have any clinical findings consistent with DVT in any of her limbs. She is not having any chest pain. We decided to obtain hematologic labs including a D-dimer for restratification of pulmonary embolism. Patient's D-dimer was 0.64. Per years criteria I felt that the most likely diagnosis was a PE so used a cutoff of 0.5. Given that she is above this I felt that it was most prudent to proceed with a CT PE study. Therefore I presented to the bedside and had a very long approximate 25-minute conversation with the patient about our next Epson moving forward. We discussed risks and benefits of doing the scan as well as alternative therapies including empirically starting her on anticoagulation and deferring further workup of PE to her primary care provider/[facility]YROMETER MECHANIC. The patient actually reached out to her PYROMETER MECHANIC over the phone as she has good friends with this physician and they agreed with my assessment and plan to obtain a CT PE. I also presented to the bedside and performed a cardiac POCUS assessment. I found that the patient had an RV LV ratio less than 1 with no evidence of right heart strain or pericardial effusion. Still, I thought it was imperative to proceed with the scan and the patient was agreeable. She acknowledged understanding of risks and benefits of undergoing the scan while . She wished to proceed. CT scan ultimately showed no evidence of pulmonary embolism. Patient was discharged home in stable condition Limited cardiac ultrasound note Indication: Shortness of breath Identified cardiac views: [Cardiac parasternal long axis] [Cardiac parasternal short axis] [Cardiac apical four-chamber] [Cardiac subxiphoid] Findings: Cardiac activity: Present Gross wall motion: Normal Pericardial effusion: Absent Right heart strain: Absent Impression: Normal limited cardiac echo Images were saved to permanent archive This study was technically adequate CPT: 18833 This study was performed by me and I personally interpreted all images/videos. Based on my clinical judgment these images were adequate and did not necessitate further imaging. Discharge Plan Disposition Patient Disposition: Home, Self-Care Condition: Good Prescriptions Prescriptions: New nitrofurantoin monohyd/m-cryst [Macrobid] 100 mg capsule 100 mg PO BID 5 Days Qty: 10 0RF Rx Instructions: must administer with a meal/food No Action valacyclovir 500 mg tablet 500 mg PO DAILY progesterone micronized 200 mg capsule 200 mg PO TID estradiol 2 mg tablet 2 mg PO TID aspirin 81 mg tablet 81 mg PO DAILY Classic 28 mg iron- 800 mcg tablet 1 tab PO DAILY Referrals Follow up/Referrals: Provider,Referral, [Primary Care Provider, Medical] - See instructions Schuyler Strong MD [Staff Physician, Cardiology] - See instructions Activity Restrictions/Add. Instructions Additional Instructions/Restrictions: Please follow-up with your PCP lieutenant governor and PYROMETER MECHANIC in the upcoming days/weeks. Please take your antibiotic as prescribed with food. Please return to the emergency department with any worsening signs or symptoms. Clinical Impressions Clinical Impression: Heart palpitations, Asymptomatic bacteriuria Instructions Patient Instructions: DI for Palpitations Print Language Print Language: Moldovan Discharge ED Provider: Mukul Tuttle General Adult HPI <MANISH Lee - Last Filed: 09/17/25 21:28> General Chief complaint: Shortness of Breath/Dyspnea Stated complaint: 9 weeks AP, SOA, She feels like heart is racing Time Seen by Provider: 09/17/25 17:07 Mode of Arrival: Ambulatory Source of Information: Patient and Medical Record Limitations: No Limitations History of Present Illness HPI narrative: 40-year-old female A1, at approximately 9 weeks gestation, via IVF, presents to the emergency department with a 2-week history of heart palpitations, and dyspnea that started the last couple of days, with rhinorrhea no fever no chills,. Known sick contact being the patient's who had strep . Patient denies any overt chest pain, denies any abdominal pain, has nausea and vomiting but has been in line with her current thus far, denies any vaginal bleeding vaginal discharge denies any constipation diarrhea urinary symptomatology, patient is a non-smoker denies any alcohol or drug use, other past medical history is consistent with prior spontaneous , patient is on estradiol and progesterone therapy via the IVF clinic as well as aspirin, initial triage vitals unremarkable. Also of note, patient had recent PYROMETER MECHANIC consultation with transvaginal ultrasound performed showing viable embryo/IUP. Please note that above description of symptoms, in this electronic medical record under categorization of recalled from ER triage doctor by RN are reflective of an initial nursing assessment, however, is not reflective of my full history and physical exam that was personally taken and clarified. Consequentially, this preceding description of symptoms, which may include the patient's categorized chief complaint in the EMR, do not reflect my personal clinical impression, and the ultimate description of history of present illness and patient stated complaints should be deferred to this section of the note. Unless stated otherwise or congruent with this section of the note, additional signs, symptoms, or incongruence should be interpreted as inaccurate with my clinical impression. Onset (ago): week(s) Related Data Home Medications ?Medication ?Instructions ?Recorded ?Confirmed aspirin 81 mg tablet 81 mg PO DAILY 09/09/2504/28 estradiol 2 mg tablet 2 mg PO TID 09/09/25 5 vits no.126-ferrous fum 1 tab PO DAILY 09/09/25 28 mg iron-folic acid 800 mcg tablet (Classic ) progesterone micronized 200 mg 200 mg PO TID 09/09/25 09/09/25 capsule valacyclovir 500 mg tablet 500 mg PO DAILY 09/09/25 Previous Rx's ?Medication ?Instructions ?Recorded nitrofurantoin 100 mg PO BID 5 days #10 cap s 09/17/25 monohydrate/macrocrystals 100 mg capsule (Macrobid) Allergies Allergy/AdvReac Type Severity Reaction Status Date / Time No Known Allergies Allergy Verified 09/09/25 09:32 [facility] <MANISH Lee - Last Filed: 09/17/25 21:28> [facility] Disclaimer: The information contained in this section may have been updated after the patient was seen, as this information can be updated by other users. Medical History (Updated 09/17/25 @ 21:28 by MANISH Lee) Hematuria without proteinuria Conceived by in vitro fertilization Pulsatile tinnitus of right ear Monomeric tympanic membrane of right ear Asymmetrical hearing loss Right SNHL Eustachian tube obstruction Bilateral serous otitis media Depression Anxiety Surgical History (Updated 09/09/25 @ 09:41 by ANDREA Archer) [place] teeth extracted History of placement of ear tubes History of removal of ovarian cyst Family History Other No significant family history Social History Smoking Status: Never smoker alcohol intake: never substance use type: denies use current occupational status: unemployed Travel in the last 8 weeks?: None Have you lived/traveled outside US in past 30 days?: No Contact w/someone who lives/traveled outside US past 30 days?: No Exposure to someone with infectious disease in past 14 days?: No Do you have a fever (greater than 100.4 F or 38 C)?: No Have you tested positive for COVID-19?: No Exposed to someone with COVID-19 in past 14 days?: No Do you have a sore throat?: No Do you have a cough?: No Do you have any weakness?: No Do you have any diarrhea?: No Are you experiencing any unusual bleeding?: No Do you have any muscle aches/pain?: No Do you have any abdominal pain?: No Are you experiencing loss of taste or smell?: No Other Medical History Have you received the Pneumonia Vaccine: No <MANISH Lee - Last Filed: 09/17/25 21:28> ROS Obtained: Yes All systems reviewed & no additional complaints except as documented Physical Exam <MANISH Lee - Last Filed: 09/17/25 21:28> General General appearance: alert and in no apparent distress Head Head exam: atraumatic and normocephalic Eye Eye exam: Present PERRL and EOMI ENT ENT exam: Present mucous membranes moist Neck Neck exam: Present normal inspection Chest Chest inspection: Present normal inspection and symmetric chest wall rise Respiratory Respiratory exam: Present normal lung sounds bilaterally; Absent respiratory distress, wheezes or stridor Cardiovascular Cardiovascular exam: Present regular rate and normal rhythm Abdominal Exam Abdominal exam: Present soft; Absent tenderness, guarding or rebound Extremities Exam Extremities exam: Present normal inspection Neurological Exam Neurological exam: Present alert and oriented X3 Psychiatric Psychiatric exam: Present normal affect Skin Skin exam: Present warm and dry Medical Decision Making <MANISH Lee - Last Filed: 09/17/25 21:28> Medical Records Screening: Per USPSTF and CDC recommendations, given the prevalence of disease in our region, it is our hospital?s policy to screen for HIV and viral Hepatitis for all patients aged 18 and over and those with ongoing risk factors. Vital Signs: 09/17/25 17:19 09/17/25 17:32 09/17/25 18:30 Temperature 98.1 F Temperature Source Oral Pulse Rate 80 90 Pulse Rate [Right Radial] 84 Respiratory Rate 15 Blood Pressure 106/86 L 128/91 H Blood Pressure [Right Arm] 135/82 Blood Pressure Mean [Right Arm] 99 Blood Pressure Source [Right Arm] Automatic Cuff Blood Pressure Position [Right Arm] Supine 02 Sat by Pulse Oximetry 99 99 100 Oxygen Delivery Method Room Air Room Air 09/17/25 19:00 09/17/25 19:30 09/17/25 20:00 Temperature Temperature Source Pulse Rate 98 H 99 H 98 H Pulse Rate [Right Radial] Respiratory Rate Blood Pressure 121/82 118/80 125/75 Blood Pressure [Right Arm] Blood Pressure Mean [Right Arm] Blood Pressure Source [Right Arm] Blood Pressure Position [Right Arm] 02 Sat by Pulse Oximetry 99 99 97 Oxygen Delivery Method 09/17/25 21:00 Temperature Temperature Source Pulse Rate 95 H Pulse Rate [Right Radial] Respiratory Rate Blood Pressure 117/81 Blood Pressure [Right Arm] Blood Pressure Mean [Right Arm] Blood Pressure Source [Right Arm] Blood Pressure Position [Right Arm] 02 Sat by Pulse Oximetry 97 Oxygen Delivery Method Lab Data Lab results reviewed: Yes I reviewed the patient's lab results. Lab Results 09/17/25 17:17: WBC 9.9, RBC 4.67, Hgb 13.7, Hct 40.7, MCV 87.2, MCH 29.3, MCHC 33.7, RDW 12.1, Plt Count 270, MPV 9.7, Neut % (Auto) 63.4, Lymph % (Auto) 25.6, Woodward % (Auto) 7.7, Eos % (Auto) 2.4, Baso % (Auto) 0.5, Neut # (Auto) 6.3, Lymph # (Auto) 2.5, Woodward # (Auto) 0.8, Eos # (Auto) 0.2, Baso # (Auto) 0.1, PT 11.4, INR 1.03, D-Dimer 0.63 H, Sodium 138, Potassium 3.8, Chloride 105, Carbon Dioxide 24, Anion Gap 12.8, BUN 17, Creatinine 0.80, Estimated Creat Clear 133, Estimated GFR 80, Est GFR ( Amer) 97, Glucose 86, Calcium 9.3, Magnesium 1.9, Total Bilirubin 0.2, AST 33, ALT 22, Alkaline Phosphatase 68, Troponin I < 0.01, NT-Pro-B Natriuret Pep 45.6, Total Protein 7.9, Albumin 4.4, Globulin 3.5 H, Albumin/Globulin Ratio 1.3, TSH 1.16, Thyroxine (T4) 14.6 H, HCG, Quant 427049 H, HCV Ab JACLYN w/Rflx PCR Qn Negative, HIV Ag/Ab Combo Qual Negative 09/17/25 17:22: Urine Color Yellow, Urine Appearance Clear, Urine pH 6.0, Ur Specific Lyman 1.034 H, Urine Protein Negative, Urine Glucose (UA) Negative, Urine Ketones Trace, Urine Blood Trace-i, Urine Nitrate Negative, Urine Bilirubin Negative, Urine Urobilinogen 0.2, Ur Leukocyte Esterase Negative, Urine RBC None, Urine WBC None, Ur Squamous Epith Cells 3-5, Urine Bacteria 3+ 09/17/25 17:32: SARS-CoV-2 (PCR) Not detected, Influenza A Untype (PCR) Not detected, Influenza Type B (PCR) Not detected 09/17/25 19:08: Group A Strep Rapid Negative 09/17/25 20:45: Troponin I < 0.01 09/17/25 17:17 09/17/25 17:17 Orders (Tests/Meds): ED MEDICATIONS Discontinued Medications Generic Name Dose Route Start Last Admin Trade Name Freq PRN Reason Stop Dose Admin Sodium Chloride 1,000 mls @ 999 mls/hr 09/17/25 17:25 09/17/25 18:40 Sod Chlor 0.9% 1000ml Bag IV 09/17/25 18:25 Infused .Q1H1M ONE Infusion Iopamidol 70 ml 09/17/25 20:26 09/17/25 20:26 Iopamidol-370 (76%);100ml Bottle IV 09/17/25 20:27 70 ml ONCE ONE Administration Sodium Chloride 50 ml 09/17/25 20:26 09/17/25 20:26 0.9 % Sodium Chloride 50 Ml Vial IV 09/17/25 20:27 50 ml ONCE ONE Administration Sodium Chloride 10 ml 09/17/25 20:26 09/17/25 20:26 Sodium Chloride 0.9% 10ml Syr (Rad Only) IV 09/17/25 20:27 10 ml ONCE ONE Administration ORDERS Category Date Time Status CT angio chest PE protocol Stat Cat Scan 09/17/25 19:11 Completed POCUS Point of Care (ER Only) Stat Exams 09/17/25 19:11 Completed Complete Blood Count Auto Diff Stat Lab 09/17/25 17:17 Completed Comprehensive Metabolic Panel Stat Lab 09/17/25 17:17 Completed D-Dimer Stat Lab 09/17/25 17:17 Completed HCG,Quantitative Stat Lab 09/17/25 17:17 Completed HIV Combo Stat Lab 09/17/25 17:17 Completed Hepatitis C Ab Qual. W/ RFX Stat Lab 09/17/25 17:17 Completed Magnesium Stat Lab 09/17/25 17:17 Completed NT Pro Brain Natriuretic Pep. Stat Lab 09/17/25 17:17 Completed PT INR [Prothrombin Time INR] Stat Lab 09/17/25 17:17 Completed Rapid PCR Covid and Flu A/B Stat Lab 09/17/25 17:32 Completed Strep Scrn Group A (Rapid) Stat Lab 09/17/25 19:08 Completed T4 (Thyroxine) Stat Lab 09/17/25 17:17 Completed TSH [Thyroid Stimulating Hormone] Stat Lab 09/17/25 17:17 Completed Troponin I Q3H Lab 09/17/25 20:45 Completed Troponin I Q3H Lab 09/17/25 23:30 Ordered Troponin I Stat Lab 09/17/25 17:17 Completed Urinalysis and Microscopic Stat Lab 09/17/25 17:22 Completed Strep Screen Confirmation Stat Micro 09/17/25 19:08 Received Urine Culture Stat Micro 09/17/25 17:22 Received Medical Decision Narrative: 40-year-old female presents to the emergency department with palpitation for 2 weeks and dyspnea and rhinorrhea for the last 2 days, differential diagnose include but not limited to cardiac arrhythmia, electrolyte disturbance, acute bronchitis, viral URI, anxiety reaction, panic attack, hypovolemia, PE among others I discussed this patient's case with the attending physician Dr. Tuttle he saw and examined the patient as well. Will obtain basic laboratory studies, EKG, hCG quant, magnesium level proBNP troponin urinalysis, and coagulation studies, TSH, T4, rapid PCR COVID, and flu and streptococcal rapid antigen swab, D-dimer. Also of note, nursing staff notified me that the patient was requesting fluids , will give patient 1 L IV NS. CBC unremarkable. Coags within normal limits CMP is unremarkable UA notable for elevated urine specific gravity 1.034, trace ketonuria trace hematuria, negative nitrites, negative leukocyte esterase. D-dimer is minimally elevated at 0.63 T4 is minimally elevated at 14.6, troponin within normal limits less than 0.01 proBNP within normal limit. Microscopic analysis of the patient's urine is notable for no WBCs 35 squamous epithelial cells and 3+ bacteria. TSH within normal limits COVID-19 and influenza are negative via PCR. Attending physician had a long discussion with the patient at the bedside about risk and benefits of obtaining advanced imaging for elevated D-dimer and PE risk. Patient would like to discuss this with her significant other/ over the phone. Will give patient time to do this. hcg is [id number] Patient was also able to discuss this with her PYROMETER MECHANIC, PYROMETER MECHANIC is in agreement with CT imaging patient would also like echocardiogram prior to CTA. Will obtain CTA chest without contrast PE protocol as well as echocardiogram. Group A rapid strep is negative. Please review attending physician note for POCUS bedside echocardiogram. Limited cardiac ultrasound Indication: [- -Shortness of breath ] Identified cardiac views: [-Cardiac parasternal long axis] [-Cardiac parasternal short axis] [-Cardiac apical four-chamber] [-Cardiac subxiphoid] Findings: [-Cardiac activity present -Wall motion grossly normal -Pericardial effusion absent -Right heart strain absent] Impression: -[Normal cardiac ultrasound] Images [were saved] to permanent archive The study [was] technically adequate CPT: 21695 This study was performed by me, and I personally interpreted all images/videos. Based on my clinical judgement, these images were [adequate/inadequate] and [did/did not] necessitate further imaging. I reviewed the patient's CTA chest with without contrast PE protocol along the corresponding radiologic report, no CT angiographic evidence of pulmonary embolism, motion artifact slightly limits sensitivity and specificity of the exam. Repeat troponin is less than 0.01. I discussed all results with the patient at the bedside patient is in agreement with the current discharge plan chest treatment plan, sure of the cause of patient's palpitations and episode of dyspnea, could have been URI versus anxiety type reaction, recommend follow-up with cardiology PCP and PYROMETER MECHANIC in the upcoming days/weeks. Patient has slated PYROMETER MECHANIC follow-up. Discussed presence of asymptomatic bacteria on the patient's urinalysis, patient would like to be treated for this, discussed all risks and benefits of treating with antibiotic therapy, will treat the patient with 100 mg p.o. Macrobid twice daily for asymptomatic bacteria. Patient was given strict ED return precautions. Patient voiced understanding and agreed with the current treatment plan/discharge plan <Mukul Tuttle, - Last Filed: 09/17/25 17:14> Medical Records Medical records reviewed: Yes I reviewed the patient's medical records. Dmitriy Inquiry Pt receiving controlled substance: No Dmitriy was queried for this patient: No Vital Signs: 09/17/25 17:19 09/17/25 17:32 09/17/25 18:30 Temperature 98.1 F Temperature Source Oral Pulse Rate 80 90 Pulse Rate [Right Radial] 84 Respiratory Rate 15 Blood Pressure 106/86 L 128/91 H Blood Pressure [Right Arm] 135/82 Blood Pressure Mean [Right Arm] 99 Blood Pressure Source [Right Arm] Automatic Cuff Blood Pressure Position [Right Arm] Supine 02 Sat by Pulse Oximetry 99 99 100 Oxygen Delivery Method Room Air Room Air 09/17/25 19:00 09/17/25 19:30 09/17/25 20:00 Temperature Temperature Source Pulse Rate 98 H 99 H 98 H Pulse Rate [Right Radial] Respiratory Rate Blood Pressure 121/82 118/80 125/75 Blood Pressure [Right Arm] Blood Pressure Mean [Right Arm] Blood Pressure Source [Right Arm] Blood Pressure Position [Right Arm] 02 Sat by Pulse Oximetry 99 99 97 Oxygen Delivery Method 09/17/25 21:00 Temperature Temperature Source Pulse Rate 95 H Pulse Rate [Right Radial] Respiratory Rate Blood Pressure 117/81 Blood Pressure [Right Arm] Blood Pressure Mean [Right Arm] Blood Pressure Source [Right Arm] Blood Pressure Position [Right Arm] 02 Sat by Pulse Oximetry 97 Oxygen Delivery Method Lab Data Lab Results 09/17/25 17:17: WBC 9.9, RBC 4.67, Hgb 13.7, Hct 40.7, MCV 87.2, MCH 29.3, MCHC 33.7, RDW 12.1, Plt Count 270, MPV 9.7, Neut % (Auto) 63.4, Lymph % (Auto) 25.6, Woodward % (Auto) 7.7, Eos % (Auto) 2.4, Baso % (Auto) 0.5, Neut # (Auto) 6.3, Lymph # (Auto) 2.5, Woodward # (Auto) 0.8, Eos # (Auto) 0.2, Baso # (Auto) 0.1, PT 11.4, INR 1.03, D-Dimer 0.63 H, Sodium 138, Potassium 3.8, Chloride 105, Carbon Dioxide 24, Anion Gap 12.8, BUN 17, Creatinine 0.80, Estimated Creat Clear 133, Estimated GFR 80, Est GFR ( Amer) 97, Glucose 86, Calcium 9.3, Magnesium 1.9, Total Bilirubin 0.2, AST 33, ALT 22, Alkaline Phosphatase 68, Troponin I < 0.01, NT-Pro-B Natriuret Pep 45.6, Total Protein 7.9, Albumin 4.4, Globulin 3.5 H, Albumin/Globulin Ratio 1.3, TSH 1.16, Thyroxine (T4) 14.6 H, HCG, Quant [id number] H, HCV Ab JACLYN w/Rflx PCR Qn Negative, HIV Ag/Ab Combo Qual Negative 09/17/25 17:22: Urine Color Yellow, Urine Appearance Clear, Urine pH 6.0, Ur Specific Lyman 1.034 H, Urine Protein Negative, Urine Glucose (UA) Negative, Urine Ketones Trace, Urine Blood Trace-i, Urine Nitrate Negative, Urine Bilirubin Negative, Urine Urobilinogen 0.2, Ur Leukocyte Esterase Negative, Urine RBC None, Urine WBC None, Ur Squamous Epith Cells 3-5, Urine Bacteria 3+ 09/17/25 17:32: SARS-CoV-2 (PCR) Not detected, Influenza A Untype (PCR) Not detected, Influenza Type B (PCR) Not detected 09/17/25 19:08: Group A Strep Rapid Negative 09/17/25 20:45: Troponin I < 0.01 Orders (Tests/Meds): ED MEDICATIONS Discontinued Medications Generic Name Dose Route Start Last Admin Trade Name Bebeto PRN Reason Stop Dose Admin Sodium Chloride 1,000 mls @ 999 mls/hr 09/17/25 17:25 09/17/25 18:40 Sod Chlor 0.9% 1000ml Bag IV 09/17/25 18:25 Infused .Q1H1M ONE Infusion Iopamidol 70 ml 09/17/25 20:26 09/17/25 20:26 Iopamidol-370 (76%);100ml Bottle IV 09/17/25 20:27 70 ml ONCE ONE Administration Sodium Chloride 50 ml 09/17/25 20:26 09/17/25 20:26 0.9 % Sodium Chloride 50 Ml Vial IV 09/17/25 20:27 50 ml ONCE ONE Administration Sodium Chloride 10 ml 09/17/25 20:26 09/17/25 20:26 Sodium Chloride 0.9% 10ml Syr (Rad Only) IV 09/17/25 20:27 10 ml ONCE ONE Administration ORDERS Category Date Time Status CT angio chest PE protocol Stat Cat Scan 09/17/25 19:11 Completed POCUS Point of Care (ER Only) Stat Exams 09/17/25 19:11 Completed Complete Blood Count Auto Diff Stat Lab 09/17/25 17:17 Completed Comprehensive Metabolic Panel Stat Lab 09/17/25 17:17 Completed D-Dimer Stat Lab 09/17/25 17:17 Completed HCG,Quantitative Stat Lab 09/17/25 17:17 Completed HIV Combo Stat Lab 09/17/25 17:17 Completed Hepatitis C Ab Qual. W/ RFX Stat Lab 09/17/25 17:17 Completed Magnesium Stat Lab 09/17/25 17:17 Completed NT Pro Brain Natriuretic Pep. Stat Lab 09/17/25 17:17 Completed PT INR [Prothrombin Time INR] Stat Lab 09/17/25 17:17 Completed Rapid PCR Covid and Flu A/B Stat Lab 09/17/25 17:32 Completed Strep Scrn Group A (Rapid) Stat Lab 09/17/25 19:08 Completed T4 (Thyroxine) Stat Lab 09/17/25 17:17 Completed TSH [Thyroid Stimulating Hormone] Stat Lab 09/17/25 17:17 Completed Troponin I Q3H Lab 09/17/25 20:45 Completed Troponin I Q3H Lab 09/17/25 23:30 Ordered Troponin I Stat Lab 09/17/25 17:17 Completed Urinalysis and Microscopic Stat Lab 09/17/25 17:22 Completed Strep Screen Confirmation Stat Micro 09/17/25 19:08 Received Urine Culture Stat Micro 09/17/25 17:22 Received ECG Data Tracing #1: I reviewed this ECG and interpreted as documented below: EKG personally interpreted by me demonstrates normal sinus rhythm at a rate of 81 bpm, normal axis, no IL prolongation, narrow QRS, no QTc prolongation. No ST elevation. There is [address] depression in leads III with T wave inversions Critical Care <MANISH Lee - Last Filed: 09/17/25 21:28> Critical Care Time Critical Care Time: No
--- NOTE | 2025-09-17 17:12 | ECG_ITS ---
APPROVED REPORT Exam: Resting ECG HR:81 bpm ECG Measurements Heart Rate 81 AXES AL 122 P 19 QRSd 93 QRS 66 QT 353 T 25 QTc 390 Conclusion Normal sinus rhythm Normal axis Normal intervals No STEMI Electronically signed by : Mukul Tuttle, 09/18/2025 01:28:01
--- OUTSIDE RECORDS SUMMARY | 2025-09-17 17:21 | XMS_ITS | Referral Summary ---
Author Organization [facility] ([place], [place], [place], [place], [place]) Address [address] [place] [address] Care Team Providers Care Support Clerk Name Role Phone Unavailable Primary Care [...] Date Luis rded Speak language other than [place] at home Not on file 03/13/2024 Want [...]
--- OUTSIDE RECORDS SUMMARY | 2025-09-17 17:22 | XMS_ITS | Patient Health Record ---
Author Organization [facility] Billing Info Address [address] [place], [place] [id number] Support Name Relationship Address Phone Carli Painter Emergency Contact Unknown Mimi Vyas Guarantor Unknown [phone] Reason For Referral No Information Plan Of Treatment No Information Insurance Providers Payer Name Payer Address Payer Phone Subscriber Number Group Number Insured Name Patient Relationship to Insured Coverage Start Date Coverage End Date [employer] PPO [address] [place], [place] [id number] [phone] [id number] Mimi Vyas Self - patient is the insured [phone]
--- OUTSIDE RECORDS SUMMARY | 2025-09-17 17:23 | XMS_ITS | Data Portability ---
Author Organization [employer] [facility] Address [address] [place] [address] Assessment No assessment recorded. Plan of Treatment Reminders Order Date Submit Date Provider Last Modified By Organization Details Last Modified Time Details Appointments None recorded. Lab HIV 1 + 2, meaningful use set 2024 025 [facility], [address] [place], [address], 5 15:08:06 Hepatitis C IgG Ab, qual, serum 2024 025 [facility] [address] [facility], [place], [address], 5 15:08:04 lipid panel, serum or plasma 2024 025 [facility], [address] [place], [address], 5 15:08:02 rapid flu (A+B) [address], [address] [facility], [place], [address], 5 11:01:32 rapid SARS CoV 2 Ag, QL, IA, upper respiratory specimen [address], [address] [place], [address], 5 11:01:30 CBC w/ auto diff 2024 025 [facility] ([place]), [address] [place], [address], 5 15:08:00 CMP, serum or plasma 2024 025 [facility] ([place]), [address] [place], [address], 5 15:08:01 dhea-sulfat e, serum 2024 025 [facility] ([place]), [address] [place], [address], 5 15:08:05 insulin, serum 2024 025 [facility] ([place]), [address] [place], [address], 5 15:08:06 TSH, serum, reflex free T4 [id number] [place] [address] ([place]), [address] [place], [address], 5 08:53:50 testosteron e, free + total, serum 2024 025 [facility] ([place]), [address] [place], [address], 5 15:08:03 prolactin, serum 2024 025 [facility] ([place]), [address] [place], [address], 5 15:08:05 cobalamin and folate panel, serum 2024 025 [facility]), [address] [place], [address], 15:08:03 Referral None recorded. Procedures None recorded. Surgeries None recorded. Imaging None recorded. Medication Orders acyclovir 400 mg tablet 2024 [facility], [address] [address], [place], [address], 11:46:52 Zepbound 2.5 mg/0.5 mL subcutaneou s pen injector 2024 025 [facility], [address] [facility] [address], [place], [address], 11:46:54 Patient TargetsNo targets recorded. Patient Instructions Encounter Date Encounter Id Patient Instructions Last Modified By Organization Details Last Modified Time 12/21/2024 [id number] cough: care instructions [email or web address] Not available 12/21/2024 11:01:29 12/30/2024 [id number] body mass index: care instructions Not available 12/30/2024 11:38:16 learning about healthy weight Not available 12/30/2024 11:38:16 Reason for Referral None Reported. Results Created Date Observation Date Name Description Value Unit Range Abnormal Flag Note LastModifiedBy Organization Detail LastModifiedTime 12/21/1912/22/2024 CBC WITH DIFFE RENTI AL/PL ATELE T WBC 4.0 x10e3 /uL 3.4-10 .8 normal Not Available [facility] ([facility]) [address] [place], [address], 12/28/2024 15:08:00 12/21/19 25 12/22/2024 CBC WITH DIFFE RENTI AL/PL ATELE T RBC 5.42 x10e6 /uL 3.77-5 .28 above high normal Not Available [facility] ([facility]) [address] [place], [address], 12/28/2024 15:08:00 12/21/19 25 12/22/2024 CBC WITH DIFFE RENTI AL/PL ATELE T hemoglobin 15.4 g/dL 11.1-1 5.9 normal Not Available [facility] ([facility]) [address] [place], [address], 12/28/2024 15:08:00 12/21/19 25 12/22/2024 CBC WITH DIFFE RENTI AL/PL ATELE T hematocrit 48.4 % 34.0-4 6.6 above high normal Not Available [facility] ([facility]) [address] [place], [address], 12/28/2024 15:08:00 12/21/19 25 12/22/2024 CBC WITH DIFFE RENTI AL/PL ATELE T MCV 89 fL 79-97 normal Not Available [facility] ([facility]) [address] [place], [address], 12/28/2024 15:08:00 12/21/19 25 12/22/2024 CBC WITH DIFFE RENTI AL/PL ATELE T MCH 28.4 pg 26.6-3 3.0 normal Not Available [facility] ([facility]) [address] [place], [address], 12/28/2024 15:08:00 12/21/19 25 12/22/2024 CBC WITH DIFFE RENTI AL/PL ATELE T MCHC 31.8 g/dL 31.5-3 5.7 normal Not Available [facility] ([facility]) [address] [place], [address], 12/28/2024 15:08:00 12/21/19 25 12/22/2024 CBC WITH DIFFE RENTI AL/PL ATELE T RDW 11.9 % 11.7-1 5.4 Not Available [facility] ([facility]) [address] [place], [address], 12/28/2024 15:08:00 12/21/19 25 12/22/2024 CBC WITH DIFFE RENTI AL/PL ATELE T platelets 219 x10e3 /uL 150-45 0 normal Not Available [facility] ([facility]) [address] [facility], [place], [address], 12/28/2024 15:08:00 12/21/19 25 12/22/2024 CBC WITH DIFFE RENTI AL/PL ATELE T neutrophils 47 % not estab. normal Not Available [facility] ([facility]) [address] [facility], [place], [address], 12/28/2024 15:08:00 12/21/19 25 12/22/2024 CBC WITH DIFFE RENTI AL/PL ATELE T lymphs 35 % not estab. normal Not Available [facility] ([facility]) [address] [facility], [place], [address], 12/28/2024 15:08:00 12/21/19 25 12/22/2024 CBC WITH DIFFE RENTI AL/PL ATELE T monocytes 13 % not estab. normal Not Available [facility] ([facility]) [address] [facility], [place], [address], 12/28/2024 15:08:00 12/21/19 25 12/22/2024 CBC WITH DIFFE RENTI AL/PL ATELE T eos 5 % not estab. normal Not Available [facility] ([facility]) [address] [facility], [place], [address], 12/28/2024 15:08:00 12/21/19 25 12/22/2024 CBC WITH DIFFE RENTI AL/PL ATELE T basos 0 % not estab. normal Not Available [facility] ([facility]) [address] [facility], [place], [address], 12/28/2024 15:08:00 12/21/19 25 12/22/2024 CBC WITH DIFFE RENTI AL/PL ATELE T immature cells VALET PARKING ATTENDANT Not Available [facility] ([facility]) [address] [place], [address], 12/28/2024 15:08:00 12/21/19 25 12/22/2024 CBC WITH DIFFE RENTI AL/PL ATELE T neutrophils (absolute) 1.9 x10e3 /uL 1.4-7. 0 normal Not Available [facility] ([facility]) [address] [place], [address], 12/28/2024 15:08:00 12/21/19 25 12/22/2024 CBC WITH DIFFE RENTI AL/PL ATELE T lymphs (absolute) 1.4 x10e3 /uL 0.7-3. 1 normal Not Available [facility] ([facility]) [address] [place], [address], 12/28/2024 15:08:00 12/21/19 25 12/22/2024 CBC WITH DIFFE RENTI AL/PL ATELE T monocytes(ab solute) 0.5 x10e3 /uL 0.1-0. 9 normal Not Available [facility] ([facility]) [address] [place], [address], 12/28/2024 15:08:00 12/21/19 25 12/22/2024 CBC WITH DIFFE RENTI AL/PL ATELE T eos (absolute) 0.2 x10e3 /uL 0.0-0. 4 normal Not Available [facility] ([facility]) [address] [place], [address], 12/28/2024 15:08:00 12/21/19 25 12/22/2024 CBC WITH DIFFE RENTI AL/PL ATELE T baso (absolute) 0.0 x10e3 /uL 0.0-0. 2 normal Not Available [facility] ([facility]) [address] [place], [address], 12/28/2024 15:08:00 12/21/19 25 12/22/2024 CBC WITH DIFFE RENTI AL/PL ATELE T immature granulocytes 0 % not estab. Not Available [facility] ([facility]) [address] [facility], [place], [address], 12/28/2024 15:08:00 12/21/19 25 12/22/2024 CBC WITH DIFFE RENTI AL/PL ATELE T immature grans (abs) 0.0 x10e3 /uL 0.0-0. 1 Not Available [facility] ([facility]) [address] [facility], [place], [address], 12/28/2024 15:08:00 12/21/19 25 12/22/2024 CBC WITH DIFFE RENTI AL/PL ATELE T NRBC VALET PARKING ATTENDANT Not Available [facility] ([facility]) [address] [facility], [place], [address], 12/28/2024 15:08:00 12/21/19 25 12/22/2024 CBC WITH DIFFE RENTI AL/PL ATELE T hematology comments: VALET PARKING ATTENDANT Not Available [facility] ([facility]) [address] [facility], [place], [address], 12/28/2024 15:08:00 12/21/19 25 12/22/2024 COMP. METAB OLIC PANEL (14) glucose 89 mg/dL 70-99 normal Not Available [facility] ([facility]) [address] [facility], [place], [address], 12/28/2024 15:08:13 12/21/19 25 12/22/2024 COMP. METAB OLIC PANEL (14) BUN 12 mg/dL 6-20 normal Not Available [facility] ([facility]) [address] [facility], [place], [address], 12/28/2024 15:08:13 12/21/19 25 12/22/2024 COMP. METAB OLIC PANEL (14) creatinine 0.77 mg/dL 0.57-1 .00 normal Not Available [facility] ([facility]) [address] [facility], [place], [address], 12/28/2024 15:08:13 12/21/19 25 12/22/2024 COMP. METAB OLIC PANEL (14) eGFR 102 mL/mi n/1.7 3 >59 normal Not Available [facility] ([facility]) [address] [facility], [place], [address], 12/28/2024 15:08:13 12/21/19 25 12/22/2024 COMP. METAB OLIC PANEL (14) BUN/creatini ne ratio 16 9-23 normal Not Available [facility] ([facility]) [address] [facility], [place], [address], 12/28/2024 15:08:13 12/21/19 25 12/22/2024 COMP. METAB OLIC PANEL (14) sodium 140 mmol/ L 134-14 4 normal Not Available [facility] ([facility]) [address] [facility], [place], [address], 12/28/2024 15:08:13 12/21/19 25 12/22/2024 COMP. METAB OLIC PANEL (14) potassium 3.5 mmol/ L 3.5-5. 2 normal Not Available [facility] ([facility]) [address] [facility], [place], [address], 12/28/2024 15:08:13 12/21/19 25 12/22/2024 COMP. METAB OLIC PANEL (14) chloride 104 mmol/ L 96-106 normal Not Available [facility] ([facility]) [address] [facility], [place], [address], 12/28/2024 15:08:13 12/21/19 25 12/22/2024 COMP. METAB OLIC PANEL (14) carbon dioxide, total 21 mmol/ L 20-29 normal Not Available [facility] ([facility]) [address] [facility], [place], [address], 12/28/2024 15:08:13 12/21/19 25 12/22/2024 COMP. METAB OLIC PANEL (14) calcium 9.0 mg/dL 8.7-10 .2 normal Not Available [facility] ([facility]) [address] [place], [address], 12/28/2024 15:08:13 12/21/19 25 12/22/2024 COMP. METAB OLIC PANEL (14) protein, total 7.3 g/dL 6.0-8. 5 normal Not Available [facility] ([facility]) [address] [place], [address], 12/28/2024 15:08:13 12/21/19 25 12/22/2024 COMP. METAB OLIC PANEL (14) albumin 4.4 g/dL 3.9-4. 9 normal Not Available [facility] ([facility]) [address] [place], [address], 12/28/2024 15:08:13 12/21/19 25 12/22/2024 COMP. METAB OLIC PANEL (14) globulin, total 2.9 g/dL 1.5-4. 5 Not Available [facility] ([facility]) [address] [place], [address], 12/28/2024 15:08:13 12/21/19 25 12/22/2024 COMP. METAB OLIC PANEL (14) bilirubin, total 0.2 mg/dL 0.0-1. 2 normal Not Available [facility] ([facility]) [address] [place], [address], 12/28/2024 15:08:13 12/21/19 25 12/22/2024 COMP. METAB OLIC PANEL (14) alkaline phosphatase 64 IU/L 44-121 normal Not Available [facility] ([facility]) [address] [place], [address], 12/28/2024 15:08:13 12/21/19 25 12/22/2024 COMP. METAB OLIC PANEL (14) AST (SGOT) 16 IU/L 0-40 normal Not Available [facility] ([facility]) [address] [place], [address], 12/28/2024 15:08:13 12/21/19 25 12/22/2024 COMP. METAB OLIC PANEL (14) ALT (SGPT) 14 IU/L 0-32 normal Not Available [facility] ([facility]) [address] [place], [address], 12/28/2024 15:08:13 12/21/19 25 12/22/2024 LIPID PANEL WITH LDL/H DL RATIO cholesterol, total 175 mg/dL 100-19 9 normal Not Available [facility] ([facility]) [address] [place], [address], 12/28/2024 15:08:14 12/21/19 25 12/22/2024 LIPID PANEL WITH LDL/H DL RATIO triglyceride s 93 mg/dL 0-149 normal Not Available [facility] ([facility]) [address] [place], [address], 12/28/2024 15:08:14 12/21/19 25 12/22/2024 LIPID PANEL WITH LDL/H DL RATIO HDL cholesterol 51 mg/dL >39 normal Not Available [facility] ([facility]) [address] [place], [address], 12/28/2024 15:08:14 12/21/19 25 12/22/2024 LIPID PANEL WITH LDL/H DL RATIO VLDL cholesterol syed 17 mg/dL 5-40 Not Available [facility] ([facility]) [address] [place], [address], 12/28/2024 15:08:14 12/21/19 25 12/22/2024 LIPID PANEL WITH LDL/H DL RATIO LDL chol calc ([facility]) 107 mg/dL 0-99 above high normal Not Available [facility] ([facility]) [address] [facility], [place], [address], 12/28/2024 15:08:14 12/21/19 25 12/22/2024 LIPID PANEL WITH LDL/H DL RATIO LDL calc comment: VALET PARKING ATTENDANT Not Available [facility] ([facility]) [address] [facility], [place], [address], 12/28/2024 15:08:14 12/21/19 25 12/22/2024 LIPID PANEL WITH LDL/H DL RATIO LDL/HDL ratio 2.1 ratio 0.0-3. 2 LDL/H DL Ratio Men Women 1/2 Avg.R isk 1.0 1.5 Avg.R isk 3.6 3.2 2X Avg.R isk 6.2 5.0 3X Avg.R isk 8.0 6.1 Not Available [facility] ([facility]) [address] [place], [address], 12/28/2024 15:08:14 12/21/19 25 12/22/2024 VITAM IN B12 AND FOLAT E vitamin B12 489 pg/mL 232-12 45 normal Not Available [facility] ([facility]) [address] [facility], [place], [address], 12/28/2024 15:08:16 12/21/19 25 12/22/2024 VITAM IN B12 AND FOLAT E folate (folic acid), serum 19.4 NG/mL >3.0 normal A serum folat e fernando ntrat ion of less than 3.1 ng/mL is consi dered to repre sent clini syed defic iency . Not Available [facility] ([facility]) [address] [facility], [place], [address], 12/28/2024 15:08:16 12/21/19 25 12/26/2024 TESTO STERO NE, FREE+ TOTAL LC/MS free testosterone (direct) 0.4 pg/mL 0.0-4. 2 Not Available [facility] ([facility]) [address] [facility], [place], [address], 12/28/2024 15:08:16 12/21/19 25 12/28/2024 TESTO STERO NE, FREE+ TOTAL LC/MS testosterone , total, lc/MS 16.8 NG/dL 10.0-5 5.0 Not Available [facility] ([facility]) [address] [facility], [place], [address], 12/28/2024 15:08:16 12/21/19 25 12/22/2024 HCV ANTIB LUDMILA CASCA DE(PC R/GEN O) HCV Ab Non Reacti ve non reacti ve Not Available [facility] ([facility]) [address] [facility], [place], [address], 12/28/2024 15:08:04 12/21/19 25 12/22/2024 HCV ANTIB LUDMILA CASCA DE(PC R/GEN O) interpretati on: Commen t Not infec suha with HCV unles s early or acute infec tion is suspe cted (whic h may be delay ed in an immun ocomp romis ed indiv idual ), or other evide nce exist s to indic ate HCV infec tion. Not Available [facility] ([facility]) [address] [facility], [place], [address], 12/28/2024 15:08:04 12/21/1912/28/2024 DHEA- SULFA TE, SERUM [...] - 286 Not Available [facility] [address] [place] [address], [place], [address], 12/28/2024 15:08:15 12/21/19 25 12/22/2024 PROLA CTIN prolactin 6.1 NG/mL 4.8-33 .4 normal Not Available [facility] ([facility]) [address] [place], [address], 12/28/2024 15:08:18 12/21/19 25 12/22/2024 HIV AB/P2 4 AG WITH REFLE X HIV Ab/P24 Ag screen Non Reacti ve non reacti ve HIV-1 /HIV- 2 antib odies and HIV-1 p24 antig en were NOT detec suha. There is no labor atory evide nce of HIV infec tion. HIV Negat afy Not Available [facility] ([facility]) [address] [place], [address], 12/28/2024 15:08:06 12/21/19 25 12/22/2024 INSUL IN insulin 6.6 uIU/m L 2.6-24 .9 normal Not Available [facility] ([facility]) [address] [place], [address], 12/28/2024 15:08:20 12/21/19 25 12/22/2024 TSH+F REE T4 TSH 1.160 uIU/m L 0.450- 4.500 normal Not Available [facility] ([facility]) [address] [place], [address], 12/28/2024 15:08:13 12/21/19 25 12/22/2024 TSH+F REE T4 T4,free(dire ct) 1.13 NG/dL 0.82-1 .77 normal Not Available [facility] ([facility]) [address] [place], [address], 12/28/2024 15:08:13 12/21/19 25 12/21/2024 rapid SARS CoV 2 Ag, QL, IA, upper respi rator y speci men SARS CoV Ag negati ve Not Available [facility] [address], [place], [address], 12/21/2024 11:01:11 12/21/19 25 12/21/2024 rapid flu (A+B) Flu A negati ve Not Available [facility] [address], [place], [address], 12/21/2024 11:00:28 12/21/19 25 12/21/2024 rapid flu (A+B) Flu B negati ve Not Available [facility] [address], [place], [address], 12/21/2024 11:00:28 Result Notes None recorded. Problems Name Problem SNOMED Code Status Onset Date Resolution Date Notes Provider Name and Address Organization Details Recorded Time Irregular periods 63011990 Active 025 Tiki Nye NP [address] [place] [address], [phone] 8, [employer] 5 10:58:34 Vitamin D deficiency 23229811 Active 025 Tiki Nye NP [address] [place] [address], [phone] 8, [employer] 5 10:59:46 Fatigue 43182050 Active 025 Tiki Nye NP [address] [place] [address], [phone] 8, [employer] 5 10:59:50 Cough 69800828 Active 025 Tiki Nye NP [address] [place] [address], [phone] 8, [employer] 5 11:00:54 Herpes simplex 81470306 Active 025 SUMMER LEONE NP [address] [place] [address], [phone] 8, [employer] 5 10:14:08 Problem Notes None recorded. Procedures Surgical History Date Name Laterality Status Provider Name and Address Organization Details Recorded Time 06/18/20 24 Date of Last Pap Smear completed [employer] 12/30/2024 11:14:51 Appendectomy completed [employer] 12/21/2024 09:54:40 excision of melanoma completed [employer] 12/21/2024 09:54:56 Ear Tube completed [facility] [employer] 12/21/2024 09:55:20 Imaging Results None recorded. Procedure [...] and Address Organization Details Last Updated DateTime 99586.8 3 g 34.4 kg/m2 165.1 cm 98.1 [degF] 98 /min 98 % 98 % 116/74 mm[Hg] Parth Mosso. 5 09:59:23 Date Recorded Body height Body mass index (BMI) Body weight Body temperature Heart rate Oxygen saturation Oxygen saturation in Arterial blood by Pulse oximetry Systolic And Diastolic Provider Name and Address Organization Details Last Updated DateTime 5 165.1 cm 34.6 kg/m2 38574.2 1 g 97.6 [degF] 75 /min 98 % 98 % 128/80 mm[Hg] Parth Mosso. 5 11:16:22 Social History Question Answer Notes LastModified by Organizat ion Details LastModified Time Tobacco Smoking Status Never Smoker [employer]. 12/21/2024 09:52:42 Do You Have An Advance Directive? No [email or web address] Information not available 12/30/2024 Is Your Home Air Conditioned? Yes [email or web address] Information not available 12/30/2024 If You Are , What Was Your Level Of Alcohol Consumption Prior To ? None [email or web address] Information not available 12/30/2024 Do You Wear A Helmet When Biking? No [email or web address] Information not available 12/30/2024 Are You Blind Or Do You Have Difficulty Seeing? No [email or web address] Information not available 12/30/2024 What Is Your Level Of Caffeine Consumption? Moderate Information not available 12/30/2024 What Type Of Water Pump Assembler Do You Use? Relative [email or web address] Information not available 12/30/2024 Are You Deaf Or Do You Have Serious Difficulty Hearing? No [email or web address] Information not available 12/30/2024 What Type Of Diet Are You Following? REGULAR [email or web address] Information not available 12/30/2024 Who Is Your Employer? [employer] [email or web address] Information not available 12/30/2024 How Many Days Of Moderate To Strenuous Exercise, Like A Brisk Walk, Did You Do In The Last 7 Days? 2 [email or web address] Information not available 12/30/2024 Have There Been Any Changes To Your Family Or Social Situation? No [email or web address] Information no t available 12/30/2024 Are There Any Guns Present In Your Home? No Information not available 12/30/2024 Which Of Your Hands Is Dominant? Right [email or web address] Information not available 12/30/2024 What Is Your Home Situation? Other [email or web address] Information not available 12/30/2024 Do You Have A Medical Power Of Line Maintainer Section? No [email or web address] Information not available 12/30/2024 What Was The Date Of Your Most Recent Tobacco Screening? 12/30/2024 [email or web address] Information not available 12/30/2024 Are There Any Occupational Health Risks Where You Work? No [email or web address] Information not available 12/30/2024 Do You Have Any Pets? Yes Information not available 12/30/2024 Do You Use Protection During Sex? No [email or web address] Information not available 12/30/2024 What Is Your Relationship Status? [email or web address] Information not available 12/21/2024 Have You Repeated Any Grades? No [email or web address] Information not available 12/30/2024 Do You Use Your Seat Belt Or Car Seat Routinely? Yes [email or web address] Information not available 12/30/2024 Are You Sexually Active? Yes [email or web address] Information not available 12/21/2024 Do You Have Any Siblings? 2 Information not available 12/30/2024 Do You Have Smoke And Carbon Monoxide Detectors In Your Home? Yes [email or web address] Information not available 12/30/2024 Are You Passively Exposed To Smoke? No [email or web address] Information no t available 12/30/2024 Are There Any Smokers In Your House? No [email or web address] Information not available 12/30/2024 How Much Tobacco Do You Smoke? No [email or web address] Information not available 12/21/2024 What Types Of Sporting Activities Do You Participate In? None At This Time [email or web address] Information not available 12/30/2024 Do You Use Sunscreen Routinely? Yes [email or web address] Information not available 12/30/2024 Has Tobacco Cessation Counseling Been Provided? Yes [email or web address] Information not available 12/21/2024 On What Date Was Tobacco Cessation Counseling Provided? 12/30/2024 [email or web address] Information not available 12/30/2024 How Many Years Have You Smoked Tobacco? 0 [email or web address] Information not available 12/21/2024 Do You Have Difficulty Walking Or Climbing Stairs? No Information not available 12/30/2024 Sex: Female Functional Status Question Answer Note LastModified by Organizat ion Details LastModified Time Do you use any illicit or recreational drugs? No [email or web address] Information not available 12/21/2024 What is your level of alcohol consumption? None [email or web address] Information not available 12/21/2024 Are you currently employed? Yes [email or web address] Information not available 12/30/2024 Are you able to walk independently without assistance or assistive devices? YESWOREST [email or web address] Information not available 12/30/2024 Do you have difficulty doing errands alone? No [email or web address] Information not available 12/30/2024 Are you able to care for yourself independently? Yes [email or web address] Information not available 12/30/2024 Do you have difficulty dressing, bathing, grooming, or toileting? No [email or web address] Information not available 12/30/2024 What is your exercise level? Occasional [email or web address] Information not available 12/30/2024 Mental Status Question Answer Note LastModified by Organization D etails LastModified Time Do you have difficulty concentrating, remembering or making decisions? No [email or web address] Information no t available 12/30/2024 Are you or have you been involved with bullying? No Information not available 12/30/2024 Family History Relationship Description Onset Age of this Age Resolved Age Notes LastModified by Organization Details LastModified Time Paternal Grandmother Arthritis [email or web address] Not available 11:14:51 Paternal Grandmother Hypertensive disorder Not available 2024 11:14:51 Medical History Condition [...] ICD10 Code Diagnosis IMO Codes Diagnosis Note [id number] Tiki Nye NP [facility] [address] [place] [address] 12/21/2024 09:38:07 12/21/2024 11:18:58 Adult health examination [id number] Z00.00 Irregular periods 499477 07 N92.6 Hyperlipid emia screening 820066801 Z13.220 Vitamin D deficiency 347 72576 E55.9 Fatigue 67791298 R53.83 Viral screening 92118954 4 Z11.59 Cough 57361481 R05.9 [id number] Tiki Nye NP [facility] [address] [facility] [place] [address] 12/30/2024 10:54:47 12/30/2024 11:37:15 Body mass index 30+ - obesity 975423871 Z68.30 STOP metformin Herpes simplex 45371106 B00.9 Health Concerns Section Related Observation LastModified by Organization Detai ls LastModified Time None Recorded Concern Status LastModified by Organization Details LastModified Time None Recorded Advance Directives Directive N: Payers Insurance Date Sequence Insurance Name Policy Number Policy Prabhakar Covered Member ID Prabhakar Member ID Guarantor Name 06/18/2025 1 [place]REFERRED PRIMARY (HMO) [id number] Mimi Macario [id number] Mimi Macario Notes Date Note Type [...] states that she sees Dr. Cruz in [place] for fertility. Patient states that she has [...] or concerns today. Tiki Nye NP [address] [place], [address], [employer] 12/21/2024 12:51:38 12/30/2024 text/html ROS as noted [...] for today's visit. Tiki Nye NP [address] [place], [address], [employer] 12/30/2024 12:26:41 OBGyn Episode No OBEpisode recorded.
--- OUTSIDE RECORDS SUMMARY | 2025-09-17 17:23 | XMS_ITS | Patient Health Record ---
Author Organization [facility] Address [address] [place] [address] Support Name Relationship Address Phone ARNULFO Macario Guarantor Unknown [phone] Reason For Referral No Information Medications Medication SIG (Take, Route, Frequency, Duration) Notes Start Date End Date Status Delsym *Please review a nd pick correct strength-formulation from [employer] options. If intended option is not shown, [...] Insured Coverage Start Date Coverage End Date [employer] [facility] [employer] [address] [place] [address] [id number] ARNULFO Macario Self - patient is the insured Medical (General) History Medical History History ICD Code depression poss . no confirmed test Surgical History Surgery Date(Month/Year) wisdom tooth extraction 2008
--- OUTSIDE RECORDS SUMMARY | 2025-09-17 17:23 | XMS_ITS | Clinical Summary ---
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
[2025-09-17 17:26] LABS: Hematocrit 40.7 % (37.0-47.0); Hemoglobin 13.7 g/dL (12.2-16.2); Immature Granulocytes % 0.4 %; Mean Corpuscular HGB Conc 33.7 g/dL (31.8-35.4); Mean Corpuscular Hemoglobin 29.3 pg (27.0-31.2); Mean Corpuscular Volume 87.2 fl (81-99); Nucleated Red Blood Cells % 0 %; Platelet Count 270 K/mm3 (142-424); Red Blood Count 4.67 M/mm3 (4.20-5.40); Red Cell Distribution Width-SD 38.7 fL; White Blood Count 9.9 K/mm3 (4.8-10.8)
[2025-09-17 17:32] LABS: Albumin Level 4.4 g/dl (3.5-5.0); Chloride 105 mmol/L (98-107); Potassium 3.8 mmoL/L (3.5-5.1); Sodium 138 mmol/L (136-145)
[2025-09-17] MEDS: 0.9 % SODIUM CHLORIDE 1000ML 1,000 ML 999 ML IV (17:32)
[2025-09-17 17:35] LABS: Alanine Aminotransferase 22 U/L (12-78); Albumin/Globulin Ratio 1.3 (1.1-1.8); Alkaline Phosphatase 68 U/L (38-126); Anion Gap 12.8 mEq/L (5-15); Aspartate Amino Transferase 33 U/L (14-36); Bilirubin,Total 0.2 mg/dl (0.2-1.3); Blood Urea Nitrogen 17 mg/dl (7-17); Calcium 9.3 mg/dl (8.4-10.2); Carbon Dioxide 24 mmol/L (22.0-30.0); Creatinine Clearance Estimated 133 mL/min (50-200); Creatinine,Serum 0.80 mg/dl (0.52-1.04); Estimated Glomerular Filt Rate 80 ml/min (>60); GFR (African American) 97 ML/MIN (>60); Globulin 3.5 g/dL (1.3-3.2); Glucose 86 mg/dl (74-100); Magnesium 1.9 mg/dl (1.6-2.3); Total Protein,Serum 7.9 g/dl (6.3-8.2)
[2025-09-17 17:36] LABS: Coronavirus 19, PCR Not Detected (NotDetected); Influenza A, PCR Not Detected (NotDetected); Influenza B, PCR Not Detected (NotDetected)
[2025-09-17 17:36] LABS: Microscopic, Urine URINE MICROSCOPIC (MICROSCOPIC)
[2025-09-17 17:40] LABS: INR 1.03 (0.9-1.1); Prothrombin Time 11.4 seconds (10.1-12.5)
[2025-09-17 17:40] LABS: Bilirubin,Urine Negative (Negative); Color,Urine YELLOW (Yellow); Glucose,Urine (UA) Negative (Negative); Ketones,Urine TRACE (Negative); Leukocyte Esterase,Urine Negative (Negative); PH,Urine 6.0 (5.0-8.5); Protein,Urine Negative (Negative); Urobilinogen,Urine 0.2 EU/dl (0.2)
[2025-09-17 17:45] LABS: NT Pro Brain Natriuretic Pep. 45.6 pg/mL (0-125)
[2025-09-17 17:49] LABS: Specific Gravity, Urine 1.034 (1.005-1.030)
[2025-09-17 17:50] LABS: D-Dimer 0.63 ug/mL (0.0-0.5)
[2025-09-17 17:51] LABS: Troponin I < 0.01 ng/ml (0.00-0.034)
[2025-09-17 17:58] LABS: T4 (Thyroxine) 14.6 ug/dl (5.53-11.0)
[2025-09-17 18:02] LABS: Bacteria,Urine 3+ /lpf
[2025-09-17 18:12] LABS: Thyroid Stimulating Hormone 1.16 uIU/mL (0.465-4.68)
[2025-09-17 18:30] LABS: Hepatitis C Ab Qual. W/ RFX NEGATIVE (Negative)
--- NOTE | 2025-09-17 19:11 | CT_ITS ---
PROCEDURE INFORMATION: Exam: CTA Chest Without And With Contrast Exam date and time: 09/17/2025 8:20 PM Age: 40 years old Clinical indication: Dyspnea and other: Elevated d-dimer; Additional info: Elevated d-dimer, dyspnea, preg TECHNIQUE: Imaging protocol: Computed tomographic angiography of the chest without and with contrast. Exam focused on the arteries. 3D rendering (Not supervised by radiologist): MIP and/or 3D reconstructed images were created by the technologist. Radiation optimization: All CT scans at this facility use at least one of these dose optimization techniques: automated exposure control; mA and/or kV adjustment per patient size (includes targeted exams where dose is matched to clinical indication); or iterative reconstruction. Contrast material: ISOVUE; Contrast volume: 75 ml; Contrast route: INTRAVENOUS (IV); COMPARISON: CT ABDOMEN PELVIS W CON 01/22/2023 8:58 PM FINDINGS: Pulmonary arteries: No CT angiography evidence of pulmonary embolism. Aorta: Unremarkable. No aortic aneurysm. No aortic dissection. Lungs: Unremarkable. No consolidation. No masses. Pleural spaces: Unremarkable. No pneumothorax. No pleural effusion. Heart: Unremarkable. No cardiomegaly. No pericardial effusion. Lymph nodes: Unremarkable. No enlarged lymph nodes. Bones/joints: Unremarkable. No acute fracture. Soft tissues: Unremarkable. Other findings: Motion artifacts slightly limits sensitivity and specificity of the examination. IMPRESSION: 1. No CT angiography evidence of pulmonary embolism. 2. Motion artifacts slightly limits sensitivity and specificity of the examination.
[2025-09-17 19:22] LABS: Strep Scrn Group A (Rapid) Negative (Negative)
[2025-09-17] MEDS: IOPAMIDOL-370 (76%);100ML BOTTLE 70 ML IV (20:26)
[2025-09-17] MEDS: 0.9 % SODIUM CHLORIDE 50 ML VIAL IV (20:26)
[2025-09-17] MEDS: SODIUM CHLORIDE 0.9% 10ML SYR (RAD ONLY) 10 ML IV (20:26)
[2025-09-17 21:17] LABS: Troponin I < 0.01 ng/ml (0.00-0.034)
== END 2025-09-17 21:37 | disposition home or self-care (01) ==
PROVIDERS: Physician Assistant; Emergency Provider Student in an Organized Health Care Education/Training Program
DX: O99.891 Other specified diseases and conditions complicating pregnancy (principal); R82.71 Bacteriuria; R00.2 Palpitations; Z3A.09 9 weeks gestation of pregnancy
CPT/HCPCS: 71275; 80053; 81001; 83735; 83880; 84436; 84443; 84484; 84702; 85025; 85378; 85610; 86803; 87086; 87389; 87430; 87636; 93005; 96365; 99285; J7030; Q9967